=== PATIENT | female | born 1945 | race Caucasian/White ===

== ENCOUNTER → 2020-09-23 16:13 | Outpatient (CLI) | payer MEDICARE, SELFPAY ==
[2017-03-07 13:18] VITALS: BMI 35.6
[2020-09-23 17:49] LABS: Absolute Lymphocyte Count 2.27 X10^3/uL (0.83-4.51); Absolute Neutrophil Count 4.5 X10^3/uL (2.0-7.7); Basophil# 0.07 X10^3/uL; Basophil% 0.9 % (0-1); Eosinophil# 0.14 X10^3/uL; Eosinophils% 1.8 % (0-5); Hematocrit 44.4 % (37-47); Hemoglobin 13.3 g/dL (12.0-15.0); Lymphocyte # 2.27 X10^3/ul (0.83-4.51); Lymphocyte % 29.5 % (19-41); Mean Corpuscular Hgb 28.9 pg (27.0-32.0); Mean Corpuscular Volume 96.5 fL (81-99); Mean Platelet Vol. 10.5 fl (6.2-12.0); Monocyte# 0.71 X10^3/uL; Monocyte% 9.2 % (0-10); NRBC Flagged by Analyzer 0 % (0-5); Neutrophil # 4.45 X10^3/uL (2.7-7.7); Neutrophil % 57.9 % (47-70); Platelet Count 300 K/mm3 (150-450); RBC Distribution Width SD 45.8 fl (35.1-43.9); White Blood Count 7.7 K/mm3 (4.4-11.0)
[2020-09-23 18:08] LABS: Vitamin B12 369 pg/mL (211-911)
[2020-09-23 18:26] LABS: ALB/GLOB Ratio 0.9 RATIO (0.9-2.4); AST(SGOT) 20 U/L (15-37); Alanine Aminotransfer ALT/SGPT 23 U/L (13-56); Albumin, Serum 3.7 g/dL (3.2-5.0); Alkaline Phosphatase 84 U/L (45-117); Anion Gap 7 (5-15); BUN 25 mg/dL (7-18); BUN/Creat Ratio 20.5 RATIO (10-20); Calcium,Total 9.6 mg/dL (8.5-10.1); Chloride 106 mmol/L (98-107); Cholesterol 257 mg/dL (200); Creatinine, Serum 1.22 mg/dL (0.55-1.02); EST Glomerular Filtration Rate 46 mL/min (>60); Est Glom Filt Rate - Afr Amer 55 mL/min (>60); Globulin 4.1 g/dL (2.2-4.2); Glucose 103 mg/dL (74-106); High Density Lipoprotein 45 mg/dL; Magnesium 2.3 mg/dL (1.6-2.6); Potassium 4.3 mmol/L (3.5-5.1); Protein, Total 7.8 g/dL (6.4-8.2); Sodium Level 138 mmol/L (136-145); Thyroid Stim Hormone (TSH) 2.31 uIU/mL (0.358-3.74); Triglycerides 205 mg/dL; Very Low Density Lipoprotein 41 mg/dL (5-40)
[2020-09-25 10:18] LABS: Hemoglobin A1c 6.4 % (3.8-5.6)
[2020-10-03 20:51] LABS: Vitamin B1, Thiamine 190.1 nmol/L (66.5-200.0)
== END ==
PROVIDERS: PCP Family Medicine; Referring Provider Family Medicine; Visit Provider Family Medicine
DX: I10 Essential (primary) hypertension (principal); G62.9 Polyneuropathy, unspecified; R73.09 Other abnormal glucose; R19.7 Diarrhea, unspecified
CPT/HCPCS: 36415; 80053; 80061; 82607; 83036; 83735; 84207; 84425; 84443; 85025

== ENCOUNTER → 2020-09-30 14:21 | Outpatient (CLI) | payer MEDICARE, SELFPAY ==
[2017-03-07 13:18] VITALS: BMI 35.6
[2020-09-30 17:54] LABS: Anion Gap 7 (5-15); BUN 27 mg/dL (7-18); BUN/Creat Ratio 23.5 RATIO (10-20); Calcium,Total 9.3 mg/dL (8.5-10.1); Chloride 107 mmol/L (98-107); Creatinine, Serum 1.15 mg/dL (0.55-1.02); EST Glomerular Filtration Rate 49 mL/min (>60); Est Glom Filt Rate - Afr Amer 59 mL/min (>60); Glucose 109 mg/dL (74-106); Potassium 4.2 mmol/L (3.5-5.1); Sodium Level 140 mmol/L (136-145)
[2020-09-30 18:06] LABS: Hemoglobin A1c 6.4 % (3.8-5.6)
== END ==
PROVIDERS: PCP Family Medicine; Referring Provider Family Medicine; Visit Provider Family Medicine
DX: R94.4 Abnormal results of kidney function studies (principal); R73.09 Other abnormal glucose
CPT/HCPCS: 36415; 80048; 83036

== ENCOUNTER → 2020-10-08 13:59 | Outpatient (CLI) | payer MEDICARE, SELFPAY ==
[2020-10-06 14:30] VITALS: BMI 37.8
--- NOTE | 2020-10-08 14:03 | ECHOD_ITS ---
Reason For Study: Murmur Procedure This was a 2D Doppler, Color Flow transthoracic echocardiogram. The study was technically difficult. Exam performed in department. Left Ventricle Normal size and thickness. Left ventricular systolic function is normal. The estimated ejection fraction is 65 %. Diastolic function is indeterminate. No regional wall motion abnormalities noted. Right Ventricle Normal RV size. Normal systolic function. Atria The left atrium is mildly enlarged. Normal right atrium. No doppler evidence for ASD. Mitral Valve There is moderate mitral annular calcification. Extension of the mitral annular calcification on the base of the posterior mitral valve leaflet. Mild (1+) mitral valve insufficiency. Tricuspid Valve Mild focal calcification of the tricuspid valve. Mild tricuspid valve insufficiency. Right ventricular systolic pressure estimated to be 29 mmHg. Aortic Valve Trisinus/trileaflet aortic valve. Mild focal aortic valve calcification. Pulmonic Valve The pulmonic valve is not well visualized. Great Vessels Normal sized aortic root. Pericardium/Pleural No pericardial effusion. MMode/2D Measurements & Calculations LVIDd: 5.0 cm IVSd: 1.0 cm Ao root diam: 2.5 cm LVIDs: 2.6 cm LVPWd: 1.0 cm RVDd: 3.3 cm FS: 48.0 % LAV(MOD-sp2): 66.2 ml LVAd ap4: 23.7 cm2 SV(MOD-sp4): 43.9 ml LVLd ap4: 7.2 cm EDV(MOD-sp4): 63.5 ml EDV(sp4-el): 66.3 ml LVAs ap4: 11.1 cm2 LVLs ap4: 5.3 cm ESV(MOD-sp4): 19.6 ml ESV(sp4-el): 20.0 ml EF(MOD-sp4): 69.1 % EF(sp4-el): 69.8 % SV(sp4-el): 46.3 ml LA A4 area: 18.6 cm2 LA dimension(2D): 3.4 cm RA A4 area: 13.4 cm2 Doppler Measurements & Calculations MV E max dionicio: 95.5 cm/sec Lat Peak E' Dionicio: 6.8 cm/sec Med Peak E' Dionicio: 5.7 cm/sec MV A max dionicio: 106.1 cm/sec E/E' lat: 14.1 E/E' med: 16.6 MV E/A: 0.90 Ao V2 max: 188.3 cm/sec LV V1 max: 90.2 cm/sec PA V2 max: 75.7 cm/sec Ao max P.2 mmHg LV V1 max P.3 mmHg Ao V2 mean: 135.8 cm/sec Ao mean P.1 mmHg Ao V2 VTI: 45.3 cm TR max dionicio: 255.7 cm/sec TR max P.2 mmHg ECHO/Echo Complete Interpretation Summary The study was technically difficult. Left ventricular systolic function is normal. The estimated ejection fraction is 65 %. The left atrium is mildly enlarged. There is moderate mitral annular calcification. Extension of the mitral annular calcification on the base of the posterior mitr al valve leaflet. Mild (1+) mitral valve insufficiency. Mild focal calcification of the tricuspid valve. Mild tricuspid valve insufficiency. Mild focal aortic valve calcification. Right ventricular systolic pressure estimated to be 29 mmHg. Diastolic function is indeterminate. Ordering Physician: Garry Dillon Referring Physician: Garry Dillon Performed By: Ava Welch, CRISELDA, RVT
== END ==
PROVIDERS: PCP Family Medicine; Referring Provider Family Medicine; Visit Provider Family Medicine
DX: R01.1 Cardiac murmur, unspecified (principal)
CPT/HCPCS: 93306

== ENCOUNTER 2020-11-04 07:42 | Day surgery (SDC) | payer MEDICARE, SELFPAY ==
[2020-10-06 14:30] VITALS: BMI 37.8
[2020-11-04] VITALS (16 sets, daily range): BP systolic 104–147; BP diastolic 50–105; PULSE 57–85; RESP 16–18; TEMP 35.4–36.3; O2SAT 93–100; BMI 36.8
--- NOTE | 2020-11-04 08:09 | PCM.HP.BLA ---
History and Physical Date of Admission: 11/04/20 Intake Visit Reasons: [facility]SCOPE Allergies Penicillins Allergy (Verified 10/06/20 14:30) Hives Sulfa (Sulfonamide Antibiotics) Allergy (Verified 10/06/20 14:30) Hives morphine Adverse Reaction (Verified 10/06/20 14:30) Nausea/Vom/Diarrhea Medications diphenoxylate-atropine 2.5 mg-0.025 mg tablet 1 tab PO DAILY 10/06/20 [History Confirmed 10/06/20] losartan 100 mg tablet mg PO 10/06/20 [History Confirmed 10/06/20] metoprolol succinate 100 mg tablet,extended release 24 hr 100 mg PO BID 10/06/20 [History Confirmed 10/06/20] omeprazole 20 mg capsule,delayed release 20 mg PO DAILY 10/06/20 [History Confirmed 10/06/20] sertraline 100 mg tablet 100 mg PO DAILY 10/06/20 [History Confirmed 10/06/20] COUNT INCLUDES THE [facility] Medical History (Updated 10/06/20 @ 16:[address] Tom Parnell MD) Depression Diarrhea GERD (gastroesophageal reflux disease) HTN (hypertension) Macular degeneration Surgical History (Updated 10/06/20 @ 14:29 by Maricel Boyd) S/P carpal tunnel release S/P laparoscopic cholecystectomy S/P shoulder replacement S/P tonsillectomy Family History (Updated 10/06/20 @ 14:40 by Maricel Boyd) Father Colon cancer Grandmother CVA (cerebral vascular accident) Grandfather CVA (cerebral vascular accident) Mother Heart disease Social History (Updated 10/06/20 @ 14:29 by Maricel Boyd) Smoking Status: Former smoker alcohol intake: current alcohol intake frequency: holidays/special occasions only HPI HPI HPI: TING CORRIGAN, is a 74 F who presents to the office today for surgical consultation regarding diarrhea and Hemoccult positive stool. The patient is referred by Dr Garry Dillon and a written copy my surgical consult recommendations will be returned to him. The patient is recently converted her care from the [facility] to Dr. Dillon. Apparently she has had chronic diarrhea. Recent stool analysis performed at the [facility] was Hemoccult positive. Laboratory currently does not demonstrate a anemia with a hemoglobin of 13.3 and hematocrit 44.4. BUN is 25 and creatinine 1.22 with an estimated GFR of 46. This would be chronic kidney disease stage IIIa. It is also of note that recent laboratory detects triglyceride levels of 205 with a cholesterol level of 257 and an LDL of 171 with a VLDL 41. It is of additional note that the patient is on chronic omeprazole therapy. She has been taking it routinely for at least 4 years. She has never had a previous upper endoscopy. Her most recent colonoscopy was April 13, 2011. This was performed by Dr. Juice Weinstein. Diverticulosis was identified. Moderate spasm in the sigmoid colon. Random biopsies were performed for microcytic colitis. It is of note that there is increased colon cancer risk due to colon cancer in her father. Repeat examination at 5 years was recommended. ROS General General: Yes fatigue; No weight change, appetite, colon cancer, breast cancer or weakness HEENT HEENT: No difficulty swallowing, eye injury, eye surgery, swollen glands or hoarseness Endo Endocrine: No thyroid disease, diabetes mellitus, thyroid cancer, Hair loss, heat intolerance or cold intolerance Skin Skin: No rash or changing moles Breast Breast: No left breast lump, right breast lump, nipple discharge, breast pain, abnormal mammogram, abnormal US or breast enlargement Musc Musculoskeletal: Yes back problems and arthritis; No rheumatoid arthritis, gout or joint pain Cardio Cardiovascular: Yes murmur and high blood pressure; No pacemaker, heart disease, atrial fibrillation, heart attack, heart stent, palpitations, shortness of breat with exertion or chest pain Psych Psychiatric: Yes depression and anxiety; No hearing voices Resp Respiratory: No shortness of breath, No sleep apnea, No cough, No COPD, No asthma, No emphysema and No wheezing Gastro Gastrointestinal: No abdominal pain, No nausea or vomiting, Yes diarrhea, Yes constipation, Yes blood in stool, Yes acid reflux, Yes hemorrhoids, No ulcers, No gallbladder problem and No black,tarry stools Matthias Hematologic: No blood thinners, No blood disorders, No bleeding, No anemia and No blood clots Neuro Neurologic: No system reviewed and no additional complaints, except as documented, No as per HPI, No abnormal gait, No abnormal hearing, No abnormal movements, No abnormal speech, No behavioral changes, No burning sensations, No confusion, No convulsions, No disequilibrium, No dizziness, No localized weakness, No frequent falls, No headache(s), No lack of coordination, No loss of vision, No memory loss, Yes numbness, No other visual disturbances, No radicular pain, No restless legs, No sensory deficit, No syncope, Yes tingling, No tremor(s), No weakness and No other Exam Const General: cooperative, healthy appearing, comfortable and no acute distress Nutritional Appearance: obese Orientation: alert, awake and oriented x3 HENMT Head: normal to inspection Eyes General: appearance normal, both eyes and all related structures Resp Effort & Inspection: respiratory distress Auscultation: clear to auscultation bilaterally Cardio Rate: regular rate Rhythm: regular rhythm GI Palpation: soft Other: Overweight, mildly diffusely tender, no focal masses, body habitus makes examination challenging Musc Cervical Spine: normal cervical lordosis Neuro Cognition: normal cognition Extrem General: no calf tenderness bilaterally Psych Thought Process: normal COVID (Procedure Consent) Procedure Criteria Procedure Criteria: Yes Elective The surgeon/proceduralist and patient have discussed in detail the risk of exposure to and/or potential harm posed by the COVID-19 virus with having a surgery/procedure at this time versus the risk of delaying the surgery/procedure. It is not possible to know either the risk of delaying the surgery or procedure or chance of getting an infection with perfect accuracy, but a joint decision was made between the patient and the surgeon/proceduralist to proceed at this time with the scheduled surgery/procedure as indicated on the consent form. Assessment and Plan Assessment and Plan (1) Family history of colon cancer in father: Status: Acute (2) Heme positive stool: Status: Acute (3) Chronic diarrhea: Status: Chronic (4) GERD (gastroesophageal reflux disease): Status: Acute Plan Details Additional Comments: I recommend to the patient a combined esophagogastroduodenoscopy with possible biopsy and colonoscopy with possible biopsy or polypectomy as indicated. She is aware of the technique, benefit, risk and alternatives. She has had an opportunity to ask and have questions answered. It is of note that she previously has documented a more difficult colonoscopy performed by Dr. Juice Weinstein April 14, 2011. Family history of colon cancer in her father. Ongoing GERD symptoms and utilization of a PPI. We will utilize a 2-day bowel prep. I anticipate using monitored anesthesia care. I appreciate the opportunity of assisting with her surgical care Copy: Dr Garry Parnell M.D., F.A.C.S. Coding Level of Care Code 54735 Diagnoses Family history of colon cancer in father Z80.0 Heme positive stool R19.5 Chronic diarrhea K52.9 GERD (gastroesophageal reflux disease) K21.9 I have re-examined the patient. There are no clinical changes since date of exam.
[2020-11-04] MEDS: Lactated Ringers 1,000 ML 100 ML IV (08:35)
--- NOTE | 2020-11-04 09:00 | IMM_PTH ---
PATIENT: TING CORRIGAN LOC: EN U#:[id number] AGE/SX: 75/F ROOM: RE11/04/[address]: Dr. Tom Parnell MD : 1945 BED: DIS: 11/04/2020 SPEC #: [id number] RECD: 11/04/20 12:15 STATUS: GLORIA REQ #: [id number] RIGO: 11/04/20 09:[address]: Tom Parnell DEPT: IMMUNOHISTOCHEMISTRY RECD BY: Bia Wiseman ENTERED: 11/04/20 12:16 SP TYPE: IMMUNO OTHR DR: Dr. Garry Dillon MD Tissues: A - Stomach, NOS Procedures: H Pylori (initial) PHYSICIAN & INSTITUTION [place] [address] SPECIMEN INFORMATION: Tissue Source: A ? Antral biopsy Clinical Info: Heme-positive stool, chronic diarrhea, GERD, family history colon cancer Specimen Number: [id number] CPT code: 43611 METHODOLOGY: Deparaffinized sections of prefer/formalin-fixed tissue or PAP/DQ stained slides are incubated with monoclonal/polyclonal antibodies/oligonucleotide probes. Localization is made via biotin free immunoperoxidase method. Appropriate controls are performed and reacted as expected. Results on target cell population are indicated in the following table: RESULTS: ANTIBODY / CLONE RESULT Block A H Pylori (polyclonal) negative These tests were developed and their performance characteristics determined by [facility]. They may not have been cleared or approved by the U.S. Food and Drug Administration. The FDA has determined that such clearance or approval is not necessary. INTERPRETATION: A. Antral biopsy: Negative for Helicobacter pylori organisms. VICKI:melissa 11/05/2020
--- NOTE | 2020-11-04 09:00 | EGD_PTH ---
PATIENT: TING CORRIGAN LOC: EN U#:[id number] AGE/SX: 75/F ROOM: RE11/04/[address]: Dr. Tom Parnell MD : 1945 BED: DIS: 11/04/2020 SPEC #: [id number] RECD: 11/04/20 10:25 STATUS: GLORIA KRISTYN #: [id number] RIGO: 11/04/20 09:[address]: Tom Parnell DEPT: SURGICAL PATHOLOGY RECD BY: Debbie Rivers ENTERED: 11/04/20 13:16 SP TYPE: EGD BIOPSY OT DR: Dr. Garry Dillon MD Tissues: A - Gastric mucous membrane B - Esophagus, NOS C - COLON BIOPSY D - COLON BIOPSY E - COLON BIOPSY Procedures: Special Stain Group II Surgery Specimen Level IV Alcian Blue/PAS (control) HEADER OPERATION: Colonoscopy, EGD ([facility] [place], [place]) PRE-OP DIAGNOSIS: Heme-positive stool, chronic diarrhea, GERD, family history colon cancer TISSUE SUBMITTED: A - Antral biopsy for H. pylori and path, B - Distal esophagus biopsy, C - Random colon biopsies, D - Hepatic flexure polyp, E - Proximal transverse MICROSCOPIC DIAGNOSIS A. Antral biopsy: A fragment of gastric mucosa with minimal chronic inflammation and congestion. See comment. B. Distal esophagus, biopsy: Fragments of gastroesophageal mucosa with chronic inflammation. Intestinal metaplasia (goblet cell metaplasia) is not identified. See comment. C. Colon, random biopsy: Fragments of colonic mucosa, no pathologic diagnosis. D. Hepatic flexure polyp, biopsy: Fragments of tubular adenoma. E. Proximal transverse colon polyp, biopsy: Tubular adenoma. SJ:rg 11/05/2020 COMMENT A. The results of immunohistochemistry for Helicobacter pylori will be reported separately ([id number]). C. Alcian blue/PAS stain with matched control is used in the evaluation of the specimen. MICROSCOPIC DESCRIPTION Slides are reviewed. GROSS DESCRIPTION A - Received in fixative is one container labeled with the patient's name and designated antral biopsy. The specimen consists of one irregular fragment of light jones soft tissue that measures 0.3 x 0.1 x 0.1 cm. The specimen is totally submitted in one cassette. B - Received in fixative is one container labeled with the patient's name and designated distal esophagus biopsy. The specimen consists of multiple irregular fragments of light jones soft tissue that in aggregate measure 0.4 x 0.2 x 0.1 cm. The specimen is totally submitted in one cassette. C - Received in fixative is one container labeled with the patient's name and designated random colon biopsy. The specimen consists of multiple irregular fragments of light jones soft tissue that in aggregate measure 1.4 x 0.3 x 0.1 cm. The specimen is totally submitted in one cassette. D - Received in fixative is one container labeled with the patient's name and designated hepatic flexure polyp. The specimen consists of multiple irregular fragments of light jones soft tissue that in aggregate measure 1.5 x 0.6 x 0.3 cm. The specimen is totally submitted in one cassette. E - Received in fixative is one container labeled with the patient's name and designated proximal transverse polyp. The specimen consists of one irregular fragment of light jones soft tissue that measures 0.2 x 0.2 x 0.1 cm. The specimen is totally submitted in one cassette. / SJ:rg 11/04/20 TC:1 CPT: 97679 x5, 24243
[2020-11-04] MEDS: 0.9% Saline Lock 10 ML Syringe IV (09:42)
--- NOTE | 2020-11-04 10:19 | OP.CCLET_ITS ---
11/04/2020 Garry Dillon [address] [place] [address] Re : Upper GI endoscopy procedure for Sirena Crain Dear Dr. Dillon This procedure was performed on Wednesday, November 04, 2020. My impressions and recommendations are as follows: Impressions : - Reflux esophagitis. Biopsied. - Small hiatal hernia. - Erythematous mucosa in the antrum. Biopsied. - Bilious gastric fluid. - Normal examined duodenum. Recommendations : - Discharge patient to home. - Resume previous diet. - Continue present medications. - Use sucralfate tablets 1 gram PO QID. - Return to my office in 1 week. My findings are described in the full procedure note, which is enclosed. If I can be of further assistance, please feel free to contact me at Doctor phone number(s): Work: . Sincerely, Tom Parnell MD 11/04/2020 10:18:34 AM This report has been signed electronically.
--- NOTE | 2020-11-04 10:19 | OP.EGD_ITS ---
Patient Name: Sirena Crain Procedure Date: 11/04/2020 9:18 AM Date of : 1945 Age: 75 Procedure: Upper GI endoscopy Indications: Heartburn Providers: Tom Parnell MD Referring MD: Tom Parnell MD Medicines: See the Anesthesia note for documentation of the administered medications Complications: No immediate complications. Procedure: Pre-Anesthesia Assessment: - Prior to the procedure, a History and Physical was performed, and patient medications and allergies were reviewed. The patient's tolerance of previous anesthesia was also reviewed. The risks and benefits of the procedure and the sedation options and risks were discussed with the patient. All questions were answered, and informed consent was obtained. Prior Anticoagulants: The patient has taken no previous anticoagulant or antiplatelet agents. ASA Grade Assessment: II - A patient with mild systemic disease. After reviewing the risks and benefits, the patient was deemed in satisfactory condition to undergo the procedure. After obtaining informed consent, the endoscope was passed under direct vision. Throughout the procedure, the patient's blood pressure, pulse, and oxygen saturations were monitored continuously. The gastroscope was introduced through the mouth, and advanced to the second part of duodenum. The upper GI endoscopy was accomplished without difficulty. The patient tolerated the procedure well. Scope In: 9:26:23 AM Scope Out: 9:31:32 AM Total Procedure Duration Time 0 hours 5 minutes 9 seconds Findings: Esophagitis with no bleeding was found 40 cm from the incisors. Biopsies were taken with a cold forceps for histology. A small hiatal hernia was present. Diffuse mildly erythematous mucosa without bleeding was found in the gastric antrum. Biopsies were taken with a cold forceps for histology. Bilious fluid was found in the gastric antrum. The examined duodenum was normal. Impression: - Reflux esophagitis. Biopsied. - Small hiatal hernia. - Erythematous mucosa in the antrum. Biopsied. - Bilious gastric fluid. - Normal examined duodenum. Recommendation: - Discharge patient to home. - Resume previous diet. - Continue present medications. - Use sucralfate tablets 1 gram PO QID. - Return to my office in 1 week. Procedure Code(s): --- Professional --- 32920, Esophagogastroduodenoscopy, flexible, transoral; with biopsy, single or multiple Diagnosis Code(s): --- Professional --- K21.0, Gastro-esophageal reflux disease with esophagitis K44.9, Diaphragmatic hernia without obstruction or gangrene K31.89, Other diseases of stomach and duodenum R12, Heartburn CPT copyright 2017 [employer]. All rights reserved. The codes documented in this report are preliminary and upon finish inspector review may be revised to meet current compliance requirements. Tom Parnell MD 11/04/2020 10:18:34 AM This report has been signed electronically. Number of Addenda: 0 Note Initiated On: 11/04/2020 9:18 AM
--- NOTE | 2020-11-04 10:24 | OP.COLON_ITS ---
Patient Name: Sirena Crain Procedure Date: 11/04/2020 9:33 AM Date of : 1945 Age: 75 Procedure: Colonoscopy Indications: Family history of colon cancer in a first-degree relative Providers: Tom Parnell MD Referring MD: Tom Parnell MD Medicines: See the Anesthesia note for documentation of the administered medications Patient Profile: Last Colonoscopy: March 2011. Complications: No immediate complications. Procedure: Pre-Anesthesia Assessment: - Prior to the procedure, a History and Physical was performed, and patient medications and allergies were reviewed. The patient's tolerance of previous anesthesia was also reviewed. The risks and benefits of the procedure and the sedation options and risks were discussed with the patient. All questions were answered, and informed consent was obtained. Prior Anticoagulants: The patient has taken no previous anticoagulant or antiplatelet agents. ASA Grade Assessment: II - A patient with mild systemic disease. After reviewing the risks and benefits, the patient was deemed in satisfactory condition to undergo the procedure. After I obtained informed consent, the scope was passed under direct vision. Throughout the procedure, the patient's blood pressure, pulse, and oxygen saturations were monitored continuously. The colonoscope was introduced through the anus and advanced to the cecum, identified by appendiceal orifice and ileocecal valve. The colonoscopy was performed with moderate difficulty due to multiple polyps. The patient tolerated the procedure well. The quality of the bowel preparation was good. Scope In: 9:34:30 AM Scope Withdrawal Time 0 hours 30 minutes 8 seconds Scope Out: 10:11:39 AM Total Procedure Duration Time 0 hours 37 minutes 9 seconds Findings: Hemorrhoids were found on perianal exam. A 29 mm polyp was found in the hepatic flexure. The polyp was sessile. Polypectomy was attempted, initially using a saline injection-lift technique with a hot snare. Polyp resection was incomplete with this device. This intervention then required a different device and polypectomy technique. The polyp was removed with a hot snare. Polyp resection was incomplete, and the resected tissue was partially retrieved. To prevent bleeding post-intervention, one hemostatic clip was successfully placed. There was no bleeding at the end of the procedure. Area was tattooed with an injection of 5 mL of Batsheva ink. A 5 mm polyp was found in the proximal transverse colon. The polyp was sessile. The polyp was removed with a hot snare. Resection and retrieval were complete. Multiple diverticula were found in the sigmoid colon and descending colon. Biopsies for histology were taken with a cold forceps from the entire colon for evaluation of microscopic colitis. Impression: - Hemorrhoids found on perianal exam. - One 29 mm polyp at the hepatic flexure, partially removed with a hot snare, piecemeal. Polyp resection was incomplete, and the resected tissue was retrieved. Clip was placed. Tattooed with batsheva ink. - One 5 mm polyp in the proximal transverse colon, removed with a hot snare. Resected and retrieved. - Diverticulosis in the sigmoid colon and in the descending colon. - Biopsies were taken with a cold forceps from the entire colon for evaluation of microscopic colitis. Recommendation: - Discharge patient to home. - Resume previous diet. - Continue present medications. - Repeat colonoscopy in 1 month for surveillance based on pathology results. - Return to my office in 1 week. Procedure Code(s): --- Professional --- 25174, Colonoscopy, flexible; with removal of tumor(s), polyp(s), or other lesion(s) by snare technique 60349, Colonoscopy, flexible; with directed submucosal injection(s), any substance 87552, 59, Colonoscopy, flexible; with biopsy, single or multiple Diagnosis Code(s): --- Professional --- K64.9, Unspecified hemorrhoids D12.3, Benign neoplasm of transverse colon (hepatic flexure or splenic flexure) Z80.0, Family history of malignant neoplasm of digestive organs K57.30, Diverticulosis of large intestine without perforation or abscess without bleeding CPT copyright 2017 [employer]. All rights reserved. The codes documented in this report are preliminary and upon outreach director review may be revised to meet current compliance requirements. Tom Parnell MD 11/04/2020 10:24:35 AM This report has been signed electronically. Number of Addenda: 0 Note Initiated On: 11/04/2020 9:33 AM
--- NOTE | 2020-11-04 10:25 | OP.CCLET_ITS ---
11/04/2020 Garry Dillon [address] [place] [address] Re : Colonoscopy procedure for Sirena Crain Dear Dr. Dillon This procedure was performed on Wednesday, November 04, 2020. My impressions and recommendations are as follows: Impressions : - Hemorrhoids found on perianal exam. - One 29 mm polyp at the hepatic flexure, partially removed with a hot snare, piecemeal. Polyp resection was incomplete, and the resected tissue was retrieved. Clip was placed. Tattooed with evaristo ink. - One 5 mm polyp in the proximal transverse colon, removed with a hot snare. Resected and retrieved. - Diverticulosis in the sigmoid colon and in the descending colon. - Biopsies were taken with a cold forceps from the entire colon for evaluation of microscopic colitis. Recommendations : - Discharge patient to home. - Resume previous diet. - Continue present medications. - Repeat colonoscopy in 1 month for surveillance based on pathology results. - Return to my office in 1 week. My findings are described in the full procedure note, which is enclosed. If I can be of further assistance, please feel free to contact me at Doctor phone number(s): Work: . Sincerely, Tom Parnell MD 11/04/2020 10:24:35 AM This report has been signed electronically.
--- NOTE | 2020-11-04 10:29 | RAD_ITS ---
STUDY: X-RAY - ABDOMEN/PELVIS REASON FOR EXAM: Female, 75 years old. Post colonoscopy clip placement. TECHNIQUE: Two AP supine views of the abdomen and pelvis. COMPARISON: None. FINDINGS: Elevation of the right hemidiaphragm. There is an unremarkable bowel gas pattern. The patient is status post cholecystectomy. Clip has been placed in the region of the proximal ascending colon just distal to the ileocecal valve. Normal soft tissue structures. There are diffuse degenerative changes of the visualized lumbar spine. RAD/Abd Decub and/or Erect(Portabl IMPRESSION: The clip is in the proximal ascending colon just distal to the ileocecal valve. Electronically Signed: Tenzin Real MD at 12:08 EDT , Service support ,
[2020-11-04 11:30] LABS: Absolute Lymphocyte Count 1.14 X10^3/uL (0.83-4.51); Absolute Neutrophil Count 5.4 X10^3/uL (2.0-7.7); Basophil# 0.03 X10^3/uL; Basophil% 0.4 % (0-1); Eosinophil# 0.13 X10^3/uL; Eosinophils% 1.8 % (0-5); Hematocrit 38.8 % (37-47); Hemoglobin 12.3 g/dL (12.0-15.0); Lymphocyte # 1.14 X10^3/ul (0.83-4.51); Lymphocyte % 15.6 % (19-41); Mean Corp Hgb Conc 31.7 g/dL (32-36); Mean Corpuscular Hgb 29.7 pg (27.0-32.0); Mean Corpuscular Volume 93.7 fL (81-99); Monocyte% 8.2 % (0-10); NRBC Flagged by Analyzer 0 % (0-5); Neutrophil # 5.38 X10^3/uL (2.7-7.7); Neutrophil % 73.5 % (47-70); Platelet Count 225 K/mm3 (150-450); RBC Distribution Width CV 12.6 % (11.6-14.6); RBC Distribution Width SD 43.4 fl (35.1-43.9); Red Blood Count 4.14 M/mm3 (4.2-5.4); White Blood Count 7.3 K/mm3 (4.4-11.0)
[2020-11-04 11:45] LABS: Anion Gap 6 (5-15); BUN 14 mg/dL (7-18); BUN/Creat Ratio 11.8 RATIO (10-20); Chloride 106 mmol/L (98-107); Creatinine, Serum 1.19 mg/dL (0.55-1.02); EST Glomerular Filtration Rate 47 mL/min (>60); Est Glom Filt Rate - Afr Amer 57 mL/min (>60); Estimated Creatinine Clearance 38.24 ml/min; Glucose 135 mg/dL (74-106); Potassium 3.7 mmol/L (3.5-5.1); Sodium Level 140 mmol/L (136-145)
== END 2020-11-04 13:34 ==
LOC: EN 07:44 → AC 07:44
PROVIDERS: PCP Family Medicine; Referring Provider Family Medicine; Visit Provider Surgery
PROC: 0DJD8ZZ Inspection of Lower Intestinal Tract, Via Natural or Artificial Opening Endoscopic (ICD-10-PCS; CPT 45378; principal; 2020-11-04 08:55)
DX: D12.3 Benign neoplasm of transverse colon (principal); K21.00 Gastro-esophageal reflux disease with esophagitis, without bleeding; K64.9 Unspecified hemorrhoids; K57.30 Diverticulosis of large intestine without perforation or abscess without bleeding; K44.9 Diaphragmatic hernia without obstruction or gangrene; Z80.0 Family history of malignant neoplasm of digestive organs; F32.9 Major depressive disorder, single episode, unspecified; I12.9 Hypertensive chronic kidney disease with stage 1 through stage 4 chronic kidney disease, or unspecified chronic kidney disease; N18.31 Chronic kidney disease, stage 3a; E66.9 Obesity, unspecified; Z68.36 Body mass index [BMI] 36.0-36.9, adult; Z87.891 Personal history of nicotine dependence; Z79.899 Other long term (current) drug therapy; Z20.822 Contact with and (suspected) exposure to COVID-19
CPT/HCPCS: 43239; 45380; 45381; 74019; 80048; 85025; 87426; 88305; 88313; 88342; C9803; J7120; A4216; A4648; J2405

== ENCOUNTER → 2020-11-05 11:28 | Outpatient (CLI) | payer MEDICARE, SELFPAY ==
[2020-11-04 08:18] VITALS: BMI 36.8
[2020-11-05 15:09] LABS: Hematocrit 39.4 % (37-47); Hemoglobin 12.4 g/dL (12.0-15.0); Mean Corp Hgb Conc 31.5 g/dL (32-36); Mean Corpuscular Hgb 29.7 pg (27.0-32.0); Mean Corpuscular Volume 94.3 fL (81-99); Platelet Count 264 K/mm3 (150-450); RBC Distribution Width SD 44.8 fl (35.1-43.9); Red Blood Count 4.18 M/mm3 (4.2-5.4); White Blood Count 9.1 K/mm3 (4.4-11.0)
== END ==
PROVIDERS: PCP Family Medicine; Referring Provider Family Medicine; Visit Provider Physician Assistant
DX: R10.9 Unspecified abdominal pain (principal)
CPT/HCPCS: 36415; 85027

== ENCOUNTER → 2021-02-09 15:00 | Outpatient (CLI) | payer MEDICARE, SELFPAY ==
[2021-02-09 17:52] LABS: Absolute Lymphocyte Count 1.74 X10^3/uL (0.83-4.51); Absolute Neutrophil Count 4.6 X10^3/uL (2.0-7.7); Basophil# 0.05 X10^3/uL; Basophil% 0.7 % (0-1); Eosinophil# 0.12 X10^3/uL; Eosinophils% 1.7 % (0-5); Hematocrit 43.7 % (37-47); Hemoglobin 13.9 g/dL (12.0-15.0); Lymphocyte # 1.74 X10^3/ul (0.83-4.51); Lymphocyte % 24.4 % (19-41); Mean Corp Hgb Conc 31.8 g/dL (32-36); Mean Corpuscular Hgb 30.6 pg (27.0-32.0); Mean Corpuscular Volume 96.3 fL (81-99); Mean Platelet Vol. 10.3 fl (6.2-12.0); Monocyte# 0.63 X10^3/uL; Monocyte% 8.8 % (0-10); NRBC Flagged by Analyzer 0 % (0-5); Neutrophil # 4.56 X10^3/uL (2.7-7.7); Neutrophil % 63.8 % (47-70); Platelet Count 300 K/mm3 (150-450); RBC Distribution Width CV 12.9 % (11.6-14.6); Red Blood Count 4.54 M/mm3 (4.2-5.4); White Blood Count 7.1 K/mm3 (4.4-11.0)
[2021-02-09 18:09] LABS: ALB/GLOB Ratio 0.8 RATIO (0.9-2.4); AST(SGOT) 23 U/L (15-37); Alanine Aminotransfer ALT/SGPT 24 U/L (13-56); Albumin, Serum 3.4 g/dL (3.2-5.0); Alkaline Phosphatase 96 U/L (45-117); Anion Gap 7 (5-15); BUN 21 mg/dL (7-18); BUN/Creat Ratio 18.3 RATIO (10-20); Calcium,Total 8.8 mg/dL (8.5-10.1); Chloride 104 mmol/L (98-107); Cholesterol 146 mg/dL (200); Creatinine, Serum 1.15 mg/dL (0.55-1.02); EST Glomerular Filtration Rate 49 mL/min (>60); Est Glom Filt Rate - Afr Amer 59 mL/min (>60); Globulin 4.1 g/dL (2.2-4.2); Glucose 106 mg/dL (74-106); High Density Lipoprotein 45 mg/dL; Phosphorus 4.1 mg/dL (2.5-4.9); Potassium 4.8 mmol/L (3.5-5.1); Protein, Total 7.5 g/dL (6.4-8.2); Sodium Level 137 mmol/L (136-145); Triglycerides 157 mg/dL; Very Low Density Lipoprotein 31 mg/dL (5-40)
[2021-02-09 18:14] LABS: Hemoglobin A1c 6.4 % (3.8-5.6)
[2021-02-10 08:31] LABS: PTHIN 101.2 pg/mL (18.4-80.1)
== END ==
PROVIDERS: PCP Family Medicine; Referring Provider Family Medicine; Visit Provider Family Medicine
DX: N18.30 Chronic kidney disease, stage 3 unspecified (principal); E78.5 Hyperlipidemia, unspecified; R73.02 Impaired glucose tolerance (oral)
CPT/HCPCS: 36415; 80053; 80061; 83036; 83970; 84100; 85025

== ENCOUNTER 2021-09-10 14:52 | Outpatient (CLI) | payer MEDICARE, SELFPAY ==
[2021-09-10 18:17] LABS: Absolute Lymphocyte Count 2.05 X10^3/uL (0.83-4.51); Absolute Neutrophil Count 4.7 X10^3/uL (2.0-7.7); Basophil# 0.04 X10^3/uL; Basophil% 0.5 % (0-1); Eosinophils% 1.3 % (0-5); Hematocrit 43.8 % (37-47); Hemoglobin 13.9 g/dL (12.0-15.0); Lymphocyte # 2.05 X10^3/ul (0.83-4.51); Lymphocyte % 26.6 % (19-41); Mean Corp Hgb Conc 31.7 g/dL (32-36); Mean Corpuscular Volume 94.4 fL (81-99); Mean Platelet Vol. 10.6 fl (6.2-12.0); Monocyte# 0.77 X10^3/uL; NRBC Flagged by Analyzer 0 % (0-5); Neutrophil # 4.72 X10^3/uL (2.7-7.7); Neutrophil % 61.2 % (47-70); Platelet Count 315 K/mm3 (150-450); RBC Distribution Width CV 12.5 % (11.6-14.6); RBC Distribution Width SD 43.7 fl (35.1-43.9); Red Blood Count 4.64 M/mm3 (4.2-5.4); White Blood Count 7.7 K/mm3 (4.4-11.0)
[2021-09-10 18:40] LABS: AST(SGOT) 17 U/L (15-37); Alanine Aminotransfer ALT/SGPT 20 U/L (13-56); Albumin, Serum 3.8 g/dL (3.2-5.0); Alkaline Phosphatase 105 U/L (45-117); Anion Gap 5 (5-15); BUN 28 mg/dL (7-18); BUN/Creat Ratio 23.9 RATIO (10-20); Calcium,Total 9.2 mg/dL (8.5-10.1); Chloride 108 mmol/L (98-107); Cholesterol 143 mg/dL (200); Creatinine, Serum 1.17 mg/dL (0.55-1.02); EST Glomerular Filtration Rate 48 mL/min (>60); Est Glom Filt Rate - Afr Amer 58 mL/min (>60); Glucose 110 mg/dL (74-106); High Density Lipoprotein 50 mg/dL; Phosphorus 3.8 mg/dL (2.5-4.9); Potassium 4.5 mmol/L (3.5-5.1); Protein, Total 7.8 g/dL (6.4-8.2); Sodium Level 138 mmol/L (136-145); Thyroid Stim Hormone (TSH) 2.36 uIU/mL (0.358-3.74); Triglycerides 122 mg/dL; Very Low Density Lipoprotein 24 mg/dL (5-40)
[2021-09-10 20:54] LABS: Hemoglobin A1c 6.4 % (3.8-5.6)
[2021-09-11 08:04] LABS: PTHIN 120.5 pg/mL (18.4-80.1)
== END 2021-09-10 23:59 | disposition home or self-care (01) ==
LOC: MFPLAB 14:58
PROVIDERS: PCP Family Medicine; Referring Provider Family Medicine; Visit Provider Family Medicine
DX: I12.9 Hypertensive chronic kidney disease with stage 1 through stage 4 chronic kidney disease, or unspecified chronic kidney disease (principal); N18.30 Chronic kidney disease, stage 3 unspecified; R73.02 Impaired glucose tolerance (oral)
CPT/HCPCS: 36415; 80053; 80061; 82306; 83036; 83970; 84100; 84443; 85025

== ENCOUNTER 2021-10-13 07:56 | Day surgery (SDC) | payer MEDICARE, SELFPAY ==
[2021-10-13] VITALS (7 sets, daily range): BP systolic 84–144; BP diastolic 40–78; PULSE 55–72; RESP 16; TEMP 36.4–36.7; O2SAT 95–100; BMI 37.5
--- NOTE | 2021-10-13 | COLBX_PTH ---
PATIENT: TING CORRIGAN LOC: EN U#:[id number] AGE/SX: 76/F ROOM: RE10/13/[address]: Dr. Tom Parnell MD : 1945 BED: DIS: 10/13/2021 SPEC #: [id number] RECD: 10/13/21 13:08 STATUS: GLORIA MCCOLLUMCaity #: [id number] RIGO: 10/13/21 00:[address]: Tom Parnell DEPT: SURGICAL PATHOLOGY RECD BY: Lito Henriquez ENTERED: 10/13/21 13:08 SP TYPE: COLON BX OTHR DR: Dr. Garry Dillon MD Tissues: A - Ascending colon B - Gastric mucous membrane C - Descending colon Procedures: Surgery Specimen Level IV HEADER OPERATION: Colonoscopy (MAC), polypectomy PRE-OP DIAGNOSIS: Adenomatous colon polyp TISSUE SUBMITTED: A - Proximal ascending polyp, B - Hepatic flexure polyp, C - Descending polyps (x2) MICROSCOPIC DIAGNOSIS A. Proximal ascending colon, biopsy: Fragments of tubular adenoma. B. Colonic polyp at hepatic flexure, biopsy: Fragments of tubular adenoma. C. Descending colon polyps, biopsy: Fragments of tubular adenoma. AM:melissa 10/14/2021 MICROSCOPIC DESCRIPTION Slides are reviewed. GROSS DESCRIPTION A - Received in fixative is one container labeled with the patient's name and designated proximal ascending colon polyp. The specimen consists of multiple irregular fragments of light jones soft tissue that in aggregate measure 0.9 x 0.9 x 0.3 cm. The specimen is totally submitted in one cassette. B - Received in fixative is one container labeled with the patient's name and designated hepatic flexure polyp. The specimen consists of multiple irregular fragments of light jones soft tissue mixed with fecal material that in aggregate measure 2 x 1 x 0.1 cm. The specimen is totally submitted in one cassette. C - Received in fixative is one container labeled with the patient's name and designated descending polyps. The specimen consists of multiple irregular fragments of light jones soft tissue mixed with fecal material that in aggregate measure 1 x 1 x 0.3 cm. The specimen is totally submitted in one cassette. / VICKI:melissa 10/13/2021 TC:5 CPT: 64103 x3
--- NOTE | 2021-10-13 08:12 | PCM.HP.BLA ---
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 Is patient in pain?: No Allergies Penicillins Allergy (Verified 10/05/21 14:39) Hives Sulfa (Sulfonamide Antibiotics) Allergy (Verified 10/05/21 14:39) Hives morphine Adverse Reaction (Verified 10/05/21 14:39) Nausea/Vom/Diarrhea Medications diphenoxylate-atropine 2.5 mg-0.025 mg tablet 1 tab PO DAILY PRN 10/06/20 [History Confirmed 10/05/21] losartan 100 mg tablet 100 mg PO DAILY 10/06/20 [History Confirmed 10/05/21] metoprolol succinate 100 mg tablet,extended release 24 hr 100 mg PO BID 10/06/20 [History Confirmed 10/05/21] omeprazole 20 mg capsule,delayed release 20 mg PO DAILY 10/06/20 [History Confirmed 10/05/21] sertraline 100 mg tablet 100 mg PO DAILY 10/06/20 [History Confirmed 10/05/21] vit C,Z-Ez-sfehi-lutein-zeaxan [PreserVision AREDS-2] 1 tab PO DAILY 10/30/20 [History Confirmed 10/05/21] ergocalciferol (vitamin D2) 1,250 mcg (50,000 unit) capsule PO 10/05/21 [History Confirmed 10/05/21] gabapentin 100 mg capsule mg PO 10/05/21 [History Confirmed 10/05/21] Is last menstrual period known: No Post menopausal: Yes Patient : No PFSH Medical History (Updated 10/05/21 @ 14:[address] Tom Parnell MD) Abdominal pain Arthritis Back pain Depression Diabetes Diarrhea Gastric reflux GERD (gastroesophageal reflux disease) History of edema History of IBS History of renal disease History of stress test HTN (hypertension) Hx of echocardiogram Macular degeneration Migraine headache Non-smoker Wears glasses Surgical History (Updated 10/05/21 @ 14:28 by Rose Remy) History of colonoscopy (~2020) S/P carpal tunnel release S/P laparoscopic cholecystectomy S/P shoulder replacement S/P tonsillectomy Family History Father Colon cancer Grandmother CVA (cerebral vascular accident) Grandfather CVA (cerebral vascular accident) Mother Heart disease Social History Smoking Status: Never smoker alcohol intake: current alcohol intake frequency: holidays/special occasions only HPI HPI HPI: SIRENA CRAIN, is a 75 F who presents to the office today for surgical follow-up of an incompletely resected hepatic flexure tubular adenoma. Her most recent visit with me was November 10, 2020. She has no complaints today. She has become more sedentary. Body weight is increased. She is not currently getting any purposeful exercise. No abdominal pain. No bright red blood per rectum. She does present with her daughter today. She is in good spirits. My interpretation plan as of November 10, 2020 reflects the following Additional Comments: Suspected bile reflux gastritis improved with sucralfate therapy. I recommend at this time that she continue treatment with the sucralfate. She may consider adjusting doses to see if eliminating a morning or midday or evening dose affects her symptoms. She may be able to get the treatment down to three or two dosings per day. She will see how she clinically progresses with that plan. Otherwise she may need to stay on 30 minutes before meals and at bedtime for more extended period of time. Regarding her diarrhea I did not demonstrate any microcytic colitis. She does not have specific complaints today. Regarding her tubular adenoma of the hepatic flexure. This was incompletely resected due to visualization and access problems. It was marked with a clip and was marked with Batsheva ink tattoo. On pathology there is no evidence of atypia or dysplasia. I recommend to her follow-up colonoscopy at 6 months. She may have that done locally or if she prefers we can arrange a tertiary referral. The patient and her daughter have had an opportunity to ask and have questions answered and are comfortable with this approach. My previous notes reflect the following HPI: SIRENA CRAIN, is a 75 F who presents to the office today for surgical follow-up status post combined esophagogastroduodenoscopy and colonoscopy that are performed for her on November 04, 2020. Her preoperative diagnosis with Hemoccult positive stool and chronic diarrhea. Her upper endoscopy demonstrated some mild gastritis and I felt that this was possibly bile reflux gastritis. She had some chronic distal esophagitis. H. pylori was negative. Random colonic biopsies were unremarkable. At the hepatic flexure she had a 29 mm sessile polyp. I was not able to completely resected. I left a clip there and tattooed the area with ink. Images demonstrated it to be at the hepatic flexure on plain films. It is of note that in the proximal transverse colon I was able to remove and a 5 mm polyp. Sigmoid diverticulosis additionally noted. She had some abdominal discomfort medially post procedure. It was not clear whether this was simply due to the amount of work during the procedure. Plain films of the abdomen were not remarkable and she otherwise did well. On today's visit she notes that her epigastric discomfort reflux symptoms are markedly improved using the sucralfate. She does note that if she skips a dose that she does have recurrent symptoms. As I believe that her symptoms are secondary to bile reflux at this point I recommend that she continue . Antral biopsy: A fragment of gastric mucosa with minimal chronic inflammation and congestion.See comment. B. Distal esophagus, biopsy:Fragments of gastroesophageal mucosa with chronic inflammation.Intestinal metaplasia (goblet cell metaplasia) is not identified.See comment. C. Colon, random biopsy:Fragments ofcolonic mucosa, no pathologic diagnosis. D. Hepatic flexure polyp, biopsy:Fragments of tubular adenoma. E. Proximal transverse colon polyp, biopsy:Tubular adenoma Patient Name: Sirena Crain Procedure Date: 11/04/2020 9:33 AM Date of : 1945 Age: 75 Procedure: Colonoscopy Indications: Family history of colon cancer in a first-degree relative Providers: Tom Parnell MD Referring MD: Tom Parnell MD Medicines: See the Anesthesia note for documentation of the administered medications Patient Profile: Last Colonoscopy: March 2011. Complications: No immediate complications. Procedure: Pre-Anesthesia Assessment: - Prior to the procedure, a History and Physical was performed, and patient medications and allergies were reviewed. The patient's tolerance of previous anesthesia was also reviewed. The risks and benefits of the procedure and the sedation options and risks were discussed with the patient. All questions were answered, and informed consent was obtained. Prior Anticoagulants: The patient has taken no previous anticoagulant or antiplatelet agents. ASA Grade Assessment: II - A patient with mild systemic disease. After reviewing the risks and benefits, the patient was deemed in satisfactory condition to undergo the procedure. After I obtained informed consent, the scope was passed under direct vision. Throughout the procedure, the patient's blood pressure, pulse, and oxygen saturations were monitored continuously. The colonoscope was introduced through the anus and advanced to the cecum, identified by appendiceal orifice and ileocecal valve. The colonoscopy was performed with moderate difficulty due to multiple polyps. The patient tolerated the procedure well. The quality of the bowel preparation was good. Scope In: 9:34:30 AM Scope Withdrawal Time 0 hours 30 minutes 8 seconds Scope Out: 10:11:39 AM Total Procedure Duration Time 0 hours 37 minutes 9 seconds Findings: Hemorrhoids were found on perianal exam. A 29 mm polyp was found in the hepatic flexure. The polyp was sessile. Polypectomy was attempted, initially using a saline injection-lift technique with a hot snare. Polyp resection was incomplete with this device. This intervention then required a different device and polypectomy technique. The polyp was removed with a hot snare. Polyp resection was incomplete, and the resected tissue was partially retrieved. To prevent bleeding post-intervention, one hemostatic clip was successfully placed. There was no bleeding at the end of the procedure. Area was tattooed with an injection of 5 mL of Batsheva ink. A 5 mm polyp was found in the proximal transverse colon. The polyp was sessile. The polyp was removed with a hot snare. Resection and retrieval were complete. Multiple diverticula were found in the sigmoid colon and descending colon. Biopsies for histology were taken with a cold forceps from the entire colon for evaluation of microscopic colitis. Impression: - Hemorrhoids found on perianal exam. - One 29 mm polyp at the hepatic flexure, partially removed with a hot snare, piecemeal. Polyp resection was incomplete, and the resected tissue was retrieved. Clip was placed. Tattooed with batsheva ink. - One 5 mm polyp in the proximal transverse colon, removed with a hot snare. Resected and retrieved. - Diverticulosis in the sigmoid colon and in the descending colon. - Biopsies were taken with a cold forceps from the entire colon for evaluation of microscopic colitis. Recommendation: - Discharge patient to home. - Resume previous diet. - Continue present medications. - Repeat colonoscopy in 1 month for surveillance based on pathology results. - Return to my office in 1 week. Procedure Code(s): --- Professional --- 44252, Colonoscopy, flexible; with removal of tumor(s), polyp(s), or other lesion(s) by snare technique 46238, Colonoscopy, flexible; with directed submucosal injection(s), any substance 33966, 59, Colonoscopy, flexible; with biopsy, single or multiple Diagnosis Code(s): --- Professional --- K64.9, Unspecified hemorrhoids D12.3, Benign neoplasm of transverse colon (hepatic flexure or splenic flexure) Z80.0, Family history of malignant neoplasm of digestive organs K57.30, Diverticulosis of large intestine without perforation or abscess without bleeding CPT copyright 2017 [employer]. All rights reserved. The codes documented in this report are preliminary and upon heel nail rasper review may be revised to meet current compliance requirements. Tom Parnell MD 11/04/2020 10:24:35 AM This report has been signed electronically. Number of Addenda: 0 Note Initiated On: 11/04/2020 9:33 AM Patient Name: Sirena Crain Procedure Date: 11/04/2020 9:18 AM Date of : 1945 Age: 75 Procedure: Upper GI endoscopy Indications: Heartburn Providers: Tom Parnell MD Referring MD: Tom Parnell MD Medicines: See the Anesthesia note for documentation of the administered medications Complications: No immediate complications. Procedure: Pre-Anesthesia Assessment: - Prior to the procedure, a History and Physical was performed, and patient medications and allergies were reviewed. The patient's tolerance of previous anesthesia was also reviewed. The risks and benefits of the procedure and the sedation options and risks were discussed with the patient. All questions were answered, and informed consent was obtained. Prior Anticoagulants: The patient has taken no previous anticoagulant or antiplatelet agents. ASA Grade Assessment: II - A patient with mild systemic disease. After reviewing the risks and benefits, the patient was deemed in satisfactory condition to undergo the procedure. After obtaining informed consent, the endoscope was passed under direct vision. Throughout the procedure, the patient's blood pressure, pulse, and oxygen saturations were monitored continuously. The gastroscope was introduced through the mouth, and advanced to the second part of duodenum. The upper GI endoscopy was accomplished without difficulty. The patient tolerated the procedure well. Scope In: 9:26:23 AM Scope Out: 9:31:32 AM Total Procedure Duration Time 0 hours 5 minutes 9 seconds Findings: Esophagitis with no bleeding was found 40 cm from the incisors. Biopsies were taken with a cold forceps for histology. A small hiatal hernia was present. Diffuse mildly erythematous mucosa without bleeding was found in the gastric antrum. Biopsies were taken with a cold forceps for histology. Bilious fluid was found in the gastric antrum. The examined duodenum was normal. Impression: - Reflux esophagitis. Biopsied. - Small hiatal hernia. - Erythematous mucosa in the antrum. Biopsied. - Bilious gastric fluid. - Normal examined duodenum. Recommendation: - Discharge patient to home. - Resume previous diet. - Continue present medications. - Use sucralfate tablets 1 gram PO QID. - Return to my office in 1 week. Procedure Code(s): --- Professional --- 38671, Esophagogastroduodenoscopy, flexible, transoral; with biopsy, single or multiple Diagnosis Code(s): --- Professional --- K21.0, Gastro-esophageal reflux disease with esophagitis K44.9, Diaphragmatic hernia without obstruction or gangrene K31.89, Other diseases of stomach and duodenum R12, Heartburn CPT copyright 2017 [employer]. All rights reserved. The codes documented in this report are preliminary and upon heel nail rasper review may be revised to meet current compliance requirements. Tom Parnell MD 11/04/2020 10:18:34 AM This report has been signed electronically. Number of Addenda: 0 Note Initiated On: 11/04/2020 9:18 AM Exam Const General: cooperative, comfortable and no acute distress Nutritional Appearance: obese morbidly obese [facility] Head: normal to inspection Eyes General: appearance normal, both eyes and all related structures Resp Effort & Inspection: normal respiratory effort Auscultation: clear to auscultation bilaterally Cardio Rate: regular rate Rhythm: regular rhythm GI Other: Soft, nontender, notably overweight, I cannot detect any internal organs, bowel sounds present unremarkable Musc Cervical Spine: normal cervical lordosis Neuro General: patient alert, patient awake and patient oriented x3 Extrem General: no calf tenderness Psych Appearance: grossly normal Assessment and Plan Assessment and Plan (1) Adenomatous colon polyp: Status: Acute Qualifiers: Colon location: ascending Qualified Code(s): D12.2 - Benign neoplasm of ascending colon Plan - Dr. Tom Parnell MD: Patient has a history of a tubular adenoma of the hepatic flexure of the colon which was tattooed and marked with a marking clip but could not be completely resected. Previous colonoscopy was November 04, 2020. I have recommended to her a repeat attempt. I would anticipate utilizing an adult colonoscope. We have discussed the technique, benefit, risk, alternatives. She is aware that no guarantees of success have been offered. She has had an opportunity to ask and have questions answered. We will perform this with monitored anesthesia care. The patient is aware that there is an increased risk of bleeding or perforation or incomplete resection. Copy: Dr Garry Parnell M.D., F.A.C.S. I have re-examined the patient. There are no clinical changes since date of exam.
[2021-10-13] MEDS: Lactated Ringers 1,000 ML 15 ML IV (08:38)
--- NOTE | 2021-10-13 10:17 | OP.COLON_ITS ---
Patient Name: Sirena Crain Procedure Date: 10/13/2021 9:38 AM Date of : 1945 Age: 76 Procedure: Colonoscopy Indications: High risk colon cancer surveillance: Personal history of colonic polyps Providers: Tom Parnell MD Medicines: See the Anesthesia note for documentation of the administered medications Patient Profile: Last Colonoscopy: 1 year ago. Complications: No immediate complications. Procedure: Pre-Anesthesia Assessment: - Prior to the procedure, a History and Physical was performed, and patient medications and allergies were reviewed. The patient's tolerance of previous anesthesia was also reviewed. The risks and benefits of the procedure and the sedation options and risks were discussed with the patient. All questions were answered, and informed consent was obtained. Prior Anticoagulants: The patient has taken no previous anticoagulant or antiplatelet agents. ASA Grade Assessment: II - A patient with mild systemic disease. After reviewing the risks and benefits, the patient was deemed in satisfactory condition to undergo the procedure. After I obtained informed consent, the scope was passed under direct vision. Throughout the procedure, the patient's blood pressure, pulse, and oxygen saturations were monitored continuously. The adult colonoscope was introduced through the anus and advanced to the cecum, identified by appendiceal orifice and ileocecal valve. The colonoscopy was performed with moderate difficulty due to multiple polyps. The patient tolerated the procedure well. The quality of the bowel preparation was good. Scope In: 9:41:20 AM Scope Withdrawal Time 0 hours 16 minutes 23 seconds Scope Out: 10:08:14 AM Total Procedure Duration Time 0 hours 26 minutes 54 seconds Findings: Hemorrhoids were found on perianal exam. Multiple diverticula were found in the sigmoid colon and descending colon. A 6 mm polyp was found in the proximal ascending colon. The polyp was sessile. The polyp was removed with a hot snare. Resection and retrieval were complete. A 25 mm polyp was found in the hepatic flexure. The polyp was sessile. Polypectomy was attempted, initially using a hot snare. Polyp resection was incomplete with this device. This intervention then required a different device and polypectomy technique. The polyp was removed with a cold biopsy forceps. Resection and retrieval were complete. To prevent bleeding post-intervention, one hemostatic clip was successfully placed. There was no bleeding at the end of the procedure. Two sessile polyps were found in the proximal descending colon. The polyps were 5 to 6 mm in size. These polyps were removed with a hot snare. Resection and retrieval were complete. Impression: - Hemorrhoids found on perianal exam. - Diverticulosis in the sigmoid colon and in the descending colon. - One 6 mm polyp in the proximal ascending colon, removed with a hot snare. Resected and retrieved. - One 25 mm polyp at the hepatic flexure, removed with a cold biopsy forceps. Resected and retrieved. Clip was placed. - Two 5 to 6 mm polyps in the proximal descending colon, removed with a hot snare. Resected and retrieved. Recommendation: - Repeat colonoscopy in 1 year for surveillance. - Telephone my office for pathology results in 1 week. - Discharge patient to home. - Resume previous diet. - Continue present medications. Procedure Code(s): --- Professional --- 25100, Colonoscopy, flexible; with removal of tumor(s), polyp(s), or other lesion(s) by snare technique 85530, 59, Colonoscopy, flexible; with biopsy, single or multiple Diagnosis Code(s): --- Professional --- Z86.010, Personal history of colonic polyps K64.9, Unspecified hemorrhoids D12.2, Benign neoplasm of ascending colon D12.3, Benign neoplasm of transverse colon (hepatic flexure or splenic flexure) D12.4, Benign neoplasm of descending colon K57.30, Diverticulosis of large intestine without perforation or abscess without bleeding CPT copyright 2017 [employer]. All rights reserved. The codes documented in this report are preliminary and upon general farm hand review may be revised to meet current compliance requirements. Tom Parnell MD 10/13/2021 10:17:12 AM This report has been signed electronically. Number of Addenda: 0 Note Initiated On: 10/13/2021 9:38 AM
--- NOTE | 2021-10-13 10:18 | OP.CCLET_ITS ---
10/13/2021 Garry Dillon [address] [place] [address] Re : Colonoscopy procedure for Sirena Crain Dear Dr. Dillon This procedure was performed on Wednesday, October 13, 2021. My impressions and recommendations are as follows: Impressions : - Hemorrhoids found on perianal exam. - Diverticulosis in the sigmoid colon and in the descending colon. - One 6 mm polyp in the proximal ascending colon, removed with a hot snare. Resected and retrieved. - One 25 mm polyp at the hepatic flexure, removed with a cold biopsy forceps. Resected and retrieved. Clip was placed. - Two 5 to 6 mm polyps in the proximal descending colon, removed with a hot snare. Resected and retrieved. Recommendations : - Repeat colonoscopy in 1 year for surveillance. - Telephone my office for pathology results in 1 week. - Discharge patient to home. - Resume previous diet. - Continue present medications. My findings are described in the full procedure note, which is enclosed. If I can be of further assistance, please feel free to contact me at Doctor phone number(s): Work: . Sincerely, Tom Parnell MD 10/13/2021 10:17:12 AM This report has been signed electronically.
== END 2021-10-13 11:04 | disposition home or self-care (01) ==
LOC: EN 07:59 → AC 07:59
PROVIDERS: PCP Family Medicine; Referring Provider Family Medicine; Visit Provider Surgery
PROC: 0DJD8ZZ Inspection of Lower Intestinal Tract, Via Natural or Artificial Opening Endoscopic (ICD-10-PCS; CPT 45378; principal; 2021-10-13 08:55)
DX: Z12.11 Encounter for screening for malignant neoplasm of colon (principal); E66.01 Morbid (severe) obesity due to excess calories; K57.30 Diverticulosis of large intestine without perforation or abscess without bleeding; D12.4 Benign neoplasm of descending colon; D12.2 Benign neoplasm of ascending colon; D12.3 Benign neoplasm of transverse colon; I10 Essential (primary) hypertension; K21.9 Gastro-esophageal reflux disease without esophagitis; K64.9 Unspecified hemorrhoids; F32.A Depression, unspecified; Z79.899 Other long term (current) drug therapy; Z80.0 Family history of malignant neoplasm of digestive organs; Z86.010 Personal history of colon polyps; Z68.37 Body mass index [BMI] 37.0-37.9, adult
CPT/HCPCS: 45385; 45380; 88305; J7120; J2405

== ENCOUNTER → 2022-04-16 | Outpatient (CLI) | payer MEDICARE, SELFPAY ==
--- NOTE | 2022-04-16 14:22 | RAD_ITS ---
STUDY: X-RAY - RIGHT KNEE REASON FOR EXAM: Female, 76 years old. Knee pain. TECHNIQUE: A view(s) of the knee. COMPARISON: None. FINDINGS: Normal visualized distal femur. Normal visualized proximal tibia and fibula. Normal proximal tibiofibular articulation. There is no acute fracture, dislocation or destructive osseous pathology. There is mild degenerative arthrosis of the medial femorotibial compartment. Normal lateral femorotibial compartment. There is severe degenerative arthrosis of the patellofemoral articulation. There is no demonstrated joint effusion. The soft tissue structures are unremarkable. RAD/Knee 3 Views IMPRESSION: Arthrosis of the right knee. Electronically Signed: Stevenson Herrera DO at 17:48 EST Reading Location ID and State: [id number] Tel [phone], Service support ,
--- NOTE | 2022-04-16 14:22 | RAD_ITS ---
STUDY: X-RAY - LEFT KNEE REASON FOR EXAM: Female, 76 years old. Knee pain. TECHNIQUE: 3 view(s) of the knee. COMPARISON: None. FINDINGS: Normal visualized distal femur. Normal visualized proximal tibia and fibula. Normal proximal tibiofibular articulation. There is no acute fracture, dislocation or destructive osseous pathology. There is mild degenerative arthrosis of the medial femorotibial compartment. There is mild degenerative arthrosis of the lateral femorotibial compartment. There is severe degenerative arthrosis of the patellofemoral articulation. There is no demonstrated joint effusion. The soft tissue structures are unremarkable. RAD/Knee 3 Views IMPRESSION: Arthrosis of the left knee. Electronically Signed: Stevenson Herrera DO at 17:48 EST ,
[2022-04-16 17:47] LABS: Absolute Lymphocyte Count 1.57 X10^3/uL (0.83-4.51); Absolute Neutrophil Count 4.3 X10^3/uL (2.0-7.7); Basophil# 0.04 X10^3/uL; Basophil% 0.6 % (0-1); Eosinophils% 1.5 % (0-5); Hematocrit 42.4 % (37-47); Hemoglobin 13.4 g/dL (12.0-15.0); Lymphocyte # 1.57 X10^3/ul (0.83-4.51); Lymphocyte % 23.8 % (19-41); Mean Corp Hgb Conc 31.6 g/dL (32-36); Mean Corpuscular Hgb 30.5 pg (27.0-32.0); Mean Corpuscular Volume 96.4 fL (81-99); Mean Platelet Vol. 10.7 fl (6.2-12.0); Monocyte# 0.54 X10^3/uL; Monocyte% 8.2 % (0-10); NRBC Flagged by Analyzer 0 % (0-5); Neutrophil # 4.33 X10^3/uL (2.7-7.7); Neutrophil % 65.6 % (47-70); Platelet Count 272 K/mm3 (150-450); RBC Distribution Width CV 12.6 % (11.6-14.6); RBC Distribution Width SD 45.6 fl (35.1-43.9); White Blood Count 6.6 K/mm3 (4.4-11.0)
[2022-04-16 18:12] LABS: PTHIN 115.3 pg/mL (18.4-80.1)
[2022-04-16 18:33] LABS: AST(SGOT) 19 U/L (15-37); Alanine Aminotransfer ALT/SGPT 22 U/L (13-56); Albumin, Serum 3.6 g/dL (3.2-5.0); Alkaline Phosphatase 95 U/L (45-117); Anion Gap 10 (5-15); BUN 24 mg/dL (7-18); BUN/Creat Ratio 20.9 RATIO (10-20); Calcium,Total 8.8 mg/dL (8.5-10.1); Chloride 107 mmol/L (98-107); Cholesterol 133 mg/dL (200); Creatinine, Serum 1.15 mg/dL (0.55-1.02); EST Glomerular Filtration Rate 49 mL/min (>60); Est Glom Filt Rate - Afr Amer 59 mL/min (>60); Globulin 3.7 g/dL (2.2-4.2); Glucose 103 mg/dL (74-106); High Density Lipoprotein 51 mg/dL; Potassium 4.3 mmol/L (3.5-5.1); Protein, Total 7.3 g/dL (6.4-8.2); Sodium Level 139 mmol/L (136-145); Thyroid Stim Hormone (TSH) 1.92 uIU/mL (0.358-3.74); Triglycerides 147 mg/dL; Very Low Density Lipoprotein 29 mg/dL (5-40)
[2022-04-16 18:46] LABS: Hemoglobin A1c 6.5 % (3.8-5.6)
== END | disposition home or self-care (01) ==
PROVIDERS: PCP Family Medicine; Referring Provider Family Medicine; Visit Provider Family Medicine
DX: M25.561 Pain in right knee (principal); N18.30 Chronic kidney disease, stage 3 unspecified; M25.562 Pain in left knee; I12.9 Hypertensive chronic kidney disease with stage 1 through stage 4 chronic kidney disease, or unspecified chronic kidney disease; R73.02 Impaired glucose tolerance (oral)
CPT/HCPCS: 36415; 73562; 80053; 80061; 81001; 82570; 83036; 83970; 84100; 84156; 84443; 85025

== ENCOUNTER → 2022-08-11 | Outpatient (CLI) | payer MEDICARE, SELFPAY ==
--- NOTE | 2022-08-11 14:45 | RAD_ITS ---
STUDY: X-RAY - LUMBAR SPINE REASON FOR EXAM: Female, 76 years old. Radiating low back pain TECHNIQUE: 2 view(s) of the lumbar spine were obtained. COMPARISON: None FINDINGS: There is straightening of the normal lumbar lordosis. There is a rotatory scoliosis in the thoracic and lumbar spine. There is a normal alignment of the vertebrae in the lateral view. There is multilevel endplate spondylosis of the lumbar vertebrae. There is multi-level degenerative disc disease with multi-level disc space narrowing. There is no demonstrated fracture. There is atherosclerotic calcification of the abdominal aorta without a demonstrated aneurysm. Popcorn-like calcification in the pelvis likely represents an involuted fibroid RAD/Lumbar Spine 2 or 3 Views IMPRESSION: Degenerative changes of the spine, as detailed above. Electronically Signed: Ricardo Stoddard MD at 15:08 EDT ,
[2022-08-11 17:45] LABS: Absolute Lymphocyte Count 1.76 X10^3/uL (0.83-4.51); Absolute Neutrophil Count 4.2 X10^3/uL (2.0-7.7); Basophil# 0.04 X10^3/uL; Basophil% 0.6 % (0-1); Eosinophil# 0.15 X10^3/uL; Eosinophils% 2.2 % (0-5); Hematocrit 40.6 % (37-47); Hemoglobin 12.7 g/dL (12.0-15.0); Lymphocyte # 1.76 X10^3/ul (0.83-4.51); Lymphocyte % 25.4 % (19-41); Mean Corp Hgb Conc 31.3 g/dL (32-36); Mean Corpuscular Hgb 30.2 pg (27.0-32.0); Mean Corpuscular Volume 96.4 fL (81-99); Mean Platelet Vol. 11.1 fl (6.2-12.0); Monocyte# 0.81 X10^3/uL; Monocyte% 11.7 % (0-10); NRBC Flagged by Analyzer 0 % (0-5); Neutrophil # 4.16 X10^3/uL (2.7-7.7); Neutrophil % 59.8 % (47-70); Platelet Count 277 K/mm3 (150-450); RBC Distribution Width SD 46.2 fl (35.1-43.9); Red Blood Count 4.21 M/mm3 (4.2-5.4); White Blood Count 6.9 K/mm3 (4.4-11.0)
[2022-08-11 18:59] LABS: AST(SGOT) 23 U/L (15-37); Alanine Aminotransfer ALT/SGPT 19 U/L (13-56); Albumin, Serum 3.6 g/dL (3.2-5.0); Alkaline Phosphatase 85 U/L (45-117); Anion Gap 9 (5-15); BUN 21 mg/dL (7-18); BUN/Creat Ratio 16.8 RATIO (10-20); Calcium,Total 9.7 mg/dL (8.5-10.1); Chloride 106 mmol/L (98-107); Cholesterol 122 mg/dL (200); Creatinine, Serum 1.25 mg/dL (0.55-1.02); EST Glomerular Filtration Rate 44 mL/min (>60); Est Glom Filt Rate - Afr Amer 54 mL/min (>60); Globulin 3.5 g/dL (2.2-4.2); Glucose 105 mg/dL (74-106); Hemoglobin A1c 6.4 % (3.8-5.6); High Density Lipoprotein 46 mg/dL; Phosphorus 3.9 mg/dL (2.5-4.9); Potassium 4.4 mmol/L (3.5-5.1); Protein, Total 7.1 g/dL (6.4-8.2); Sodium Level 139 mmol/L (136-145); Triglycerides 159 mg/dL; Very Low Density Lipoprotein 32 mg/dL (5-40)
[2022-08-12 08:18] LABS: PTHIN 96.9 pg/mL (18.4-80.1)
== END | disposition home or self-care (01) ==
PROVIDERS: PCP Family Medicine; Referring Provider Family Medicine; Visit Provider Family Medicine
DX: I10 Essential (primary) hypertension (principal); R73.02 Impaired glucose tolerance (oral); M47.819 Spondylosis without myelopathy or radiculopathy, site unspecified
CPT/HCPCS: 36415; 72100; 80053; 80061; 83036; 83970; 84100; 85025

== ENCOUNTER 2022-11-23 07:47 | Day surgery (SDC) | payer MEDICARE, SELFPAY ==
[2022-11-23] VITALS (7 sets, daily range): BP systolic 82–132; BP diastolic 56–71; PULSE 64–69; RESP 12–20; TEMP 36.2–36.5; O2SAT 96–100; BMI 38.5
--- NOTE | 2022-11-23 | COLBX_PTH ---
PATIENT: TING CORRIGAN LOC: EN U#:[id number] AGE/SX: 77/F ROOM: RE11/23/[address]: Dr. Tom Parnell MD : 1945 BED: DIS: 11/23/2022 SPEC #: [id number] RECD: 11/23/22 11:40 STATUS: GLORIA RECaity #: [id number] RIGO: 11/23/22 00:[address]: Tom Parnell DEPT: SURGICAL PATHOLOGY RECD BY: Lito Henriquez ENTERED: 11/23/22 11:40 SP TYPE: COLON BX OTHR DR: Dr. Garry Dillon MD Tissues: A - Descending colon B - Cecum, NOS C - Transverse colon D - Transverse colon Procedures: Surgery Specimen Level IV HEADER OPERATION: Colonoscopy (MAC) with polypectomy PRE-OP DIAGNOSIS: History of polyps, family history colon cancer TISSUE SUBMITTED: A - Descending polyp, B - Cecum polyp biopsy, C - Proximal transverse polyp biopsy, D - Distal transverse polyp biopsy MICROSCOPIC DIAGNOSIS A. Descending colon polyp, biopsy: Tubular adenoma. B. Cecal polyp, biopsy: Tubular adenoma. C. Proximal transverse colon polyp, biopsy: Tubular adenoma. D. Distal transverse colon polyp, biopsy: Hyperplastic polyp. AM:melissa 11/24/2022 MICROSCOPIC DESCRIPTION Slides are reviewed. GROSS DESCRIPTION A - Received in fixative is one container labeled with the patient's name and designated polyp descending. The specimen consists of one irregular fragment of light jones soft tissue that measures 0.3 x 0.3 x 0.1 cm. The specimen is totally submitted in one cassette. B - Received in fixative is one container labeled with the patient's name and designated cecum polyp biopsy. The specimen consists of one irregular fragment of light jones soft tissue that measures 0.3 x 0.3 x 0.1 cm. The specimen is totally submitted in one cassette. C - Received in fixative is one container labeled with the patient's name and designated proximal transverse polyp biopsy. The specimen consists of two irregular fragments of light jones soft tissue that in aggregate measure 0.6 x 0.3 x 0.1 cm. The specimen is totally submitted in one cassette. D - Received in fixative is one container labeled with the patient's name and designated distal transverse polyp biopsy. The specimen consists of multiple irregular fragments of light jones soft tissue that in aggregate measure 1.5 x 0.5 x 0.1 cm. The specimen is totally submitted in one cassette. / SJ:melissa 11/23/2022 TC:5 CPT: 00210 x4
--- NOTE | 2022-11-23 07:58 | PCM.HP.BLA ---
History and Physical Date of Admission: 11/23/22 Intake Visit Reasons:?Yearly C-Scope Chief Complaint: yearly c-scope Allergies Penicillins Allergy (Verified 10/14/22 13:25) HivesSulfa (Sulfonamide Antibiotics) Allergy (Verified 10/14/22 13:25) Hivesmorphine Adverse Reaction (Verified 10/14/22 13:25) Nausea/Vom/Diarrhea Medications diphenoxylate-atropine 2.5 mg-0.025 mg tablet (Lomotil) 1 tab PO DAILY PRN Diarrhea 10/06/20 [History Confirmed 10/14/22] losartan 100 mg tablet 100 mg PO DAILY 10/06/20 [History Confirmed 10/14/22] metoprolol succinate 100 mg tablet,extended release 24 hr 100 mg PO BID 10/06/20 [History Confirmed 10/14/22] omeprazole 20 mg capsule,delayed release 20 mg PO DAILY 10/06/20 [History Confirmed 10/14/22] sertraline 100 mg tablet 100 mg PO DAILY 10/06/20 [History Confirmed 10/14/22] vit C 250 mg-vit E 90 mg-zinc 40 mg-copper 1 la-okcues-pmlipt capsule (PreserVision AREDS-2) 1 tab PO DAILY 10/30/20 [History Confirmed 10/14/22] ergocalciferol (vitamin D2) 1,250 mcg (50,000 unit) capsule 50,000 unit PO MO 10/05/21 [History Confirmed 10/14/22] gabapentin 100 mg capsule 100 mg PO DAILY 10/05/21 [History Confirmed 10/14/22] PFSH Medical History?(Updated 10/09/21 @ 13:29 by Megan Evangelista) Abdominal pain Arthritis Back pain Cancer Complete edentulism, class III Depression Diarrhea Gastric reflux GERD (gastroesophageal reflux disease) History of edema History of irregular heartbeat History of pain when walking History of renal disease History of stress test HTN (hypertension) Hx of echocardiogram Macular degeneration Migraine headache Non-smoker Restless legs Wears glasses Surgical History?(Updated 10/09/21 @ 13:29 by Megan Evangelista) History of colonoscopy (~2020) S/P carpal tunnel release S/P laparoscopic cholecystectomy S/P shoulder replacement S/P tonsillectomy Family History? Father Colon cancerGrandmother CVA (cerebral vascular accident)Grandfather CVA (cerebral vascular accident)Mother Heart disease Social History? Smoking Status:? Never smoker alcohol intake:? current alcohol intake frequency: holidays/special occasions only HPI HPI HPI: 77-year-old female presents today to discuss a surveillance colonoscopy.? Her most recent procedure was performed by myself on October 13, 2021.? She has a personal history of colon polyps.? At that setting a 6 mm polyp was seen in the proximal ascending colon removed with hot snare.? A 25 mm polyp was found at the hepatic flexure.? This was sessile.? Combination of hot snare and cold forcep biopsy was attempted to remove the entire polyp.? At the completion a hemostatic clip was placed.? Additionally there were 2 sessile polyps seen in the proximal descending colon.? Those were removed with hot snare.? She has extensive diverticular disease of the sigmoid and descending colon as well. Presents with her daughter today.? The patient actually has had several falls.? She supposed to be using a walker but does not do that.? Mostly lives a sedentary lifestyle.? No current complaints of abdominal pain black stools or blood in her stools. ROS General General: Yes fatigue; No weight change, appetite, colon cancer, breast cancer or weakness HEENT HEENT: No difficulty swallowing, eye injury, eye surgery, swollen glands or hoarseness Endo Endocrine: No thyroid disease, diabetes mellitus, thyroid cancer, Hair loss, heat intolerance or cold intolerance Skin Skin: No rash or changing moles Musc Musculoskeletal: Yes back problems and arthritis; No rheumatoid arthritis, gout or joint pain Cardio Cardiovascular: Yes murmur and high blood pressure; No pacemaker, heart disease, atrial fibrillation, heart attack, heart stent, palpitations, shortness of breat with exertion or chest pain Psych Psychiatric: Yes depression and anxiety; No hearing voices Resp Respiratory: No shortness of breath, No sleep apnea, No cough, No COPD, No asthma, No emphysema and No wheezing Gastro Gastrointestinal: No abdominal pain, No nausea or vomiting, Yes diarrhea, Yes constipation, Yes blood in stool, Yes acid reflux, Yes hemorrhoids, No ulcers, No gallbladder problem and No black,tarry stools Matthias Hematologic: No blood thinners, No blood disorders, No bleeding, No anemia and No blood clots Neuro Neurologic: No system reviewed and no additional complaints, except as documented, No as per HPI, No abnormal gait, No abnormal hearing, No abnormal movements, No abnormal speech, No behavioral changes, No burning sensations, No confusion, No convulsions, No disequilibrium, No dizziness, No localized weakness, No frequent falls, No headache(s), No lack of coordination, No loss of vision, No memory loss, Yes numbness, No other visual disturbances, No radicular pain, No restless legs, No sensory deficit, No syncope, Yes tingling, No tremor(s), No weakness and No other Exam Const General: cooperative and comfortable Nutritional Appearance: obese morbidly obese [facility] Head: normal to inspection Neck Neck: normal visual inspection Resp Effort & Inspection: normal respiratory effort Auscultation: clear to auscultation bilaterally Cardio Rate: regular rate Rhythm: regular rhythm GI Palpation: soft and no hepatosplenomegaly Other: Patient has a large abdomen, I am not able to detect any internal organs, no focal tenderness Musc Cervical Spine: normal cervical lordosis Neuro General: patient alert, patient awake and patient oriented x3 Extrem General: no calf tenderness Assessment and Plan Assessment and Plan (1) Family history of colon cancer in father: ?Status:?Acute ?Plan: 77-year-old female who is felt to be at higher risk due to the number of colon polyps she had and the size and location at the hepatic flexure of the previous polyp.? She presents now for surveillance to assure clearance.? She has had an opportunity to ask and have questions answered.? We will schedule procedure at her discretion. Regarding the patient's falls at home I would concur with the patient's daughter that the patient should be using a support device as needed.? I have cautioned her that falls place her at significant risk.? She is had an opportunity to ask and have questions answered and seems to understand. I appreciate the ongoing opportunity of assisting with her surgical care Copy: Dr Garry Parnell M.D., F.A.C.S I have examined the patient and the H&P has been reviewed. There are no clinical changes since date of exam. Tom Parnell M.D., F.A.C.S.
[2022-11-23] MEDS: Lactated Ringers 1,000 ML 15 ML IV (08:15)
--- NOTE | 2022-11-23 09:09 | OP.COLON_ITS ---
Patient Name: Sirena Crain Procedure Date: 11/23/2022 8:32 AM Date of : 1945 Age: 77 Procedure: Colonoscopy Indications: High risk colon cancer surveillance: Personal history of colonic polyps Providers: Tom Parnell MD Referring MD: Tom Parnell MD Medicines: See the Anesthesia note for documentation of the administered medications Patient Profile: Last Colonoscopy: 1 year ago. Complications: No immediate complications. Procedure: Pre-Anesthesia Assessment: - Prior to the procedure, a History and Physical was performed, and patient medications and allergies were reviewed. The patient's tolerance of previous anesthesia was also reviewed. The risks and benefits of the procedure and the sedation options and risks were discussed with the patient. All questions were answered, and informed consent was obtained. Prior Anticoagulants: The patient has taken no previous anticoagulant or antiplatelet agents. ASA Grade Assessment: III - A patient with severe systemic disease. After reviewing the risks and benefits, the patient was deemed in satisfactory condition to undergo the procedure. After I obtained informed consent, the scope was passed under direct vision. Throughout the procedure, the patient's blood pressure, pulse, and oxygen saturations were monitored continuously. The colonoscope was introduced through the anus and advanced to the cecum, identified by appendiceal orifice and ileocecal valve. The colonoscopy was performed with moderate difficulty due to the patient's body habitus. The patient tolerated the procedure well. The quality of the bowel preparation was good. The ileocecal valve was photographed. Scope In: 8:40:39 AM Scope Withdrawal Time 0 hours 9 minutes 59 seconds Scope Out: 9:03:21 AM Total Procedure Duration Time 0 hours 22 minutes 42 seconds Findings: The digital rectal exam findings include non-thrombosed internal hemorrhoids and internal hemorrhoids that prolapse with straining, but require manual replacement into the anal canal (Grade III). A 4 mm polyp was found in the cecum. The polyp was sessile. The polyp was removed with a cold biopsy forceps. Resection and retrieval were complete. A 5 mm polyp was found in the proximal transverse colon. The polyp was sessile. The polyp was removed with a cold biopsy forceps. Resection and retrieval were complete. A 6 mm polyp was found in the distal transverse colon. The polyp was sessile. The polyp was removed with a cold biopsy forceps. Resection and retrieval were complete. A 8 mm polyp was found in the mid descending colon. The polyp was sessile. The polyp was removed with a hot snare. Resection and retrieval were complete. Multiple diverticula were found in the sigmoid colon and descending colon. Impression: - Non-thrombosed internal hemorrhoids and internal hemorrhoids that prolapse with straining, but require manual replacement into the anal canal (Grade III) found on digital rectal exam. - One 4 mm polyp in the cecum, removed with a cold biopsy forceps. Resected and retrieved. - One 5 mm polyp in the proximal transverse colon, removed with a cold biopsy forceps. Resected and retrieved. - One 6 mm polyp in the distal transverse colon, removed with a cold biopsy forceps. Resected and retrieved. - One 8 mm polyp in the mid descending colon, removed with a hot snare. Resected and retrieved. - Diverticulosis in the sigmoid colon and in the descending colon. Recommendation: - Discharge patient to home. - Resume previous diet. - Continue present medications. - Repeat colonoscopy in 3 years for surveillance based on pathology results. - Telephone my office for pathology results in 1 week. Procedure Code(s): --- Professional --- 23010, Colonoscopy, flexible; with removal of tumor(s), polyp(s), or other lesion(s) by snare technique 66761, 59, Colonoscopy, flexible; with biopsy, single or multiple Diagnosis Code(s): --- Professional --- Z86.010, Personal history of colonic polyps K64.2, Third degree hemorrhoids D12.0, Benign neoplasm of cecum D12.3, Benign neoplasm of transverse colon (hepatic flexure or splenic flexure) D12.4, Benign neoplasm of descending colon K57.30, Diverticulosis of large intestine without perforation or abscess without bleeding CPT copyright 2017 [employer]. All rights reserved. The codes documented in this report are preliminary and upon reception centre manager review may be revised to meet current compliance requirements. Tom Parnell MD 11/23/2022 9:09:12 AM This report has been signed electronically. Number of Addenda: 0 Note Initiated On: 11/23/2022 8:32 AM
--- NOTE | 2022-11-23 09:10 | OP.CCLET_ITS ---
11/23/2022 Garry Dillon [address] [place] [address] Re : Colonoscopy procedure for Sirena Crain Dear Dr. Dillon This procedure was performed on Wednesday, November 23, 2022. My impressions and recommendations are as follows: Impressions : - Non-thrombosed internal hemorrhoids and internal hemorrhoids that prolapse with straining, but require manual replacement into the anal canal (Grade III) found on digital rectal exam. - One 4 mm polyp in the cecum, removed with a cold biopsy forceps. Resected and retrieved. - One 5 mm polyp in the proximal transverse colon, removed with a cold biopsy forceps. Resected and retrieved. - One 6 mm polyp in the distal transverse colon, removed with a cold biopsy forceps. Resected and retrieved. - One 8 mm polyp in the mid descending colon, removed with a hot snare. Resected and retrieved. - Diverticulosis in the sigmoid colon and in the descending colon. Recommendations : - Discharge patient to home. - Resume previous diet. - Continue present medications. - Repeat colonoscopy in 3 years for surveillance based on pathology results. - Telephone my office for pathology results in 1 week. My findings are described in the full procedure note, which is enclosed. If I can be of further assistance, please feel free to contact me at Doctor phone number(s): Work: . Sincerely, Tom Parnell MD 11/23/2022 9:09:12 AM This report has been signed electronically.
== END 2022-11-23 10:05 | disposition home or self-care (01) ==
LOC: EN 07:48 → AC 07:49
PROVIDERS: PCP Family Medicine; Referring Provider Family Medicine; Visit Provider Surgery
PROC: 0DJD8ZZ Inspection of Lower Intestinal Tract, Via Natural or Artificial Opening Endoscopic (ICD-10-PCS; CPT 45378; principal; 2022-11-23 08:55)
DX: Z12.11 Encounter for screening for malignant neoplasm of colon (principal); K64.2 Third degree hemorrhoids; D12.0 Benign neoplasm of cecum; D12.3 Benign neoplasm of transverse colon; D12.4 Benign neoplasm of descending colon; K57.30 Diverticulosis of large intestine without perforation or abscess without bleeding; K21.9 Gastro-esophageal reflux disease without esophagitis; I10 Essential (primary) hypertension; F32.A Depression, unspecified; R29.6 Repeated falls; Z90.49 Acquired absence of other specified parts of digestive tract; Z79.899 Other long term (current) drug therapy; Z86.010 Personal history of colon polyps; Z80.0 Family history of malignant neoplasm of digestive organs
CPT/HCPCS: 45380; 45385; 88305; J7120

== ENCOUNTER → 2022-12-08 | Outpatient (CLI) | payer MEDICARE, SELFPAY ==
[2022-12-08 17:55] LABS: Absolute Lymphocyte Count 1.68 X10^3/uL (0.83-4.51); Absolute Neutrophil Count 3.9 X10^3/uL (2.0-7.7); Basophil# 0.05 X10^3/uL; Basophil% 0.8 % (0-1); Eosinophil# 0.17 X10^3/uL; Eosinophils% 2.6 % (0-5); Hematocrit 40.6 % (37-47); Hemoglobin 12.4 g/dL (12.0-15.0); Lymphocyte # 1.68 X10^3/ul (0.83-4.51); Lymphocyte % 25.7 % (19-41); Mean Corp Hgb Conc 30.5 g/dL (32-36); Mean Corpuscular Hgb 29.2 pg (27.0-32.0); Mean Corpuscular Volume 95.5 fL (81-99); Mean Platelet Vol. 10.8 fl (6.2-12.0); Monocyte# 0.67 X10^3/uL; Monocyte% 10.3 % (0-10); NRBC Flagged by Analyzer 0 % (0-5); Neutrophil # 3.92 X10^3/uL (2.7-7.7); Platelet Count 270 K/mm3 (150-450); RBC Distribution Width CV 12.6 % (11.6-14.6); RBC Distribution Width SD 44.1 fl (35.1-43.9); Red Blood Count 4.25 M/mm3 (4.2-5.4); White Blood Count 6.5 K/mm3 (4.4-11.0)
[2022-12-08 18:07] LABS: Vitamin D,25 Hydroxy 92.2 ng/mL
[2022-12-08 18:11] LABS: Hemoglobin A1c 6.5 % (3.8-5.6)
[2022-12-08 18:20] LABS: ALB/GLOB Ratio 0.9 RATIO (0.9-2.4); AST(SGOT) 19 U/L (15-37); Alanine Aminotransfer ALT/SGPT 17 U/L (13-56); Albumin, Serum 3.5 g/dL (3.2-5.0); Alkaline Phosphatase 101 U/L (45-117); Anion Gap 6 (5-15); BUN 23 mg/dL (7-18); BUN/Creat Ratio 17.2 RATIO (10-20); Calcium,Total 9.3 mg/dL (8.5-10.1); Chloride 108 mmol/L (98-107); Cholesterol 122 mg/dL (200); Creatinine, Serum 1.34 mg/dL (0.55-1.02); EST Glomerular Filtration Rate 41 mL/min (>60); Est Glom Filt Rate - Afr Amer 49 mL/min (>60); Globulin 3.7 g/dL (2.2-4.2); Glucose 112 mg/dL (74-106); High Density Lipoprotein 47 mg/dL; Potassium 4.3 mmol/L (3.5-5.1); Protein, Total 7.2 g/dL (6.4-8.2); Sodium Level 139 mmol/L (136-145); Triglycerides 166 mg/dL; Very Low Density Lipoprotein 33 mg/dL (5-40)
== END | disposition home or self-care (01) ==
LOC: MFPLAB 14:18
PROVIDERS: PCP Family Medicine; Visit Provider Family Medicine
DX: E55.9 Vitamin D deficiency, unspecified (principal); I10 Essential (primary) hypertension; R73.02 Impaired glucose tolerance (oral)
CPT/HCPCS: 36415; 80053; 80061; 82306; 83036; 85025

== ENCOUNTER 2023-01-17 12:54 | Outpatient (RCR) | payer MEDICARE, SELFPAY ==
--- NOTE | 2023-01-17 14:17 | HP.PTEVAL_ITS ---
Patient's Visit Information Visit Information Visit Information: TING CORRIGAN is a 77 year old F referred to Physical Therapy by Dr. Oneal Muller MD with a diagnosis of BACK PAIN AND LEG PAIN. Date of Evaluation: 01/17/23 Physical Therapist: Jonel Dior PT, Cert MDT, OCS Visit Plan Frequency: 2x /Week Duration: 3 Weeks Plan: PT INTERVETIONS DLS ,POSTURAL EX'S LE FLEXABLITY ,STRENGTHENING AND MODALTIES Subjective Subjective: This 77 y/o female presents to physical therapy with back and leg pain. This patient has had lumbar pain for many years. Patient was referred to Dr Muller and had injection epidural last Tues helped for 3 days. No medication. No diagnostics. Patient has not received PT in past. Location of pain Right > Left lumbar. Aggravating walking /standing affects ADL's . Alleviating factors rest seated. C/O paresthesia/tingling in feet. Coughing/sneezing-. Patient patient sleeping good. Patient has no trauma but today had mechanical fall landed on knees. Patient does have mechanical fall due to shuffling feet. Patient pain affects QOL and function . Patient goals affects to decrease pain. SOCAIL: lives with famliy VOCATION: retired Pain Bilateral Back: Pain Intensity (Out of 10): 7 Pain Intensity Range: N/A Comment: walking as well as knees Objective Objective: POSTURE: mild forward posture hips/knees slightly flexed GAIT: reciprocal pattern slow cory decrease hip/knee flexion PALAPTION: LS tender SYMMTRIES: align LUMBAR ROM: flexion mod loss ,extension mod less ,side glides mod loss FLEXABLITY: hamstrings min tight MMT: ( peak force)m quads L 19.9 , R 20 .7 ,hamstrings L 15 ,.6 ,R 17.6 ,hip flexion R 12.8 ,L 10.7 Special Tests L/S Slump test left side: Negative L/S Slump test right side: Negative L/S Left Straight Leg Raise: Negative L/S Right Straight Leg Raise: Negative Lumbar Standing: Flexion - Mechanical Response: No effect Lumbar Standing: Flexion - Symptoms During Testing: No effect Lumbar Standing: Flexion - Symptoms After Testing: No worse Lumbar Standing: Extension - Mechanical Response: No effect Lumbar Standing: Extension - Symptoms During Testing: Increases Lumbar Standing: Extension - Symptoms After Testing: No worse Lumbar Standing: Right Side Glides - Mechanical Response: No effect Lumbar Standing: Right Side Savage - Symptoms During Testing: No effect Lumbar Standing: Right Side Savage - Symptoms After Testing: No effect Lumbar Standing: Left Side Savage - Mechanical Response: No effect Lumbar Standing: Left Side Savage - Symptoms During Testing: No effect Lumbar Standing: Left Side Savage - Symptoms After Testing: No effect Balance/Special Test Scores Oswestry Low Back Score: 35 Goals Goal 1:: Patient to be I with HEP Goal Time Frame: 4-6 Weeks Goal 2:: Patient to improve lumbar ROM for function of recovery to put on shoes Goal Time Frame: 4-6 Weeks Goal 3:: Patient to improve peak force quads/hams/hip by 5-10 # janet improve gaut Goal Time Frame: 4-6 Weeks Goal 4:: Patient to demonstrate 40% -50% improvement with less pain and improve gait Goal Time Frame: 4-6 Weeks Goal 5:: Patient to improve back oswestry score by 5 points or> TO IMPROVE GAIT Goal Time Frame: 4-6 Weeks Rehabilitation Potential Physical Therapy Diagnosis: Patient has lumbar pain possible from disc issue stenosis with weakness ,decrease ROM ,pain with motion testing and positioning thus benefit from skilled PT Rehabilitation Potential: Good Anticipated Interventions Patient/Client Instruction: Educate patient on: Condition and Plan of Care For the Purpose of:: To decrease pain, To increase ROM, To improve muscle performance and motor function, To improve ability to perform ADL's, To increase tolerance to activity/condition/position, To improve ability of physical actions for home/community/work/leisure, To improve health of tissue, To decrease soft tissue restriction, To increase flexibility/ROM and To improve tolerance to ADL's Text: Thank you for the opportunity to evaluate your patient. For Medicare and Medicare HMO plans, please review the plan of care and approve it. It will need to be FAXED BACK to us at [phone] for Medicare purposes. For Medicare only, by signing this I certify the plan of care. Please let me know if there are questions or concerns regarding this plan of care. Physician Signature: Date:
== END 2023-01-17 19:00 | disposition home or self-care (01) ==
LOC: PT 12:54
PROVIDERS: PCP Family Medicine; Referring Provider Anesthesiology Pain Medicine; Visit Provider Anesthesiology Pain Medicine
DX: M54.9 Dorsalgia, unspecified (principal); M79.606 Pain in leg, unspecified
CPT/HCPCS: 97110; 97162

== ENCOUNTER → 2023-06-14 | Outpatient (CLI) | payer MEDICARE, SELFPAY ==
[2023-06-14 17:31] LABS: Absolute Lymphocyte Count 1.86 X10^3/uL (0.83-4.51); Absolute Neutrophil Count 3.1 X10^3/uL (2.0-7.7); Basophil# 0.05 X10^3/uL; Basophil% 0.9 % (0-1); Eosinophil# 0.13 X10^3/uL; Eosinophils% 2.2 % (0-5); Hemoglobin 12.6 g/dL (12.0-15.0); Lymphocyte # 1.86 X10^3/ul (0.83-4.51); Lymphocyte % 32.2 % (19-41); Mean Corp Hgb Conc 31.5 g/dL (32-36); Mean Corpuscular Volume 95.2 fL (81-99); Mean Platelet Vol. 10.4 fl (6.2-12.0); Monocyte# 0.66 X10^3/uL; Monocyte% 11.4 % (0-10); NRBC Flagged by Analyzer 0 % (0-5); Neutrophil # 3.05 X10^3/uL (2.7-7.7); Neutrophil % 52.8 % (47-70); Platelet Count 265 K/mm3 (150-450); RBC Distribution Width SD 45.1 fl (35.1-43.9); White Blood Count 5.8 K/mm3 (4.4-11.0)
--- OUTSIDE RECORDS SUMMARY | 2023-06-14 17:43 | XMS RPT_ITS | CCD ---
Author Name Unknown Address [facility] [address] [place] [address] Organization [facility] Clinical Note 12-30-2021 Note Date & Type Note Facility 12-30-2021 Note Patient Outreach (CRISTIANO PITT) TING CORRIGAN ([id number]) 1945 F Date Time Provider Department 12/30/21 BOGDAN VIDES During your visit today, we recorded the following information about you: Lillie Kent LPN 01/07/2022 2:35 PM Signed Care Gap Reviewed: Follow-up appointment Phone call placed to patient. Pt identified by name and : YES, via phone Outreach Outcome/Action: Spoke to patient or caregiver: Patient declined If patient deferred or declined to schedule appointment, please indicate the reason(s): Other Patient is receiving care at Dr Echevarria office in [place]. Lillie Kent LPN Allergies As of Date: 12/30/2021 Noted Allergy Reaction CHLORTHALIDONE 09/28/2007 5 - Intolerance Comments: difficulty breathing and dizzy CODEINE 01/28/2005 Comments: VOMITING DOXYCYCLINE 08/17/2011 8 - GI Upset PENICILLINS 01/28/2005 10 - Anaphylaxis SULFA (SULFONAMIDE ANTIBIOTICS) 01/28/2005 5 - Intolerance Comments: Childhood, reaction uncertain VOLTAREN (DICLOFENAC SODIUM) 01/28/2005 16 - Unknown Date Reviewed: 04/02/2020 Reviewed by: Sherly Santiago Ma - Fully Assessed Reason for Visit: appointment [Other] Cmt: Hypertension lab work Prescriptions as of 01/07/2022 - metoprolol tartrate, short acting, (LOPRESSOR) 100 mg tablet Take 1 tablet by mouth twice daily. - losartan (COZAAR) 100 mg tablet Take 1 tablet by mouth once daily. - diphenoxylate-atropine (LOMOTIL) 2.5-0.025 mg per tablet Take 1 tablet by mouth four times daily as needed for Diarrhea for up to 30 days. - mirtazapine (REMERON) 15 mg tablet Take 1 tablet by mouth daily at bedtime. - sertraline (ZOLOFT) 50 mg tablet TAKE 1 TABLET EVERY DAY - diphenoxylate-atropine (LOMOTIL) 2.5-0.025 mg per tablet Take 1 tablet by mouth four times daily for 90 days. - clotrimazole-betamethasone (LOTRISONE) cream Apply 1 application to affected area twice daily. - VIT C/VIT E AC/LUT/COPPER/ZINC (PRESERVISION LUTEIN ORAL) Take by mouth. - Acidophilus-Bif Animalis (DIGESTIVE PROBIOTIC) 10 billion cell cap daily - omeprazole (PRILOSEC) 20 mg capsule Take 1 capsule by mouth daily before breakfast. 1/2 hr before meal. Problem List As Of Date 12/30/2021 Noted Resolved Essential hypertension, benign [I10] 03/25/2005 Headache [R51] 03/25/2005 03/31/2020 Myalgia and myositis, unspecified [RQA2714] 03/25/2005 03/31/2020 Osteoarthrosis, unspecified whether generalized*03/25/2005 Anxiety disorder [F41.9] 03/25/2005 Chronic depression [F32.A] 03/25/2005 Irritable Bowel Syndrome [K58.9] 03/25/2005 Unspecified gastritis and gastroduodenitis with*03/08/2006 03/31/2020 Macular Degeneration (Senile) of Retina, Unspec*09/06/2006 Routine gynecological examination [Z01.419] 12/26/2008 05/16/2019 Class: Chronic Personal History of Allergy to Penicillin [Z88.*12/26/2008 Esophageal Reflux [K21.9] 12/26/2008 Mixed Hyperlipidemia [E78.2] 12/26/2008 Rapid palpitations [R00.2] 02/09/2010 03/31/2020 Adjustment disorder with depressed mood [F43.21] 03/31/2020 HTN (hypertension) [I10] 03/31/2020 Generalized osteoarthrosis, unspecified site [M* Shoulder arthritis [M19.019] 08/31/2010 Shoulder pain [M25.519] 09/14/2010 Special screening for malignant neoplasms, colo*04/13/2011 03/31/2020 Osteoarthritis, 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] 12/04/2012 03/31/2020 Irritated//Inflamed Seborrheic Keratoses [L82.0]02/28/2013 Viral warts, unspecified [B07.9] 02/28/2013 Other seborrheic keratosis [L82.1] 02/28/2013 Solar Lentigines [L81.4] 02/28/2013 Actinic skin damage [L57.8] 02/28/2013 Xerosis cutis [L85.3] 02/28/2013 Monilial intertrigo [B37.2] 04/18/2013 Eczema intertrigo [L30.4] 04/18/2013 Postinflammatory skin changes [R23.8] 04/18/2013 Vertigo, intermittent [R42] 08/23/2013 Chronic daily headache [R51.9] 09/27/2013 Medication overuse headache [G44.40] 09/27/2013 02/27/2014 Chronic migraine without aura, with intractable*09/27/2013 Chronic tension type headache [G44.229] 09/27/2013 Migraine without aura [G43.009] 02/27/2014 03/31/2020 Chronic renal insufficiency, stage 3 (moderate)*05/16/2019 Hypertensive kidney disease with stage 3 chroni*03/31/2020 Encounter Status:Closed by LILLIE KENT on 01/07/22 [facility] Progress note 12-30-2021 Note Date & Type Note Facility 12-30-2021 Note HNO ID: [id number] Author: Lillie Kent LPN Service: ? Author Type: LICENSED NURSE Type: Progress Notes Filed: 01/07/2022 2:35 PM Note Text: Care Gap Reviewed: Follow-up appointment Phone call placed to patient. Pt identified by name and : YES, via phone Outreach Outcome/Action: Spoke to patient or caregiver: Patient declined If patient deferred or declined to schedule appointment, please indicate the reason(s): Other Patient is receiving care at Dr Echevarria office in [place]. Lillie Kent LPN [facility] Summary Purpose Family History No Family History Records Found Advance Directives No Advanced Directives Records Found Additional Source Comments INFORMATION SOURCE (unrecogn ized section and content) FOR RECORDS PERTAINING TO PATIENTS WHO ARE OR HAVE BEEN ENROLLED IN A CHEMICAL DEPENDENCY/SUBSTANCEABUSE PROGRAM, SOME INFORMATION MAY BE OMITTED. This clinical summary was aggregated from multiple sources. Caution should be exercised in using it in the provision of clinical care. This summary normalizes information from multiple sources, and as a consequence, information in this document may materially change the coding, format and clinical context of patient data. In addition, data may be omitted in some cases. CLINICAL DECISIONS SHOULD BE BASED ON THE PRIMARY CLINICAL RECORDS. [employer] provides no warranty or guarantee of the accuracy or completeness of information in this document.
[2023-06-14 17:54] LABS: Vitamin D,25 Hydroxy 97.9 ng/mL
[2023-06-14 17:57] LABS: Hemoglobin A1c 6.2 % (3.8-5.6)
[2023-06-14 18:07] LABS: AST(SGOT) 24 U/L (15-37); Alanine Aminotransfer ALT/SGPT 15 U/L (13-56); Albumin, Serum 3.6 g/dL (3.2-5.0); Alkaline Phosphatase 92 U/L (45-117); Anion Gap 5 (5-15); BUN 21 mg/dL (7-18); BUN/Creat Ratio 15.7 RATIO (10-20); Calcium,Total 9.3 mg/dL (8.5-10.1); Chloride 109 mmol/L (98-107); Cholesterol 132 mg/dL (200); Creatinine, Serum 1.34 mg/dL (0.55-1.02); EST Glomerular Filtration Rate 41 mL/min (>60); Est Glom Filt Rate - Afr Amer 49 mL/min (>60); Globulin 3.6 g/dL (2.2-4.2); Glucose 112 mg/dL (74-106); High Density Lipoprotein 48 mg/dL; Magnesium 2.4 mg/dL (1.6-2.6); Phosphorus 3.3 mg/dL (2.5-4.9); Potassium 4.7 mmol/L (3.5-5.1); Protein, Total 7.2 g/dL (6.4-8.2); Sodium Level 141 mmol/L (136-145); Thyroid Stim Hormone (TSH) 2.17 uIU/mL (0.358-3.74); Triglycerides 149 mg/dL; Very Low Density Lipoprotein 30 mg/dL (5-40)
[2023-06-15 08:43] LABS: PTHIN 115.8 pg/mL (18.4-80.1)
== END | disposition home or self-care (01) ==
LOC: MFPLAB 16:10
PROVIDERS: PCP Family Medicine; Visit Provider Family Medicine
DX: E11.59 Type 2 diabetes mellitus with other circulatory complications (principal); E11.22 Type 2 diabetes mellitus with diabetic chronic kidney disease; N18.9 Chronic kidney disease, unspecified
CPT/HCPCS: 36415; 80053; 80061; 82306; 83036; 83735; 83970; 84100; 84443; 85025

== ENCOUNTER → 2023-10-11 | Outpatient (CLI) | payer MEDICARE, SELFPAY ==
[2023-10-11 16:28] LABS: Absolute Lymphocyte Count 1.58 X10^3/uL (0.83-4.51); Absolute Neutrophil Count 3.9 X10^3/uL (2.0-7.7); Basophil# 0.04 X10^3/uL; Basophil% 0.6 % (0-1); Eosinophil# 0.16 X10^3/uL; Eosinophils% 2.5 % (0-5); Hematocrit 39.7 % (37-47); Hemoglobin 12.4 g/dL (12.0-15.0); Lymphocyte # 1.58 X10^3/ul (0.83-4.51); Mean Corp Hgb Conc 31.2 g/dL (32-36); Mean Corpuscular Hgb 29.5 pg (27.0-32.0); Mean Corpuscular Volume 94.5 fL (81-99); Mean Platelet Vol. 10.5 fl (6.2-12.0); Monocyte# 0.61 X10^3/uL; Monocyte% 9.7 % (0-10); NRBC Flagged by Analyzer 0 % (0-5); Neutrophil # 3.86 X10^3/uL (2.7-7.7); Neutrophil % 61.1 % (47-70); Platelet Count 257 K/mm3 (150-450); RBC Distribution Width CV 12.8 % (11.6-14.6); RBC Distribution Width SD 44.2 fl (35.1-43.9); White Blood Count 6.3 K/mm3 (4.4-11.0)
[2023-10-11 16:51] LABS: Vitamin D,25 Hydroxy 107.7 ng/mL
[2023-10-11 16:58] LABS: AST(SGOT) 19 U/L (15-37); Alanine Aminotransfer ALT/SGPT 18 U/L (13-56); Albumin, Serum 3.6 g/dL (3.2-5.0); Alkaline Phosphatase 95 U/L (45-117); Anion Gap 6 (5-15); BUN 24 mg/dL (7-18); BUN/Creat Ratio 19.8 RATIO (10-20); Calcium,Total 9.2 mg/dL (8.5-10.1); Chloride 109 mmol/L (98-107); Cholesterol 130 mg/dL (200); Creatinine, Serum 1.21 mg/dL (0.55-1.02); EST Glomerular Filtration Rate 46 mL/min (>60); Est Glom Filt Rate - Afr Amer 55 mL/min (>60); Globulin 3.7 g/dL (2.2-4.2); Glucose 108 mg/dL (74-106); High Density Lipoprotein 49 mg/dL; Potassium 4.5 mmol/L (3.5-5.1); Protein, Total 7.3 g/dL (6.4-8.2); Sodium Level 140 mmol/L (136-145); Triglycerides 114 mg/dL; Very Low Density Lipoprotein 23 mg/dL (5-40)
== END | disposition home or self-care (01) ==
LOC: MFPLAB 14:26
PROVIDERS: PCP Family Medicine; Visit Provider Family Medicine
DX: E11.59 Type 2 diabetes mellitus with other circulatory complications (principal); E11.22 Type 2 diabetes mellitus with diabetic chronic kidney disease; N18.9 Chronic kidney disease, unspecified; E55.9 Vitamin D deficiency, unspecified
CPT/HCPCS: 36415; 80053; 80061; 82306; 84100; 85025

== ENCOUNTER → 2024-02-07 | Outpatient (CLI) | payer MEDICARE, SELFPAY ==
[2024-02-07 17:30] LABS: Absolute Lymphocyte Count 1.82 X10^3/uL (0.83-4.51); Absolute Neutrophil Count 3.7 X10^3/uL (2.0-7.7); Basophil# 0.03 X10^3/uL; Basophil% 0.5 % (0-1); Eosinophil# 0.18 X10^3/uL; Eosinophils% 2.8 % (0-5); Hematocrit 40.9 % (37-47); Hemoglobin 12.3 g/dL (12.0-15.0); Lymphocyte # 1.82 X10^3/ul (0.83-4.51); Lymphocyte % 28.3 % (19-41); Mean Corp Hgb Conc 30.1 g/dL (32-36); Mean Corpuscular Hgb 28.8 pg (27.0-32.0); Mean Corpuscular Volume 95.8 fL (81-99); Mean Platelet Vol. 10.7 fl (6.2-12.0); Monocyte# 0.67 X10^3/uL; Monocyte% 10.4 % (0-10); NRBC Flagged by Analyzer 0 % (0-5); Neutrophil # 3.71 X10^3/uL (2.7-7.7); Neutrophil % 57.7 % (47-70); Platelet Count 266 K/mm3 (150-450); RBC Distribution Width CV 12.7 % (11.6-14.6); RBC Distribution Width SD 44.9 fl (35.1-43.9); Red Blood Count 4.27 M/mm3 (4.2-5.4); White Blood Count 6.4 K/mm3 (4.4-11.0)
[2024-02-07 18:11] LABS: Vitamin D,25 Hydroxy 57.3 ng/mL
[2024-02-07 18:15] LABS: AST(SGOT) 13 U/L (15-37); Alanine Aminotransfer ALT/SGPT 17 U/L (13-56); Albumin, Serum 3.7 g/dL (3.2-5.0); Alkaline Phosphatase 95 U/L (45-117); Anion Gap 6 (5-15); BUN 22 mg/dL (7-18); BUN/Creat Ratio 15.9 RATIO (10-20); Calcium,Total 9.4 mg/dL (8.5-10.1); Chloride 106 mmol/L (98-107); Cholesterol 133 mg/dL (200); Creatinine, Serum 1.38 mg/dL (0.55-1.02); EST Glomerular Filtration Rate 39 mL/min (>60); Est Glom Filt Rate - Afr Amer 48 mL/min (>60); Globulin 3.7 g/dL (2.2-4.2); Glucose 106 mg/dL (74-106); High Density Lipoprotein 50 mg/dL; Potassium 4.3 mmol/L (3.5-5.1); Protein, Total 7.4 g/dL (6.4-8.2); Sodium Level 137 mmol/L (136-145); Triglycerides 175 mg/dL; Very Low Density Lipoprotein 35 mg/dL (5-40)
[2024-02-07 18:35] LABS: PTHIN 122.6 pg/mL (18.4-80.1)
[2024-02-07 18:42] LABS: Hemoglobin A1c 6.3 % (3.8-5.6)
== END | disposition home or self-care (01) ==
LOC: MFPLAB 14:10
PROVIDERS: PCP Family Medicine; Visit Provider Family Medicine
DX: E55.9 Vitamin D deficiency, unspecified (principal); E11.59 Type 2 diabetes mellitus with other circulatory complications
CPT/HCPCS: 36415; 80053; 80061; 82306; 83036; 83970; 85025

== ENCOUNTER → 2024-08-21 | Outpatient (CLI) | payer MEDICARE, SELFPAY ==
[2024-08-21 17:45] LABS: Absolute Lymphocyte Count 1.76 X10^3/uL (0.83-4.51); Absolute Neutrophil Count 3.7 X10^3/uL (2.0-7.7); Basophil# 0.04 X10^3/uL; Basophil% 0.6 % (0-1); Eosinophil# 0.12 X10^3/uL; Eosinophils% 1.9 % (0-5); Hematocrit 39.6 % (37-47); Hemoglobin 12.6 g/dL (12.0-15.0); Lymphocyte # 1.76 X10^3/ul (0.83-4.51); Lymphocyte % 28.2 % (19-41); Mean Corp Hgb Conc 31.8 g/dL (32-36); Mean Corpuscular Hgb 29.9 pg (27.0-32.0); Mean Corpuscular Volume 93.8 fL (81-99); Mean Platelet Vol. 10.7 fl (6.2-12.0); Monocyte# 0.58 X10^3/uL; Monocyte% 9.3 % (0-10); NRBC Flagged by Analyzer 0 % (0-5); Neutrophil # 3.73 X10^3/uL (2.7-7.7); Neutrophil % 59.8 % (47-70); Platelet Count 248 K/mm3 (150-450); RBC Distribution Width CV 12.8 % (11.6-14.6); Red Blood Count 4.22 M/mm3 (4.2-5.4); White Blood Count 6.2 K/mm3 (4.4-11.0)
[2024-08-21 21:39] LABS: ALB/GLOB Ratio 1.4 RATIO (0.9-2.4); AST(SGOT) 20 U/L (<=31); Alanine Aminotransfer ALT/SGPT 10 U/L (<=34); Albumin, Serum 4.1 g/dL (3.4-4.8); Alkaline Phosphatase 101 U/L (35-104); Anion Gap 12 (5-15); BUN 22 mg/dL (4-19); BUN/Creat Ratio 18.2 RATIO (10-20); Calcium,Total 9.5 mg/dL (7.6-11.0); Carbon Dioxide 23.7 mmol/L (21.0-32.0); Chloride 105 mmol/L (98-108); Cholesterol 122 mg/dL (<=200); Creatinine, Serum 1.19 mg/dL (0.70-1.20); EST Glomerular Filtration Rate 47 (>60); Globulin 2.9 g/dL (2.2-4.2); Glucose 104 mg/dL (70-99); High Density Lipoprotein 43 mg/dL; Low Density Lipoprotein Calc. 51 mg/dL; Magnesium 2.3 mg/dL (1.5-2.2); Potassium 4.5 mmol/L (3.3-5.1); Protein, Total 7.1 g/dL (5.9-8.4); Sodium Level 141 mmol/L (133-145); Total Bilirubin 1.12 mg/dL (0.00-1.30); Triglycerides 144 mg/dL; Very Low Density Lipoprotein 29 mg/dL (5-40); Vitamin D,25 Hydroxy 29.1 ng/mL (30-100); cholesterol:hdl ratio screen 2.86
[2024-08-21 22:18] LABS: Hemoglobin A1c 6.5 % (<=5.6)
== END | disposition home or self-care (01) ==
LOC: MFPLAB 15:13
PROVIDERS: PCP Family Medicine; Referring Provider Family Medicine; Visit Provider Family Medicine
DX: E11.69 Type 2 diabetes mellitus with other specified complication (principal); R00.2 Palpitations; E55.9 Vitamin D deficiency, unspecified
CPT/HCPCS: 36415; 80053; 80061; 82306; 83036; 83735; 84439; 84443; 85025

== ENCOUNTER → 2024-12-18 | Outpatient (CLI) | payer MEDICARE, SELFPAY ==
--- NOTE | 2024-12-18 15:41 | CT_ITS ---
PROCEDURE: ABDOMEN/PELVIS WITH CONTRAST 12/18/2024 REASON FOR EXAM: TENDERNESS AT [place]URNEY'S POINT; right-sided pain x1 month intermittent TECHNIQUE: ABDOMEN/PELVIS WITH CONTRAST Coronal and Sagittal reconstruction series were provided. CONTRAST: Isovue-300 VOLUME: 97 mL One or more dose reduction techniques were used (e.g., Automated exposure control, adjustment of the mA and/or kV according to patient size, use of iterative reconstruction technique. RADIATION DOSE SUMMARY: DLP: 1212.88 mGycm COMPARISON: None. FINDINGS: Lung bases: Clear. Moderate coronary artery calcifications. Liver: No significant abnormality. No focal lesion. Gallbladder: Surgically absent. Postoperative/age-related prominence of the CBD. Spleen: Normal in size and morphology. Pancreas: Age-related diffuse fatty atrophy. No ductal dilatation. Adrenals: Unremarkable. Kidneys: Symmetric enhancement. No urolithiasis or hydroureteronephrosis. Bladder: Underdistended, grossly unremarkable. Reproductive Organs: Several degenerative calcified uterine fibroids. Unremarkable adnexae. Bowel: Oral contrast propagates to the descending colon. Normal appendix identified in the right lower quadrant. No pericecal inflammatory changes. No bowel obstruction or active inflammatory process identified. Moderate distal colonic diverticulosis without evidence for active diverticulitis/colitis. Lymph nodes: No suspicious lymph node enlargement. Vasculature: Abdominal aorta is tortuous but normal in caliber. Moderate atherosclerotic disease. Peritoneum / Retroperitoneum: No ascites or free air. Musculoskeletal: Moderate fat containing umbilical hernia measuring up to 7 cm with a relatively narrow neck measuring 1.5 cm. No substantial fat stranding to suggest incarcerated fat. Multilevel degenerative changes of the spine. CT/Abdomen/Pelvis WITH Contrast IMPRESSION: 1. No acute or active inflammatory process identified. Normal appendix. 2. No urolithiasis or hydroureteronephrosis on either side. 3. Moderate distal colonic diverticulosis without evidence for active diverticu litis. 4. Moderate fat containing umbilical hernia, no discrete evidence for fat incar ceration. Reading Location: [id number]
== END | disposition home or self-care (01) ==
PROVIDERS: PCP Family Medicine; Referring Provider Family Medicine; Visit Provider Family Medicine
DX: R10.813 Right lower quadrant abdominal tenderness (principal)
CPT/HCPCS: 74177; Q9967

== ENCOUNTER → 2024-12-18 | Outpatient (CLI) | payer MEDICARE, SELFPAY ==
[2024-12-18 15:18] LABS: Mucous, Urine 0 SEEN /hpf (<or=2+)
[2024-12-18 18:14] LABS: Hematocrit 37.9 % (37-47); Hemoglobin 12.0 g/dL (12.0-15.0); Immature Granulocytes Count 0.020 X10^3/uL (0.0-0.0); Mean Corp Hgb Conc 31.7 g/dL (32-36); Mean Corpuscular Volume 93.6 fL (81-99); Mean Platelet Vol. 11.1 fl (6.2-12.0); NRBC Flagged by Analyzer 0 % (0-5); Platelet Count 243 K/mm3 (150-450); RBC Distribution Width CV 12.9 % (11.6-14.6); RBC Distribution Width SD 44.0 fl (35.1-43.9); Red Blood Count 4.05 M/mm3 (4.2-5.4); White Blood Count 6.4 K/mm3 (4.4-11.0)
[2024-12-18 18:36] LABS: Color, Urine Yellow (Yellow); Glucose, Dipstick Normal (Normal); Ketone-Dipstick Negative (Negative); Leukocyte Esterase-Dipstick 100 /ul (Negative); Nitrite-Dipstick Negative (Negative); Occult Blood-Urine Negative /ul (Negative); Protein-Dipstick 15 mg/dl (Negative); Specific Gravity, Urine 1.015 (1.002-1.030); Urine Bilirubin Dipstick Negative (Negative)
[2024-12-18 18:39] LABS: Creatinine, Urine (random) 99.50 mg/dL (28.00-217.00); Microalbumin,Random Urine < 12.0 mg/L (<20 mg/L); Protein, Urine (Random) 8.9 mg/dL (0.0-12.0); Protein:Creat Ratio 89 mg/g CRE (0-200)
[2024-12-18 19:12] LABS: AST(SGOT) 21 U/L (<=31); Alanine Aminotransfer ALT/SGPT 12 U/L (<=34); Albumin, Serum 4.1 g/dL (3.4-4.8); Alkaline Phosphatase 100 U/L (35-104); Anion Gap 12 (5-15); BUN 21 mg/dL (4-19); BUN/Creat Ratio 19.0 RATIO (10-20); Calcium,Total 9.3 mg/dL (7.6-11.0); Carbon Dioxide 24.3 mmol/L (21.0-32.0); Chloride 106 mmol/L (98-108); Cholesterol 129 mg/dL (<=200); Globulin 2.9 g/dL (2.2-4.2); Glucose 102 mg/dL (70-99); Low Density Lipoprotein Calc. 57 mg/dL; Potassium 4.4 mmol/L (3.3-5.1); Triglycerides 139 mg/dL; Very Low Density Lipoprotein 28 mg/dL (5-40); Vitamin D,25 Hydroxy 27.8 ng/mL (30-100); cholesterol:hdl ratio screen 2.91
[2024-12-18 19:43] LABS: Red Blood Cells-Urine 0-5 SEEN /hpf (0-5); Squamous Epithelial Cells - UA 0-5 SEEN /hpf (5-10); Transitional Epithelial - Ur 0-5 SEEN /hpf (0-5)
--- OUTSIDE RECORDS SUMMARY | 2024-12-18 21:23 | XMS RPT_ITS | CCD ---
Author Organization [facility] Care Team Providers Care Enforcement Safety Officer Name Role Phone Dr. Garry Dillon Primary Care Provider Dr. Garry Dillon Referring Provider Dr. Tom Parnell Attending Provider Soheila, Dr. Tom Carroll Other Provider Dr. Garry Dillon Primary Care Provider Soheila, Dr. Tom Carroll Attending Provider Dr. Tom Parnell Referring Provider Dr. Garry Dillon Referring Provider Soheila, Dr. Tom Carroll Other Provider Unavailable Primary Care Provider Unavailkarly Dillon MD, Dr. Garry Polanco Primary Care Provider [phone] Dr. Garry Dillon MD Attending Provider Dr. Garry Dillon MD Referring Provider Garry Dillon Attending Unavailable Garry Dillon Primary Care Unavailable Garry Dillon Attending Unavailable Garry Dillon Primary Care Unavailable Garry Dillon Attending Unavailable Garry Dillon Referring Unavailable Garry Dillon Primary Care Unavailable Allergies Allergy Classification Reported Allergen(s) Allergy Type Date of Onset Reaction(s) Facility (9 sources) Morphine Drug Allergy 1 Nausea/Vom/Mary rrhea [facility] (11 sources) Penicillins; Translations: [Penicillins] Allergy to substance 5 Anaphylaxis [facility] (11 sources) Sulfonamides (Antibiotic); Translations: [Sulfa (Sulfonamide Antibiotics)] Allergy to substance 5 Intolerance [facility] (1 source) Chlorthalidone Drug Allergy 8 Intolerance [facility] Work Phone: (1 source) Codeine Drug Allergy 5 [facility] Work Phone: (1 source) Diclofenac Drug Allergy 5 Unknown [facility] (1 source) Doxycycline Drug Allergy 2 GI Upset [facility] (1 source) Morphine Drug Allergy 3 [facility] Repository Medications Current Medications Medication Drug Class(es) Dates Sig (Normalized) Sig (Original) atropine sulfate 0.025 mg / diphenoxylate hydrochloride 2.5 mg oral tablet (11 sources) Anticholinergic, Cholinergic Muscarinic Antagonist, Antidiarrheal Start: 10-06-2020 Diphenoxylate-At ropine (Lomotil) 2.5-0.025 mg tablet Active 1 {tbl} PO DAILY as needed for Diarrhea October 06, 2020 12:00am Start: 07-06-2018 take 1 tablet by four times daily as needed for diarrhea diphenoxylate-atropine (LOMOTIL) 2.5-0.025 mg per tablet Indications: Irritable bowel syndrome with both constipation and diarrhea Take 1 tablet by mouth four times daily as needed for Diarrhea for up to 30 days. 120 tablet 0 07/03/2020 Active betamethasone 0.5 mg/ml / clotrimazole 10 mg/ml topical cream (1 source) Azole Antifungal, Corticosteroid Start: 04-17-2018 clotrimazole-betamethasone (LOTRISONE) cream Indications: Monilial intertrigo Apply 1 application to affected area twice daily. 30 g 0 04/17/2018 Active ergocalciferol 1.25 mg oral capsule (8 sources) Provitamin D2 Compound Start: 10-05-2021 Ergocalciferol (Vitamin D2) 1,250 mcg (50,000 unit) capsule Active 90435 U PO MO October 05, 2021 12:00am Start: 10-05-2021 take 92811 [IU] by mouth once Ergocalciferol (Vitamin D2) Active 68404 UNIT PO MO October 04, 2021 11:00pm gabapentin 100 mg oral capsule (8 sources) Anti-epileptic Agent Start: 10-05-2021 take 3 capsules by mouth three times daily Gabapentin 100 mg capsule Active 300 mg PO THREE TIMES A DAY October 05, 2021 12:00am Start: 10-05-2021 take 300 mg by mouth three times daily Gabapentin Active 300 MG PO THREE TIMES A DAY October 04, 2021 11:00pm Start: 10-05-2021 take 100 mg by mouth once branden y Gabapentin Active 100 MG PO DAILY October 05, 2021 12:00am lactobacillus acidophilus [id number] unt oral capsule (1 source) Start: 03-03-2016 Acidophilus-Bif Animalis (DIGESTIVE PROBIOTIC) 10 billion cell cap Indications: Irritable bowel syndrome with both constipation and diarrhea daily 0 03/03/2016 Active losartan potassium 100 mg oral tablet (10 sources) Angiotensin 2 Receptor Jeancarlos Start: 07-03-2020 take 1 tablet by mouth once daily Losartan 100 mg tablet Active 100 mg PO DAILY October 06, 2020 12:00am 24 hr metoprolol succinate 100 mg extended release oral tablet (10 sources) beta-Adrenergic Jeancarlos Start: 10-06-2020 take 1 tablet by mouth twice daily Metoprolol Succinate 100 mg tablet extended release 24 hr Active 100 mg PO TWICE A DAY October 06, 2020 12:00am Start: 07-03-2020 take 1 tablet by dilip twice daily metoprolol tartrate, short acting, (LOPRESSOR) 100 mg tablet Take 1 tablet by mouth twice daily. 180 tablet 1 07/03/2020 Active mirtazapine 15 mg oral tablet (1 source) Start: 04-02-2020 take 1 tablet by mouth once daily at bedtime mirtazapine (REMERON) 15 mg tablet Indications: Chronic insomnia Take 1 tablet by mouth daily at bedtime. 30 tablet 5 04/02/2020 Active omeprazole 20 mg delayed release oral capsule (10 sources) Proton Pump Inhibitor Start: 07-31-2012 take 1 capsule by mouth once daily Omeprazole 20 mg capsule,delayed release(DR/EC) Active 20 mg PO DAILY October 06, 2020 12:00am sertraline 100 mg oral tablet (10 sources) Serotonin Reuptake Inhibitor Start: 10-06-2020 take 1 tablet by mouth once daily Sertraline 100 mg tablet Active 100 mg PO DAILY October 06, 2020 12:00am Start: 03-19-2020 sertraline (ZO LOFT) 50 mg tablet Indications: Chronic depression TAKE 1 TABLET EVERY DAY 90 tablet 2 03/19/2020 Active Vit C,H-Wn-Aefbh-Lutein-Zeax an (Preservision Areds-2) 250-90-40-1 mg Capsule (9 sources) Start: 10-30-2020 Vit C,P-Va-Qnwqg-Lutein-Zeax an (Preservision Areds-2) 250-90-40-1 mg Capsule Active 1 TABLET PO DAILY October 30, 2020 10:46am Start: 10-30-2020 take 2 capsules by m outh once daily Vit C,W-Qv-Ktpbz-Lutein-Zeaxan (Preservision Areds-2) 250-90-40-1 mg Capsule Active 1 {tbl} PO DAILY October 30, 2020 12:00am Start: 10-30-2020 Vit C,E-Zn-Joint Terminal Attack Controller sa-Ehoiix-Pbtybq (Preservision Areds-2) 250-90-40-1 mg Capsule Active 1 TABLET PO DAILY October 30, 2020 12:00am Start: 10-30-2020 Vit C,E-Zn-Joint Terminal Attack Controller dx-Tmgscu-Mgxfbu (Preservision Areds-2) 250-90-40-1 mg Capsule Active 1 TABLET PO DAILY October 29, 2020 11:00pm VIT C/VIT E AC/LUT/COPPER/ZI NC (PRESERVISION LUTEIN ORAL) (1 source) VIT C/VIT E AC/L UT/COPPER/ZINC (PRESERVISION LUTEIN ORAL) Take by mouth. 0 Active Completed/Discontinued Medications Medication Drug Class(es) Dates Sig (Normalized) Sig (Original) sucralfate 1000 mg oral tablet (18 sources) Aluminum Complex Start: 11-04-2020 End: 10-05-2021 take 1 tablet by mouth at bedtime Sucralfate (Carafate) 1 gram tablet Discontinued 1 g PO before meals and at bedtime 120 December 05, 2020 6:58am October 05, 2021 2:39pm Problems Active Problems Problem Classification Problem Date Documented Da te Episodic/Chronic Abdominal pain (9 sources) Abdominal pain; Translations: [Unspecified abdominal pain] 11-04-2020 Episodic Anxiety disorders (1 source) Anxiety disorder; Translations: [Anxiety disorder, unspecified] Onset: 5 07-19-2017 Chronic Chronic kidney disease (1 source) Chronic kidney disease stage 3; Translations: [Chronic renal insufficiency, stage 3 (moderate)] Onset: 9 05-16-2019 Chronic Diabetes mellitus with complications (2 sources) Type 2 diabetes mellitus with other specified complication; Translations: [Type 2 diabetes mellitus with other circulatory complications] Onset: 4 Chronic Disorders of lipid metabolism (1 source) Mixed hyperlipidemia; Translations: [Mixed hyperlipidemia] Onset: 9 05-08-2009 Chronic Esophageal disorders (10 sources) Gastroesophageal reflux disease; Translations: [Gastro-esophageal reflux disease without esophagitis] Onset: 9 10-06-2020 Chronic Essential hypertension (2 sources) Benign essential hypertension; Translations: [Essential (primary) hypertension] Onset: 5 Resolved: 0 07-19-2017 Chronic Gastritis and duodenitis (10 sources) Bile-induced gastritis; Translations: [Other gastritis without bleeding] Onset: 6 Resolved: 0 11-10-2020 Episodic Headache; including migraine (3 sources) Chronic intractable migraine without aura; Translations: [Chronic migraine without aura, intractable, without status migrainosus] Onset: 4 Resolved: 0 09-27-2013 Chronic Hypertension with complications and secondary hypertension (1 source) Chronic kidney disease stage 3 due to hypertension; Translations: [Hypertensive chronic kidney disease with stage 1 through stage 4 chronic kidney disease, or unspecified chronic kidney disease] Onset: 0 03-31-2020 Chronic Mood disorders (1 source) Chronic depression; Translations: [Chronic depression] Onset: 5 04-17-2018 Chronic Noninfectious gastroenteritis (9 sources) Chronic diarrhea; Translations: [Noninfective gastroenteritis and colitis, unspecified] 10-06-2020 Episodic Nutritional deficiencies (1 source) Vitamin D deficiency, unspecified; Translations: [Vitamin D deficiency, unspecified] Onset: 4 Chronic Osteoarthritis (4 sources) Osteoarthritis; Translations: [Unspecified osteoarthritis, unspecified site] Onset: 5 Resolved: 0 07-19-2017 Chronic Other and unspecified benign neoplasm (9 sources) Adenomatous polyp of colon ; Translations: [Benign neoplasm of colon, unspecified] 10-05-2021 Episodic Other and unspecified benign neoplasm (9 sources) History of polyp of colon; Translations: [Personal history of colonic polyps] 11-10-2020 Episodic Other and unspecified benign neoplasm (1 source) Benign neoplasm of colon, unspecified; Translations: [Benign neoplasm of colon] Episodic Other and unspecified benign neoplasm (2 sources) Personal history of colonic polyps; Translations: [Personal history of colonic polyps] 10-14-2022 Episodic Other gastrointestinal disorders (1 source) Irritable bowel syndrome; Translations: [Irritable bowel syndrome without diarrhea] Onset: 5 05-08-2009 Chronic Other gastrointestinal disorders (9 sources) Occult blood in stools; Translations: [Other fecal abnormalities] 10-06-2020 Episodic Residual codes; unclassified (9 sources) Family history of cancer of colon; Translations: [Family history of malignant neoplasm of digestive organs] 10-06-2020 Episodic Residual codes; unclassified (2 sources) Family history of malignant neoplasm of digestive organs; Translations: [Family history of malignant neoplasm of gastrointestinal tract] 10-14-2022 Episodic Retinal detachments; defects; vascular occlusion; and retinopathy (10 sources) Degenerative disorder of macula ; Translations: [Unspecified macular degeneration] Onset: 7 10-06-2020 Chronic Past or Other Problems Problem Classification Problem Date Documented Da te Episodic/Chronic Adjustment disorders (1 source) Adjustment disorder with depressed mood; Translations: [Adjustment disorder with depressed mood] Resolved: 03-31-2020 03-31-2020 Chronic Allergic reactions (2 sources) Allergy to penicillin; Translations: [Allergy status to penicillin] Onset: 12-26-2008 05-08-2009 Episodic Cardiac dysrhythmias (1 source) Palpitations - rapid; Translations: [Palpitations] Onset: 02-09-2010 Resolved: 03-31-2020 03-31-2020 Episodic Conditions associated with dizziness or vertigo (1 source) Intermittent vertigo; Translations: [Dizziness and giddiness] Onset: 08-23-2013 08-23-2013 Episodic Headache; including migraine (3 sources) Chronic daily headache; Translations: [Chronic daily headache] Onset: 03-25-2005 Resolved: 03-31-2020 09-27-2013 Episodic Mycoses (1 source) Candidal intertrigo; Translations: [Candidiasis of skin and nail] Onset: 04-18-2013 07-19-2017 Episodic Other connective tissue disease (1 source) Muscle pain; Translations: [Myalgia and myositis, unspecified] Onset: 03-25-2005 Resolved: 03-31-2020 03-31-2020 Episodic Other inflammatory condition of skin (1 source) Intertrigo; Translations: [Erythema intertrigo] Onset: 04-18-2013 07-19-2017 Episodic Other non-traumatic joint disorders (1 source) Shoulder pain; Translations: [Pain in unspecified shoulder] Onset: 09-14-2010 09-14-2010 Episodic Other screening for suspected conditions (not mental disorders or infectious disease) (1 source) Patient encounter status; Translations: [Encounter for screening for malignant neoplasm of colon] Onset: 04-13-2011 Resolved: 03-31-2020 03-31-2020 Episodic Other skin disorders (1 source) Inflamed seborrheic keratosis; Translations: [Inflamed seborrheic keratosis] Onset: 02-28-2013 07-19-2017 Episodic Other skin disorders (1 source) Seborrheic keratosis; Translations: [Other seborrheic keratosis] Onset: 02-28-2013 07-19-2017 Episodic Other skin disorders (1 source) Solar lentigo; Translations: [Other melanin hyperpigmentation] Onset: 02-28-2013 07-19-2017 Episodic Other skin disorders (1 source) Asteatosis cutis; Translations: [Xerosis cutis] Onset: 02-28-2013 07-19-2017 Episodic Other skin disorders (1 source) Changes in skin texture; Translations: [Other skin changes] Onset: 04-18-2013 07-19-2017 Episodic Viral infection (1 source) Verruca vulgaris; Translations: [Viral wart, unspecified] Onset: 02-28-2013 02-28-2013 Episodic Results Test Name Value Interpretation Reference Range Facility Absolute neutrophil countOrd ered By: Garry Dillon on 08-21-2024 Neutrophils (Bld) [#/Vol] 3.7 10*3/uL 2.0-7.7 [facility] Anion gap in Serum or Plasma Ordered By: Garry Dillon on 08-21-2024 Anion gap [Moles/Vol] 12 mmol/L 5-15 [facility] BUN/creatinine ratioOrdered By: Garry Dillon on 08-21-2024 Urea nitrogen/Creatinine [Mass ratio] 18.2 mg/mg 10-20 [facility] Basophil percentageOrdered B y: Garry Dillon on 08-21-2024 Basophils/100 WBC (Bld) 0.6 % 0-1 [facility] Bilirubin, totalOrdered By: Garry Dillon on 08-21-2024 Bilirubin [Mass/Vol] 1.12 mg/dL 0.00-1.30 [facility] CBC W/Diff, Automatedon 07-29 Absolute Lymph 1.76 X10 3/uL Normal 0.83-4.51 [facility] Comment on above: Order Comment: Order Date: 08/21/24 Order Info: [id number] - CBCD Performed By: #### L 500.4100, L501.9985, L500.4050, L100.0100 #### [facility] [address] [place], [address] Absolute Neut 3.7 X10 3/uL Normal 2.0-7.7 [facility] Comment on above: Order Comment: Order Date: 08/21/24 Order Info: [id number] - CBCD Performed By: #### L 500.4100, L501.9985, L500.4050, L100.0100 #### [facility] [address] [place], [address] Basophils/100 WBC (Bld) 0.6 % Normal 0-1 [facility] Comment on above: Order Comment: Order Date: 08/21/24 Order Info: [id number] - CBCD Performed By: #### L 500.4100, [id number], L500.4050, L100.0100 #### [facility] [address] [place], [address] Eosinophils/100 WBC (Bld) 1.9 % Normal 0-5 [facility] Comment on above: Order Comment: Order Date: 08/21/24 Order Info: [id number] - CBCD Performed By: #### L 500.4100, L501.9985, L500.4050, L100.0100 #### [facility] [address] [place], [address] Erythrocyte distribution width (RBC) [Ratio] 12.8 % Normal 11.6-14.6 [facility] Comment on above: Order Comment: Order Date: 08/21/24 Order Info: [id number]- - CBCD Performed By: #### L 500.4100, L501.9985, L500.4050, L100.0100 #### [facility] [address] [place], [address] Hematocrit (Bld) [Volume fraction] 39.6 % Normal 37-47 [facility] Comment on above: Order Comment: Order Date: 08/21/24 Order Info: [id number]- - CBCD Performed By: #### L 500.4100, L501.9985, L500.4050, L100.0100 #### [facility] [address] [place], [address] Hemoglobin (Bld) [Mass/Vol] 12.6 g/dL Normal 12.0-15.0 [facility] Comment on above: Order Comment: Order Date: 08/21/24 Order Info: [id number]- - CBCD Performed By: #### L 500.4100, L501.9985, L500.4050, L100.0100 #### [facility] [address] [place], [address] IG% 0.200 Normal 0.0-0.9 [facility] Comment on above: Order Comment: Order Date: 08/21/24 Order Info: [id number] - CBCD Result Comment: IG% - Immature Granulocytes (promyelocytes, myelocytes and metamyelocytes) > 1% indicates that a LEFT SHIFT is Present. Performed By: #### L 500.4100, L501.9985, L500.4050, L100.0100 #### [facility] [address] [place], [address] Lymphocytes/100 WBC (Bld) 28.2 % Normal 19-41 [facility] Comment on above: Order Comment: Order Date: 08/21/24 Order Info: 0184-1 - CBCD Performed By: #### L 500.4100, L501.9985, L500.4050, L100.0100 #### [facility] [address] [place], [address] MCH (RBC) [Entitic mass] 29.9 pg Normal 27.0-32.0 [facility] Comment on above: Order Comment: Order Date: 08/21/24 Order Info: [id number] - CBCD Performed By: #### L 500.4100, L501.9985, L500.4050, L100.0100 #### [facility] [address] [place], [address] MCHC (RBC) [Mass/Vol] 31.8 g/dL Low 32-36 [facility] Comment on above: Order Comment: Order Date: 08/21/24 Order Info: [id number] - CBCD Performed By: #### L 500.4100, L501.9985, L500.4050, L100.0100 #### [facility] [address] [place], [address] MCV (RBC) [Entitic vol] 93.8 fL Normal 81-99 [facility] Comment on above: Order Comment: Order Date: 08/21/24 Order Info: 0184-1 - CBCD Performed By: #### L 500.4100, L501.9985, L500.4050, L100.0100 #### [facility] [address] [place], [address] Monocytes/100 WBC (Bld) 9.3 % Normal 0-10 [facility] Comment on above: Order Comment: Order Date: 08/21/24 Order Info: 0184-1 - CBCD Performed By: #### L 500.4100, L501.9985, L500.4050, L100.0100 #### [facility] [address] [place], [address] Neutrophils/100 WBC (Bld) 59.8 % Normal 47-70 [facility] Comment on above: Order Comment: Order Date: 08/21/24 Order Info: 0184-1 - CBCD Performed By: #### L 500.4100, L501.9985, L500.4050, L100.0100 #### [facility] [address] [place], [address] Nucleated RBC (Bld) [#/Vol] 0 10*3/uL Normal 0-5 [facility] Comment on above: Order Comment: Order Date: 08/21/24 Order Info: [id number] - CBCD Performed By: #### L 500.4100, L501.9985, L500.4050, L100.0100 #### [facility] [address] [place], [address] Platelet mean volume (Bld) [Entitic vol] 10.7 fL Normal 6.2-12.0 [facility] Comment on above: Order Comment: Order Date: 08/21/24 Order Info: 0184-1 - CBCD Performed By: #### L 500.4100, L501.9985, L500.4050, L100.0100 #### [facility] [address] [place], [address] Platelets (Bld) [#/Vol] 248 10*3/uL Normal 150-450 [facility] Comment on above: Order Comment: Order Date: 08/21/24 Order Info: 0184-1 - CBCD Performed By: #### L 500.4100, L501.9985, L500.4050, L100.0100 #### [facility] [address] [place], [address] RBC (Bld) [#/Vol] 4.22 10*6/uL Normal 4.2-5.4 [facility] Comment on above: Order Comment: Order Date: 08/21/24 Order Info: 0184-1 - CBCD Performed By: #### L 500.4100, L501.9985, L500.4050, L100.0100 #### [facility] [address] [place], [address] RDW SD 44.0 fl High 35.1-43.9 [facility] Comment on above: Order Comment: Order Date: 08/21/24 Order Info: 0184-1 - CBCD Performed By: #### L 500.4100, L501.9985, L500.4050, L100.0100 #### [facility] [address] [place], [address] WBC (Bld) [#/Vol] 6.2 10*3/uL Normal 4.4-11.0 [facility] Comment on above: Order Comment: Order Date: 08/21/24 Order Info: 0184-1 - CBCD Performed By: #### L 500.4100, L501.9985, L500.4050, L100.0100 #### [facility] [address] [place], [address] Calculated very low density lipoprotein (VLDL) cholesterol measurementOrdered By: Garry Dillon on 08-21-2024 VLDL Cholesterol 29 mg/dL 5-40 [facility] Carbon dioxide, total [Moles /volume] in Central venous bloodOrdered By: Garry Dillon on 08-21-2024 CO2 [Moles/Vol] 23.7 mmol/L 21.0-32.0 [facility] Chloride assayOrdered By: Gill Dillon on 08-21-2024 Chloride [Moles/Vol] 105 mmol/L 98-108 [facility] Comprehensive Metabolic Prof ilon 08-21-2024 Albumin [Mass/Vol] 4.1 g/dL Normal 3.4-4.8 [facility] Comment on above: Order Comment: Order Date: 08/21/24 Order Info: [id number] - CMP Order Info: [id number] - LIPID Order Info: [id number] - MG Order Info: [id number] - TSH Order Info: [id number] - T4F Performed By: #### L 500.4100, L501.9985, L500.4050, L100.0100 #### [facility] [address] [place], [address] Albumin/Globulin [Mass ratio] 1.4 {ratio} Normal 0.9-2.4 [facility] Comment on above: Order Comment: Order Date: 08/21/24 Order Info: [id number] - CMP Order Info: [id number] - LIPID Order Info: [id number] - MG Order Info: [id number] - TSH Order Info: [id number] - T4F Performed By: #### L 500.4100, L501.9985, L500.4050, L100.0100 #### [facility] [address] [place], [address] ALK PHOS 101 U/L Normal 35-104 [facility] Comment on above: Order Comment: Order Date: 08/21/24 Order Info: [id number] - CMP Order Info: [id number] - LIPID Order Info: [id number] - MG Order Info: [id number] - TSH Order Info: [id number] - T4F Performed By: #### L 500.4100, L501.9985, L500.4050, L100.0100 #### [facility] [address] [place], [place], [address] ALT [Catalytic activity/Vol] 10 U/L Normal <=34 [facility] Comment on above: Order Comment: Order Date: 08/21/24 Order Info: [id number] - CMP Order Info: - LIPID Order Info: [id number] - MG Order Info: [id number] - TSH Order Info: [id number] - T4F Performed By: #### L 500.4100, L501.9985, L500.4050, L100.0100 #### [facility] [address] [place], [address] AST [Catalytic activity/Vol] 20 U/L Normal <=31 [facility] Comment on above: Order Comment: Order Date: 08/21/24 Order Info: [id number] - CMP Order Info: [id number] - LIPID Order Info: [id number] - MG Order Info: 3 - TSH Order Info: [id number] - T4F Performed By: #### L 500.4100, L501.9985, L500.4050, L100.0100 #### [facility] [address] [place], [place], [address] Bilirubin [Mass/Vol] 1.12 mg/dL Normal 0.00-1.30 [facility] Comment on above: Order Comment: Order Date: 08/21/24 Order Info: [id number]- - CMP Order Info: - LIPID Order Info: [id number] - MG Order Info: 6-3 - TSH Order Info: [id number] - T4F Performed By: #### L 500.4100, L501.9985, L500.4050, L100.0100 #### [facility] [address] [place], [address] BUN/CRE 18.2 RATIO Normal 10-20 [facility] Comment on above: Order Comment: Order Date: 08/21/24 Order Info: 86-1 - CMP Order Info: [id number] - LIPID Order Info: [id number] - MG Order Info: [id number] - TSH Order Info: [id number] - T4F Performed By: #### L 500.4100, L501.9985, L500.4050, L100.0100 #### [facility] [address] [place], [address] Calcium [Mass/Vol] 9.5 mg/dL Normal 7.6-11.0 [facility] Comment on above: Order Comment: Order Date: 08/21/24 Order Info: [id number] - CMP Order Info: [id number] - LIPID Order Info: [id number] - MG Order Info: [id number] - TSH Order Info: [id number] - T4F Performed By: #### L 500.4100, L501.9985, L500.4050, L100.0100 #### [facility] [address] [place], [address] Chloride [Moles/Vol] 105 mmol/L Normal 98-108 [facility] Comment on above: Order Comment: Order Date: 08/21/24 Order Info: [id number] - CMP Order Info: [id number] - LIPID Order Info: [id number] - MG Order Info: [id number] - TSH Order Info: [id number] - T4F Performed By: #### L 500.4100, L501.9985, L500.4050, L100.0100 #### [facility] [address] [place], [address] CO2 [Moles/Vol] 23.7 mmol/L Normal 21.0-32.0 [facility] Comment on above: Order Comment: Order Date: 08/21/24 Order Info: 0786-1 - CMP Order Info: [id number] - LIPID Order Info: [id number] - MG Order Info: [id number] - TSH Order Info: 3024-7 - T4F Performed By: #### L 500.4100, L501.9985, L500.4050, L100.0100 #### [facility] [address] [place], [address] Creatinine [Mass/Vol] 1.19 mg/dL Normal 0.70-1.20 [facility] Comment on above: Order Comment: Order Date: 08/21/24 Order Info: 0786-1 - CMP Order Info: [id number] - LIPID Order Info: [id number] - MG Order Info: [id number] - TSH Order Info: 3027 - T4F Performed By: #### L 500.4100, L501.9985, L500.4050, L100.0100 #### [facility] [address] [place], [address] GAP 12 Normal 5-15 [facility] Comment on above: Order Comment: Order Date: 08/21/24 Order Info: 785-1 - CMP Order Info: [id number] - LIPID Order Info: [id number] - MG Order Info: 3 - TSH Order Info: 7 - T4F Performed By: #### L 500.4100, L501.9985, L500.4050, L100.0100 #### [facility] [address] [place], [place], [id number] GFR/1.73 sq M.predicted among non-blacks MDRD (S/P/Bld) [Vol rate/Area] 47 mL/min/{1.73_m2} Low >60 [facility] Comment on above: Order Comment: Order Date: 08/21/24 Order Info: 0786-1 - CMP Order Info: [id number] - LIPID Order Info: [id number] - MG Order Info: 3 - TSH Order Info: 7 - T4F Result Comment: mL/m in/1.73m2 CKD-EPI Creatinine Equation (2020) Performed By: #### L 500.4100, L501.9985, L500.4050, L100.0100 #### [facility] [address] [place], [place], [id number] Globulin (S) [Mass/Vol] 2.9 g/dL Normal 2.2-4.2 [facility] Comment on above: Order Comment: Order Date: 08/21/24 Order Info: 0786-1 - CMP Order Info: [id number] - LIPID Order Info: [id number] - MG Order Info: [id number] - TSH Order Info: 3024-7 - T4F Performed By: #### L 500.4100, L501.9985, L500.4050, L100.0100 #### [facility] [address] [place], [address] Glucose [Mass/Vol] 104 mg/dL High 70-99 [facility] Comment on above: Order Comment: Order Date: 08/21/24 Order Info: 0786-1 - CMP Order Info: [id number] - LIPID Order Info: [id number] - MG Order Info: 3 - TSH Order Info: 3024-7 - T4F Performed By: #### L 500.4100, L501.9985, L500.4050, L100.0100 #### [facility] [address] [place], [address] Potassium [Moles/Vol] 4.5 mmol/L Normal 3.3-5.1 [facility] Comment on above: Order Comment: Order Date: 08/21/24 Order Info: 86-1 - CMP Order Info: [id number] - LIPID Order Info: [id number] - MG Order Info: 3 - TSH Order Info: 3024-7 - T4F Performed By: #### L 500.4100, L501.9985, L500.4050, L100.0100 #### [facility] [address] [place], [address] Sodium [Moles/Vol] 141 mmol/L Normal 133-145 [facility] Comment on above: Order Comment: Order Date: 08/21/24 Order Info: 0786-1 - CMP Order Info: [id number] - LIPID Order Info: [id number] - MG Order Info: [id number] - TSH Order Info: 3024-7 - T4F Performed By: #### L 500.4100, L501.9985, L500.4050, L100.0100 #### [facility] [address] [place], [address] T PROT 7.1 g/dL Normal 5.9-8.4 [facility] Comment on above: Order Comment: Order Date: 08/21/24 Order Info: 0786-1 - CMP Order Info: [id number] - LIPID Order Info: [id number] - MG Order Info: [id number] - TSH Order Info: 3024-7 - T4F Performed By: #### L 500.4100, L501.9985, L500.4050, L100.0100 #### [facility] [address] [place], [place], [id number] Urea nitrogen [Mass/Vol] 22 mg/dL High 4-19 [facility] Comment on above: Order Comment: Order Date: 08/21/24 Order Info: 0786-1 - CMP Order Info: [id number] - LIPID Order Info: [id number] - MG Order Info: 3 - TSH Order Info: 3027 - T4F Performed By: #### L 500.4100, L501.9985, L500.4050, L100.0100 #### [facility] [address] [place], [place], [id number] Eosinophil percentageOrdered By: Garry Dillon on 08-21-2024 Eosinophils/100 WBC (Bld) 1.9 % 0-5 [facility] Erythrocyte distribution wid th ratioOrdered By: Garry Dillon on 08-21-2024 Erythrocyte distribution width (RBC) [Ratio] 12.8 % 11.6-14.6 [facility] Erythrocyte distribution wid th standard deviationOrdered By: Garry Dillon on 08-21-2024 Erythrocyte distribution width (RBC) [Entitic vol] 44.0 fL High 35.1-43.9 [facility] GFR/1.73 sq M.predicted brittney g non-blacks MDRD (S/P/Bld) [Vol rate/Area]Ordered By: Garry Dillon on 08-21-2024 Estimated GFR (MDRD) Non-Af Amer 47 Low >60 [facility] Comment on above: mL/min/1.73m2 CKD-EP I Creatinine Equation (2020) Hematocrit Auto (Bld) [Volum e fraction]Ordered By: Garry Dillon on 08-21-2024 Hematocrit (Bld) [Volume fraction] 39.6 % 37-47 [facility] Hemoglobin A1con 08-21-2024 HbA1c (Bld) [Mass fraction] 6.5 % Normal <=5.6 [facility] Comment on above: Order Comment: Order Date: 08/21/24 Order Info: [id number] - A1C Performed By: #### L 500.4100, L501.9985, L500.4050, L100.0100 #### [facility] [address] [place], [address] Hemoglobin A1c percentageOrd ered By: Garry Dillon on 08-21-2024 HbA1c (Bld) [Mass fraction] 6.5 % >5.7 [facility] Hemoglobin measurementOrdere d By: Garry Dillon on 08-21-2024 Hemoglobin (Bld) [Mass/Vol] 12.6 g/dL 12.0-15.0 [facility] Immature granulocytes/100 WB C Auto (Bld)Ordered By: Garry Dillon on 08-21-2024 Immature granulocytes/100 WBC (Bld) 0.200 % 0.0-0.9 [facility] Comment on above: IG% - Immature Granu locytes (promyelocytes, myelocytes and metamyelocytes) > 1% indicates that a LEFT SHIFT is Present. L506.1001on 08-21-2024 Vitamin D 25-OH 29.1 ng/mL Low 30-100 [facility] Comment on above: Order Comment: Order Date: 08/21/24 Order Info: 0786-1 - CMP Order Info: [id number] - LIPID Order Info: [id number] - MG Order Info: [id number] - TSH Order Info: 3024-7 - T4F Result Comment: Vanessa min D Status Deficiency: <20 ng/mL (50nmol/L) Insufficiency: 20-30 ng/mL (50-75 nmol/L) Sufficiency: 30-100 ng/mL (75-250 nmol/L) Toxicity: >100 ng/mL (>250 nmol/L) Performed By: #### L 500.4100, L501.9985, L500.4050, L100.0100 #### [facility] [address] [place], [address] LDL calc ser/plasOrdered By: Garry Dillon on 08-21-2024 LDL Cholesterol, Calculated 51 mg/dL [facility] Comment on above: Yhhqfczhnz=196-296 m g/dL & Higher Lxym=023 mg/dL or greater Laboratory - Chemistry and C hemistry - challengeOrdered By: Garry Dillon on 08-21-2024 AST [Catalytic activity/Vol] 20 U/L <32 [facility] Lipid Profileon 08-21-2024 CHOL:HDL 2.86 Normal [facility] Comment on above: Order Comment: Order Date: 08/21/24 Order Info: 0786-1 - CMP Order Info: [id number] - LIPID Order Info: [id number] - MG Order Info: [id number] - TSH Order Info: 302-7 - T4F Performed By: #### L 500.4100, L501.9985, L500.4050, L100.0100 #### [facility] [address] [place], [address] Cholesterol [Mass/Vol] 122 mg/dL Normal <=200 [facility] Comment on above: Order Comment: Order Date: 08/21/24 Order Info: 0786-1 - CMP Order Info: [id number] - LIPID Order Info: [id number] - MG Order Info: 3016-3 - TSH Order Info: 3024-7 - T4F Result Comment: Chol esterol level, Desirable <200 mg/dL Borderline high cholesterol 200-239 mg/dL High cholesterol >=240 mg/dL Recommendations of the NCEP Adult Treatment Panel for the following risk-cutoff thresholds for the [place] population. Performed By: #### L 500.4100, L501.9985, L500.4050, L100.0100 #### [facility] [address] [place], [address] Cholesterol in HDL [Mass/Vol] 43 mg/dL Normal [facility] Comment on above: Order Comment: Order Date: 08/21/24 Order Info: 0786-1 - CMP Order Info: [id number] - LIPID Order Info: [id number] - MG Order Info: 3 - TSH Order Info: 7 - T4F Result Comment: Sandra onal Cholesterol Education Program (NCEP) guidelines: <40 mg/dL: Low HDL-cholesterol (major risk factor for CHD) >= 60 mg/dL: High HDL-cholesterol (negative risk factor for CHD) HDL-cholesterol is affected by a number of factors, e.g. smoking, exercise, hormones, sex and age. Performed By: #### L 500.4100, L501.9985, L500.4050, L100.0100 #### [facility] [address] [place], [address] Cholesterol in LDL [Mass/Vol] 51 mg/dL Normal [facility] Comment on above: Order Comment: Order Date: 08/21/24 Order Info: 0786 - CMP Order Info: - LIPID Order Info: [id number] - MG Order Info: 3 - TSH Order Info: 3023-11 - T4F Result Comment: Bord cjmmrc=640-408 mg/dL Higher Obtg=048 mg/dL or greater Performed By: #### L 500.4100, L501.9985, L500.4050, L100.0100 #### [facility] [address] [place], [address] Cholesterol in VLDL [Mass/Vol] 29 mg/dL Normal 5-40 [facility] Comment on above: Order Comment: Order Date: 08/21/24 Order Info: 0786-1 - CMP Order Info: [id number] - LIPID Order Info: [id number] - MG Order Info: 3 - TSH Order Info: 7 - T4F Performed By: #### L 500.4100, L501.9985, L500.4050, L100.0100 #### [facility] [address] [place], [address] Triglyceride [Mass/Vol] 144 mg/dL Normal [facility] Comment on above: Order Comment: Order Date: 08/21/24 Order Info: 0786-1 - CMP Order Info: [id number] - LIPID Order Info: [id number] - MG Order Info: 3 - TSH Order Info: 3023-11 - T4F Result Comment: The drugs N-Acetylcysteine and Metamizole may falsely depress this assay. Normal range: <150 mg/dL Borderline High: 150-199 mg/dL High: 200-499 mg/dL Very High: >500 mg/dL Performed By: #### L 500.4100, L501.9985, L500.4050, L100.0100 #### [facility] [address] [place], [address] Lymphocytes Auto (Unsp spec) [#/Vol]Ordered By: Garry Dillon on 08-21-2024 Lymphocytes (Bld) [#/Vol] 1.76 10*3/uL 0.83-4.51 [facility] Lymphocytes/100 WBC Auto (Un sp spec)Ordered By: Garry Dillon on 08-21-2024 Lymphocytes/100 WBC (Bld) 28.2 % 19-41 [facility] MCV (mean corpuscular volume ) determinationOrdered By: Garry Dillon on 08-21-2024 MCV (RBC) [Entitic vol] 93.8 fL 81-99 [facility] Magnesiumon 08-21-2024 Magnesium [Mass/Vol] 2.3 mg/dL High 1.5-2.2 [facility] Comment on above: Order Comment: Order Date: 08/21/24 Order Info: 0786-1 - CMP Order Info: [id number] - LIPID Order Info: [id number] - MG Order Info: 3 - TSH Order Info: 3023-11 - T4F Performed By: #### L 500.4100, L501.9985, L500.4050, L100.0100 #### [facility] [address] [place], [address] Magnesium (Unsp spec) [Mass/ Vol]Ordered By: Garry Dillon on 08-21-2024 Magnesium [Mass/Vol] 2.3 mg/dL High 1.5-2.2 [facility] Mean corpuscular hemoglobin (MCH) determinationOrdered By: Garry Dillon on 08-21-2024 MCH (RBC) [Entitic mass] 29.9 pg 27.0-32.0 [facility] Mean corpuscular hemoglobin concentration (MCHC) determinationOrdered By: Garry Dillon on 08-21-2024 MCHC (RBC) [Mass/Vol] 31.8 g/dL Low 32-36 [facility] Mean platelet volume determi nationOrdered By: Garry Dillon on 08-21-2024 Platelet mean volume (Bld) [Entitic vol] 10.7 fL 6.2-12.0 [facility] Monocyte percentageOrdered B y: Garry Dillon on 08-21-2024 Monocytes/100 WBC (Bld) 9.3 % 0-10 [facility] Neutrophil percentageOrdered By: Garry Dillon on 08-21-2024 Neutrophils/100 WBC (Bld) 59.8 % 47-70 [facility] Nucleated red blood cell per centageOrdered By: Garry Dillon on 08-21-2024 Nucleated RBC/100 WBC (Bld) [Ratio] 0 % 0-5 [facility] Platelet countOrdered By: Gill Dillon on 08-21-2024 Platelets (Bld) [#/Vol] 248 10*3/uL 150-450 [facility] Potassium ([facility] spec) [Mass/ Vol]Ordered By: Garry Dillon on 08-21-2024 Potassium [Moles/Vol] 4.5 mmol/L 3.3-5.1 [facility] RBC Auto (Bld) [#/Vol]Ordere d By: Garry Dillon on 08-21-2024 RBC (Bld) [#/Vol] 4.22 10*6/uL 4.2-5.4 [facility] Screening total cholesterol/ high density lipoprotein (HDL) cholesterol ratioOrdered By: Garry Dillon on 08-21-2024 Cholesterol.total/Choles terol in HDL [Mass ratio] 2.86 {ratio} [facility] Serum creatinine measurement (mass/volume)Ordered By: Garry Dillon on 08-21-2024 Creatinine [Mass/Vol] 1.19 mg/dL 0.70-1.20 [facility] Serum globulin measurementOr dered By: Garry Dillon on 08-21-2024 Globulin (S) [Mass/Vol] 2.9 g/dL 2.2-4.2 [facility] Serum glucose measurement (m ass/volume)Ordered By: Garry Dillon on 08-21-2024 Glucose [Mass/Vol] 104 mg/dL High 70-99 [facility] Serum or plasma alanine coley otransferase (ALT) measurementOrdered By: Garry Dillon on 08-21-2024 ALT [Catalytic activity/Vol] 10 U/L <35 [facility] Serum or plasma albumin diann urement (mass/volume)Ordered By: Garry Dillon on 08-21-2024 Albumin [Mass/Vol] 4.1 g/dL 3.4-4.8 [facility] Serum or plasma albumin/glob ulin mass ratioOrdered By: Garry Dillon on 08-21-2024 Albumin/Globulin [Mass ratio] 1.4 {ratio} 0.9-2.4 [facility] Serum or plasma alkaline thanh sphatase measurementOrdered By: Garry Dillon on 08-21-2024 ALP [Catalytic activity/Vol] 101 U/L 35-104 [facility] Serum or plasma calcium diann urement (mass/volume)Ordered By: Garry Dillon on 08-21-2024 Calcium [Mass/Vol] 9.5 mg/dL 7.6-11.0 [facility] Serum or plasma cholesterol in HDL measurement (mass/volume)Ordered By: Garry Dillon on 08-21-2024 Cholesterol in HDL [Mass/Vol] 43 mg/dL >40 [facility] Comment on above: National Cholesterol Education Program (NCEP) guidelines:<40 mg/dL: Low HDL-cholesterol (major risk factor for CHD)>= 60 mg/dL: High HDL-cholesterol (negative risk factor for CHD)HDL-cholesterol is affected by a number of factors, e.g. smoking, exercise, hormones, sex and age. Serum or plasma cholesterol measurement (mass/volume)Ordered By: Garry Dillon on 08-21-2024 Cholesterol [Mass/Vol] 122 mg/dL <201 [facility] Comment on above: Cholesterol level, D esirable <200 mg/dLBorderline high cholesterol 200-239 mg/dLHigh cholesterol >=240 mg/dLRecommendations of the NCEP Adult Treatment Panel for the following risk-cutoff thresholds for the [place] population. Serum or plasma urea nitroge n measurement (mass/volume)Ordered By: Garry Dillon on 08-21-2024 Urea nitrogen [Mass/Vol] 22 mg/dL High 4-19 [facility] Sodium levelOrdered By: Garry Dillon on 08-21-2024 Sodium [Moles/Vol] 141 mmol/L 133-145 [facility] T4 Free Directon 08-21-2024 T4 FREE DIRECT 1.10 ng/dL Normal 0.76-1.46 [facility] Comment on above: Order Comment: Order Date: 08/21/24 Order Info: 0786-1 - CMP Order Info: [id number] - LIPID Order Info: [id number] - MG Order Info: 3016-3 - TSH Order Info: 3024-7 - T4F Performed By: #### L 500.4100, L501.9985, L500.4050, L100.0100 #### [facility] [address] [place], [address] T4 freeOrdered By: Garry adair on 08-21-2024 Free T4 [Mass/Vol] 1.10 ng/dL 0.76-1.46 [facility] TSH DL <= 0.005 mIU/L QnOrde red By: Garry Dillon on 08-21-2024 Thyroid Stimulating Hormone (TSH) 2.640 uIU/mL 0.300-4.200 [facility] Thyroid Stim Hormone (TSH)on 08-21-2024 TSH 2.640 uIU/mL Normal 0.300-4.200 [facility] Comment on above: Order Comment: Order Date: 08/21/24 Order Info: 0786-1 - CMP Order Info: [id number] - LIPID Order Info: [id number] - MG Order Info: [id number] - TSH Order Info: 3024-7 - T4F Performed By: #### L 500.4100, L501.9985, L500.4050, L100.0100 #### [facility] [address] [place], [address] Total proteinOrdered By: Emerson Dillon on 08-21-2024 Protein [Mass/Vol] 7.1 g/dL 5.9-8.4 [facility] Triglycerides measurementOrd ered By: Garry Dillon on 08-21-2024 Triglyceride [Mass/Vol] 144 mg/dL <199 [facility] Comment on above: The drugs N-Acetylcy steine and Metamizole may falsely depress this assay. Normal range: <150 mg/dLBorderline High: 150-199 mg/dLHigh: 200-499 mg/dLVery High: >500 mg/dL Vitamin D, 25-hydroxyOrdered By: Garry Dillon on 08-21-2024 Vitamin D 25-Hydroxy 29.1 ng/mL Low 30-100 [facility] Comment on above: Vitamin D StatusDefi ciency: <20 ng/mL (50nmol/L)Insufficiency: 20-30 ng/mL (50-75 nmol/L)Sufficiency: 30-100 ng/mL (75-250 nmol/L)Toxicity: >100 ng/mL (>250 nmol/L) White blood cell (WBC) count Ordered By: Garry Dillon on 08-21-2024 WBC (Bld) [#/Vol] 6.2 10*3/uL 4.4-11.0 [facility] CBC W/Diff, Automatedon 01-28 Absolute Lymph 1.82 X10 3/uL Normal 0.83-4.51 [facility] Comment on above: Order Comment: Order Date: 02/07/24 Order Info: 0184-1 - CBCD Performed By: #### L 500.4050, L501.9985, L100.0100, L509.1000, L500.4100, L506.1000 #### [facility] [address] [place], [address] Absolute Neut 3.7 X10 3/uL Normal 2.0-7.7 [facility] Comment on above: Order Comment: Order Date: 02/07/24 Order Info: 0184-1 - CBCD Performed By: #### L 500.4050, L501.9985, L100.0100, L509.1000, L500.4100, L506.1000 #### [facility] [address] [place], [address] Basophils/100 WBC (Bld) 0.5 % Normal 0-1 [facility] Comment on above: Order Comment: Order Date: 02/07/24 Order Info: 0184- - CBCD Performed By: #### L 500.4050, L501.9985, L100.0100, L509.1000, L500.4100, L506.1000 #### [facility] [address] [place], [address] Eosinophils/100 WBC (Bld) 2.8 % Normal 0-5 [facility] Comment on above: Order Comment: Order Date: 02/07/24 Order Info: 0184- - CBCD Performed By: #### L 500.4050, L501.9985, L100.0100, L509.1000, L500.4100, L506.1000 #### [facility] [address] [place], [address] Erythrocyte distribution width (RBC) [Ratio] 12.7 % Normal 11.6-14.6 [facility] Comment on above: Order Comment: Order Date: 02/07/24 Order Info: 0184-1 - CBCD Performed By: #### L 500.4050, L501.9985, L100.0100, L509.1000, L500.4100, L506.1000 #### [facility] [address] [place], [address] Hematocrit (Bld) [Volume fraction] 40.9 % Normal 37-47 [facility] Comment on above: Order Comment: Order Date: 02/07/24 Order Info: 0184-1 - CBCD Performed By: #### L 500.4050, L501.9985, L100.0100, L509.1000, L500.4100, L506.1000 #### [facility] [address] [place], [address] Hemoglobin (Bld) [Mass/Vol] 12.3 g/dL Normal 12.0-15.0 [facility] Comment on above: Order Comment: Order Date: 02/07/24 Order Info: 0184- - CBCD Performed By: #### L 500.4050, L501.9985, L100.0100, L509.1000, L500.4100, L506.1000 #### [facility] [address] [place], [address] IG% 0.300 Normal 0.0-0.9 [facility] Comment on above: Order Comment: Order Date: 02/07/24 Order Info: 0184- - CBCD Result Comment: IG% - Immature Granulocytes (promyelocytes, myelocytes and metamyelocytes) > 1% indicates that a LEFT SHIFT is Present. Performed By: #### L 500.4050, L501.9985, L100.0100, L509.1000, L500.4100, L506.1000 #### [facility] [address] [place], [address] Lymphocytes/100 WBC (Bld) 28.3 % Normal 19-41 [facility] Comment on above: Order Comment: Order Date: 02/07/24 Order Info: 0184-1 - CBCD Performed By: #### L 500.4050, L501.9985, L100.0100, L509.1000, L500.4100, L506.1000 #### [facility] [address] [place], [address] MCH (RBC) [Entitic mass] 28.8 pg Normal 27.0-32.0 [facility] Comment on above: Order Comment: Order Date: 02/07/24 Order Info: 0184-1 - CBCD Performed By: #### L 500.4050, L501.9985, L100.0100, L509.1000, L500.4100, L506.1000 #### [facility] [address] [place], [address] MCHC (RBC) [Mass/Vol] 30.1 g/dL Low 32-36 [facility] Comment on above: Order Comment: Order Date: 02/07/24 Order Info: 0184- - CBCD Performed By: #### L 500.4050, L501.9985, L100.0100, L509.1000, L500.4100, L506.1000 #### [facility] [address] [place], [address] MCV (RBC) [Entitic vol] 95.8 fL Normal 81-99 [facility] Comment on above: Order Comment: Order Date: 02/07/24 Order Info: 0184- - CBCD Performed By: #### L 500.4050, L501.9985, L100.0100, L509.1000, L500.4100, L506.1000 #### [facility] [address] [place], [address] Monocytes/100 WBC (Bld) 10.4 % High 0-10 [facility] Comment on above: Order Comment: Order Date: 02/07/24 Order Info: 0184-1 - CBCD Performed By: #### L 500.4050, L501.9985, L100.0100, L509.1000, L500.4100, L506.1000 #### [facility] [address] [place], [address] Neutrophils/100 WBC (Bld) 57.7 % Normal 47-70 [facility] Comment on above: Order Comment: Order Date: 02/07/24 Order Info: 0184-1 - CBCD Performed By: #### L 500.4050, L501.9985, L100.0100, L509.1000, L500.4100, L506.1000 #### [facility] [address] [place], [address] Nucleated RBC (Bld) [#/Vol] 0 10*3/uL Normal 0-5 [facility] Comment on above: Order Comment: Order Date: 02/07/24 Order Info: 0184- - CBCD Performed By: #### L 500.4050, L501.9985, L100.0100, L509.1000, L500.4100, L506.1000 #### [facility] [address] [place], [address] Platelet mean volume (Bld) [Entitic vol] 10.7 fL Normal 6.2-12.0 [facility] Comment on above: Order Comment: Order Date: 02/07/24 Order Info: 0184-1 - CBCD Performed By: #### L 500.4050, L501.9985, L100.0100, L509.1000, L500.4100, L506.1000 #### [facility] [address] [place], [address] Platelets (Bld) [#/Vol] 266 10*3/uL Normal 150-450 [facility] Comment on above: Order Comment: Order Date: 02/07/24 Order Info: 0184-1 - CBCD Performed By: #### L 500.4050, L501.9985, L100.0100, L509.1000, L500.4100, L506.1000 #### [facility] [address] [place], [address] RBC (Bld) [#/Vol] 4.27 10*6/uL Normal 4.2-5.4 [facility] Comment on above: Order Comment: Order Date: 02/07/24 Order Info: 0184-1 - CBCD Performed By: #### L 500.4050, L501.9985, L100.0100, L509.1000, L500.4100, L506.1000 #### [facility] [address] [place], [address] RDW SD 44.9 fl High 35.1-43.9 [facility] Comment on above: Order Comment: Order Date: 02/07/24 Order Info: 0184- - CBCD Performed By: #### L 500.4050, L501.9985, L100.0100, L509.1000, L500.4100, L506.1000 #### [facility] [address] [place], [address] WBC (Bld) [#/Vol] 6.4 10*3/uL Normal 4.4-11.0 [facility] Comment on above: Order Comment: Order Date: 02/07/24 Order Info: 0184 - CBCD Performed By: #### L 500.4050, L501.9985, L100.0100, L509.1000, L500.4100, L506.1000 #### [facility] [address] [place], [address] Comprehensive Metabolic Prof [facility] 02-07-2024 Albumin [Mass/Vol] 3.7 g/dL Normal 3.2-5.0 [facility] Comment on above: Order Comment: Order Date: 08/21/24 Order Info: 0786-1 - CMP Order Info: [id number] - LIPID Order Info: [id number] - MG Order Info: 3016-3 - TSH Order Info: 3024-7 - T4F Performed By: #### L 500.4100, L501.9985, L500.4050, L100.0100 #### [facility] [address] [place], [address] Albumin/Globulin [Mass ratio] 1.0 {ratio} Normal 0.9-2.4 [facility] Comment on above: Order Comment: Order Date: 08/21/24 Order Info: 86-1 - CMP Order Info: [id number] - LIPID Order Info: [id number] - MG Order Info: 3016-3 - TSH Order Info: 3024-7 - T4F Performed By: #### L 500.4100, L501.9985, L500.4050, L100.0100 #### [facility] [address] [place], [address] ALK P 95 U/L Normal 45-117 [facility] Comment on above: Order Comment: Order Date: 08/21/24 Order Info: 86-1 - CMP Order Info: [id number] - LIPID Order Info: [id number] - MG Order Info: [id number] - TSH Order Info: 3024-7 - T4F Performed By: #### L 500.4100, L501.9985, L500.4050, L100.0100 #### [facility] [address] [place], [address] ALT [Catalytic activity/Vol] 17 U/L Normal 13-56 [facility] Comment on above: Order Comment: Order Date: 08/21/24 Order Info: 86-1 - CMP Order Info: [id number] - LIPID Order Info: [id number] - MG Order Info: 3016-3 - TSH Order Info: 3024-7 - T4F Performed By: #### L 500.4100, L501.9985, L500.4050, L100.0100 #### [facility] [address] [place], [address] AST [Catalytic activity/Vol] 13 U/L Low 15-37 [facility] Comment on above: Order Comment: Order Date: 08/21/24 Order Info: 0786-1 - CMP Order Info: [id number] - LIPID Order Info: [id number] - MG Order Info: 3016-3 - TSH Order Info: 3024-7 - T4F Performed By: #### L 500.4100, L501.9985, L500.4050, L100.0100 #### [facility] [address] [place], [address] Bilirubin [Mass/Vol] 1.10 mg/dL High 0.20-1.00 [facility] Comment on above: Order Comment: Order Date: 08/21/24 Order Info: 0786-1 - CMP Order Info: [id number] - LIPID Order Info: [id number] - MG Order Info: 3016-3 - TSH Order Info: 3024-7 - T4F Result Comment: For patients on eltrombopag therapy, use of Dimension Jackson TBIL is not recommended. Performed By: #### L 500.4100, L501.9985, L500.4050, L100.0100 #### [facility] [address] [place], [address] BUN/CRE 15.9 RATIO Normal 10-20 [facility] Comment on above: Order Comment: Order Date: 08/21/24 Order Info: 0786-1 - CMP Order Info: [id number] - LIPID Order Info: [id number] - MG Order Info: 3016-3 - TSH Order Info: 3024-7 - T4F Performed By: #### L 500.4100, L501.9985, L500.4050, L100.0100 #### [facility] [address] [place], [address] CA,Total 9.4 mg/dL Normal 8.5-10.1 [facility] Comment on above: Order Comment: Order Date: 08/21/24 Order Info: 0786-1 - CMP Order Info: [id number] - LIPID Order Info: [id number] - MG Order Info: 3016-3 - TSH Order Info: 3024-7 - T4F Performed By: #### L 500.4100, L501.9985, L500.4050, L100.0100 #### [facility] [address] [place], [address] Chloride [Moles/Vol] 106 mmol/L Normal 98-107 [facility] Comment on above: Order Comment: Order Date: 08/21/24 Order Info: 86-1 - CMP Order Info: [id number] - LIPID Order Info: [id number] - MG Order Info: 3016-3 - TSH Order Info: 3024-7 - T4F Performed By: #### L 500.4100, L501.9985, L500.4050, L100.0100 #### [facility] [address] [place], [address] CO2 [Moles/Vol] 25.0 mmol/L Normal 21.0-32.0 [facility] Comment on above: Order Comment: Order Date: 08/21/24 Order Info: 86-1 - CMP Order Info: [id number] - LIPID Order Info: [id number] - MG Order Info: 3 - TSH Order Info: 3027 - T4F Performed By: #### L 500.4100, L501.9985, L500.4050, L100.0100 #### [facility] [address] [place], [address] Creatinine [Mass/Vol] 1.38 mg/dL High 0.55-1.02 [facility] Comment on above: Order Comment: Order Date: 08/21/24 Order Info: 86-1 - CMP Order Info: [id number] - LIPID Order Info: [id number] - MG Order Info: 3 - TSH Order Info: 3024-7 - T4F Result Comment: The validity of the calculated GFR GFRAA in patients over 70 years has not been determined. Clinical correlation is essential. Performed By: #### L 500.4100, L501.9985, L500.4050, L100.0100 #### [facility] [address] [place], [address] EST GFR - AA 48 mL/min Low >60 [facility] Comment on above: Order Comment: Order Date: 08/21/24 Order Info: 0786-1 - CMP Order Info: [id number] - LIPID Order Info: [id number] - MG Order Info: 3 - TSH Order Info: 7 - T4F Result Comment: Afri can Montenegrin GFR Calc Performed By: #### L 500.4100, L501.9985, L500.4050, L100.0100 #### [facility] [address] [place], [address] GAP 6 Normal 5-15 [facility] Comment on above: Order Comment: Order Date: 08/21/24 Order Info: 86-1 - CMP Order Info: [id number] - LIPID Order Info: [id number] - MG Order Info: 3 - TSH Order Info: 7 - T4F Performed By: #### L 500.4100, L501.9985, L500.4050, L100.0100 #### [facility] [address] [place], [address] GFR/1.73 sq M.predicted among non-blacks MDRD (S/P/Bld) [Vol rate/Area] 39 mL/min/{1.73_m2} Low >60 [facility] Comment on above: Order Comment: Order Date: 08/21/24 Order Info: 0786-1 - CMP Order Info: [id number] - LIPID Order Info: [id number] - MG Order Info: 3 - TSH Order Info: 7 - T4F Result Comment: Non- GFR Calc Performed By: #### L 500.4100, L501.9985, L500.4050, L100.0100 #### [facility] [address] [place], [address] Globulin (S) [Mass/Vol] 3.7 g/dL Normal 2.2-4.2 [facility] Comment on above: Order Comment: Order Date: 08/21/24 Order Info: 0786-1 - CMP Order Info: [id number] - LIPID Order Info: [id number] - MG Order Info: 3 - TSH Order Info: 3027 - T4F Performed By: #### L 500.4100, L501.9985, L500.4050, L100.0100 #### [facility] [address] [place], [address] Glucose [Mass/Vol] 106 mg/dL Normal 74-106 [facility] Comment on above: Order Comment: Order Date: 08/21/24 Order Info: 0786-1 - CMP Order Info: [id number] - LIPID Order Info: [id number] - MG Order Info: 3016-3 - TSH Order Info: 3024-7 - T4F Result Comment: Fast ing Glucose result from 100 to 125 mg/dL suggests IMPAIRED HOMEOSTASIS per A.D.A. criteria. Performed By: #### L 500.4100, L501.9985, L500.4050, L100.0100 #### [facility] [address] [place], [address] Potassium [Moles/Vol] 4.3 mmol/L Normal 3.5-5.1 [facility] Comment on above: Order Comment: Order Date: 08/21/24 Order Info: 785-1 - CMP Order Info: [id number] - LIPID Order Info: [id number] - MG Order Info: 3016-3 - TSH Order Info: 3024-7 - T4F Performed By: #### L 500.4100, L501.9985, L500.4050, L100.0100 #### [facility] [address] [place], [address] Sodium [Moles/Vol] 137 mmol/L Normal 136-145 [facility] Comment on above: Order Comment: Order Date: 08/21/24 Order Info: 0786-1 - CMP Order Info: [id number] - LIPID Order Info: [id number] - MG Order Info: 3016-3 - TSH Order Info: 3024-7 - T4F Performed By: #### L 500.4100, L501.9985, L500.4050, L100.0100 #### [facility] [address] [place], [address] T PROT 7.4 g/dL Normal 6.4-8.2 [facility] Comment on above: Order Comment: Order Date: 08/21/24 Order Info: 0786-1 - CMP Order Info: [id number] - LIPID Order Info: [id number] - MG Order Info: 3016-3 - TSH Order Info: 302-7 - T4F Performed By: #### L 500.4100, L501.9985, L500.4050, L100.0100 #### [facility] [address] [place], [address] Urea nitrogen [Mass/Vol] 22 mg/dL High 7-18 [facility] Comment on above: Order Comment: Order Date: 08/21/24 Order Info: 0786-1 - CMP Order Info: [id number] - LIPID Order Info: [id number] - MG Order Info: 6-3 - TSH Order Info: 302-7 - T4F Performed By: #### L 500.4100, L501.9985, L500.4050, L100.0100 #### [facility] [address] [place], [address] Hemoglobin A1con 02-07-2024 HbA1c (Bld) [Mass fraction] 6.3 % High 3.8-5.6 [facility] Comment on above: Order Comment: Order Date: 08/21/24 Order Info: 0786-1 - CMP Order Info: [id number] - LIPID Order Info: [id number] - MG Order Info: 3016-3 - TSH Order Info: 3024-7 - T4F Result Comment: Norm al < 5.7 % Prediabetic 5.7 - 6.4 % Diabetic >or= 6.5 % Please note range changes. Performed By: #### L 500.4100, L501.9985, L500.4050, L100.0100 #### [facility] [address] [place], [address] Lipid Profileon 02-07-2024 Cholesterol [Mass/Vol] 133 mg/dL Normal 200 [facility] Comment on above: Order Comment: Order Date: 08/21/24 Order Info: 0786-1 - CMP Order Info: [id number] - LIPID Order Info: [id number] - MG Order Info: 3 - TSH Order Info: 302-7 - T4F Result Comment: <200 mg/dL Desirable 200-240 mg/dL Borderline >240 mg/dL High Risk Performed By: #### L 500.4100, L501.9985, L500.4050, L100.0100 #### [facility] [address] [place], [address] Cholesterol in HDL [Mass/Vol] 50 mg/dL Normal [facility] Comment on above: Order Comment: Order Date: 08/21/24 Order Info: 07-1 - CMP Order Info: [id number] - LIPID Order Info: [id number] - MG Order Info: 3 - TSH Order Info: 7 - T4F Result Comment: The drugs N-Acetylcysteine and Metamizole may falsely depress this assay. Reference Range HDL <40 mg/dL Low HDL Cholesterol HDL >or= 60 mg/dL High HDL Cholesterol Performed By: #### L 500.4100, L501.9985, L500.4050, L100.0100 #### [facility] [address] [place], [address] Cholesterol in LDL [Mass/Vol] 48 mg/dL Normal 0-130 [facility] Comment on above: Order Comment: Order Date: 08/21/24 Order Info: 0786-1 - CMP Order Info: [id number] - LIPID Order Info: [id number] - MG Order Info: 3 - TSH Order Info: 7 - T4F Performed By: #### L 500.4100, L501.9985, L500.4050, L100.0100 #### [facility] [address] [place], [address] Cholesterol in VLDL [Mass/Vol] 35 mg/dL Normal 5-40 [facility] Comment on above: Order Comment: Order Date: 08/21/24 Order Info: 785- - CMP Order Info: - LIPID Order Info: [id number] - MG Order Info: 3015-3 - TSH Order Info: 7 - T4F Performed By: #### L 500.4100, L501.9985, L500.4050, L100.0100 #### [facility] [address] [place], [address] Triglyceride [Mass/Vol] 175 mg/dL Normal [facility] Comment on above: Order Comment: Order Date: 08/21/24 Order Info: 785- - CMP Order Info: [id number] - LIPID Order Info: [id number] - MG Order Info: 6-3 - TSH Order Info: 3027 - T4F Result Comment: The drugs N-Acetylcysteine and Metamizole may falsely depress this assay. Serum Triglycerides Reference Interval Normal <150 mg/dL Borderline high 150 - 199 mg/dL High 200 - 499 mg/dL Very High > or = 500 mg/dL Performed By: #### L 500.4100, L501.9985, L500.4050, L100.0100 #### [facility] [address] [place], [address] PTHINon 02-07-2024 PTH 122.6 pg/mL High 18.4-80.1 [facility] Comment on above: Order Comment: Order Date: 08/21/24 Order Info: 07- - CMP Order Info: [id number] - LIPID Order Info: [id number] - MG Order Info: 3015-3 - TSH Order Info: 7 - T4F Performed By: #### L 500.4100, L501.9985, L500.4050, L100.0100 #### [facility] [address] [place], [address] Vitamin D,25 Hydroxyon 02-06 Vitamin D 25-OH 57.3 ng/mL Normal [facility] [facility] Comment on above: Order Comment: Order Date: 08/21/24 Order Info: 0786-1 - CMP Order Info: [id number] - LIPID Order Info: [id number] - MG Order Info: 3016-3 - TSH Order Info: 3024-7 - T4F Result Comment: Vanessa min D 25(OH) Status Range Deficiency <20 ng/mL (50nmol/L) Insufficiency 20 - 30 ng/mL (50 - 75 nmol/L) Sufficiency 30 - 100 ng/mL (75 - 250 nmol/L) Toxicity >100 ng/mL (>250 nmol/L) Performed By: #### L 500.4100, L501.9985, L500.4050, L100.0100 #### [facility] [address] 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 She is now about 10 years from her surgery. She reports that she is doing very well with her shoulder is very pleased with the result has minimal pain and is able to do all of her functional activities. She reports low functional demand. Her SANE score was 90 points. I discussed with her getting new x-rays of the shoulder but she did not have an interest in doing this. Judd Sal M.D. Allergies As of Date: 11/21/2023 Noted Allergy Reaction CHLORTHALIDONE 09/28/2007 5 - Intolerance Comments: difficulty breathing and dizzy CODEINE 01/28/2005 Comments: VOMITING DOXYCYCLINE 08/17/2011 8 - GI Upset PENICILLINS 01/28/2005 10 - Anaphylaxis SULFA (SULFONAMIDE ANTIBIOTICS) 01/28/2005 5 - Intolerance Comments: Childhood, reaction uncertain VOLTAREN (DICLOFENAC SODIUM) 01/28/2005 16 - Unknown Date Reviewed: 04/02/2020 Reviewed by: Sherly Santiago (Machelle) - Fully Assessed Prescriptions as of 11/21/2023 - metoprolol tartrate, short acting, (LOPRESSOR) 100 mg tablet Take 1 tablet by mouth twice daily. - losartan (COZAAR) 100 mg tablet Take 1 tablet by mouth once daily. - diphenoxylate-atropi ne (LOMOTIL) 2.5-0.025 mg per tablet Take 1 tablet by mouth four times daily as needed for Diarrhea for up to 30 days. - mirtazapine (REMERON) 15 mg tablet Take 1 tablet by mouth daily at bedtime. - sertraline (ZOLOFT) 50 mg tablet TAKE 1 TABLET EVERY DAY - diphenoxylate-atropi ne (LOMOTIL) 2.5-0.025 mg per tablet Take 1 tablet by mouth four times daily for 90 days. - clotrimazole-betamet hasone (LOTRISONE) cream Apply 1 application to affected area twice daily. - VIT C/VIT E AC/LUT/COPPER/ZINC (PRESERVISION LUTEIN ORAL) Take by mouth. - Acidophilus-Bif Animalis (DIGESTIVE PROBIOTIC) 10 billion cell cap daily - omeprazole (PRILOSEC) 20 mg capsule Take 1 capsule by mouth daily before breakfast. 1/2 hr before meal. Problem List As Of Date 11/21/2023 Noted Resolved Essential hypertension, benign [I10] 03/25/2005 Headache [R51] 03/25/2005 03/31/2020 Myalgia and myositis, unspecified [PFD1521] 03/25/2005 03/31/2020 Osteoarthrosis, unspecified whether generalized*03/25/20 05 Anxiety disorder [F41.9] 03/25/2005 Chronic depression [F32.A] [...] 09/27/2013 02/27/2014 Chronic migraine without aura, with intractable*09/28/19 14 Chronic tension type headache [G44.229] 09/27/2013 Migraine without aura [G43.009] 02/27/2014 03/31/2020 Chronic renal insufficiency, stage 3 (moderate)* 9 Hypertensive kidney disease with stage 3 chroni*03/31/2020 Encounter Status:Closed by JUDD SAL on 11/21/23 Normal [facility] CBC W/Diff, Automatedon - Absolute Lymph 1.58 X10 3/uL Normal 0.83-4.51 [facility] Comment on above: Order Comment: Order Date: 10/11/23 Order Info: 0184-1 - CBCD Performed By: #### L 100.0100, L500.4050, L500.4100, L501.2300, L506.1000 #### [facility] [address] [place], [address] Absolute Neut 3.9 X10 3/uL Normal 2.0-7.7 [facility] Comment on above: Order Comment: Order Date: 10/11/23 Order Info: 0184 - CBCD Performed By: #### L 100.0100, L500.4050, L500.4100, L501.2300, L506.1000 #### [facility] [address] [place], [address] Basophils/100 WBC (Bld) 0.6 % Normal 0-1 [facility] Comment on above: Order Comment: Order Date: 10/11/23 Order Info: 0184- - CBCD Performed By: #### L 100.0100, L500.4050, L500.4100, L501.2300, L506.1000 #### [facility] [address] [place], [address] Eosinophils/100 WBC (Bld) 2.5 % Normal 0-5 [facility] Comment on above: Order Comment: Order Date: 10/11/23 Order Info: 0184- - CBCD Performed By: #### L 100.0100, L500.4050, L500.4100, L501.2300, L506.1000 #### [facility] [address] [place], [address] Erythrocyte distribution width (RBC) [Ratio] 12.8 % Normal 11.6-14.6 [facility] Comment on above: Order Comment: Order Date: 10/11/23 Order Info: 0184-1 - CBCD Performed By: #### L 100.0100, L500.4050, L500.4100, L501.2300, L506.1000 #### [facility] [address] [place], [address] Hematocrit (Bld) [Volume fraction] 39.7 % Normal 37-47 [facility] Comment on above: Order Comment: Order Date: 10/11/23 Order Info: 0184-1 - CBCD Performed By: #### L 100.0100, L500.4050, L500.4100, L501.2300, L506.1000 #### [facility] [address] [place], [address] Hemoglobin (Bld) [Mass/Vol] 12.4 g/dL Normal 12.0-15.0 [facility] Comment on above: Order Comment: Order Date: 10/11/23 Order Info: 0184-1 - CBCD Performed By: #### L 100.0100, L500.4050, L500.4100, L501.2300, L506.1000 #### [facility] [address] [place], [address] IG% 1.100 High 0.0-0.9 [facility] Comment on above: Order Comment: Order Date: 10/11/23 Order Info: 0184-1 - CBCD Result Comment: IG% - Immature Granulocytes (promyelocytes, myelocytes and metamyelocytes) > 1% indicates that a LEFT SHIFT is Present. Performed By: #### L 100.0100, L500.4050, L500.4100, L501.2300, L506.1000 #### [facility] [address] [place], [address] Lymphocytes/100 WBC (Bld) 25.0 % Normal 19-41 [facility] Comment on above: Order Comment: Order Date: 10/11/23 Order Info: 0184-1 - CBCD Performed By: #### L 100.0100, L500.4050, L500.4100, L501.2300, L506.1000 #### [facility] [address] [place], [address] MCH (RBC) [Entitic mass] 29.5 pg Normal 27.0-32.0 [facility] Comment on above: Order Comment: Order Date: 10/11/23 Order Info: 018- - CBCD Performed By: #### L 100.0100, L500.4050, L500.4100, L501.2300, L506.1000 #### [facility] [address] [place], [address] MCHC (RBC) [Mass/Vol] 31.2 g/dL Low 32-36 [facility] Comment on above: Order Comment: Order Date: 10/11/23 Order Info: 018- - CBCD Performed By: #### L 100.0100, L500.4050, L500.4100, L501.2300, L506.1000 #### [facility] [address] [place], [address] MCV (RBC) [Entitic vol] 94.5 fL Normal 81-99 [facility] Comment on above: Order Comment: Order Date: 10/11/23 Order Info: 0184- - CBCD Performed By: #### L 100.0100, L500.4050, L500.4100, L501.2300, L506.1000 #### [facility] [address] [place], [address] Monocytes/100 WBC (Bld) 9.7 % Normal 0-10 [facility] Comment on above: Order Comment: Order Date: 10/11/23 Order Info: 0184-1 - CBCD Performed By: #### L 100.0100, L500.4050, L500.4100, L501.2300, L506.1000 #### [facility] [address] [place], [address] Neutrophils/100 WBC (Bld) 61.1 % Normal 47-70 [facility] Comment on above: Order Comment: Order Date: 10/11/23 Order Info: 0184-1 - CBCD Performed By: #### L 100.0100, L500.4050, L500.4100, L501.2300, L506.1000 #### [facility] [address] [place], [address] Nucleated RBC (Bld) [#/Vol] 0 10*3/uL Normal 0-5 [facility] Comment on above: Order Comment: Order Date: 10/11/23 Order Info: 0184- - CBCD Performed By: #### L 100.0100, L500.4050, L500.4100, L501.2300, L506.1000 #### [facility] [address] [place], [address] Platelet mean volume (Bld) [Entitic vol] 10.5 fL Normal 6.2-12.0 [facility] Comment on above: Order Comment: Order Date: 10/11/23 Order Info: 0184- - CBCD Performed By: #### L 100.0100, L500.4050, L500.4100, L501.2300, L506.1000 #### [facility] [address] [place], [address] Platelets (Bld) [#/Vol] 257 10*3/uL Normal 150-450 [facility] Comment on above: Order Comment: Order Date: 10/11/23 Order Info: 0184-1 - CBCD Performed By: #### L 100.0100, L500.4050, L500.4100, L501.2300, L506.1000 #### [facility] [address] [place], [address] RBC (Bld) [#/Vol] 4.20 10*6/uL Normal 4.2-5.4 [facility] Comment on above: Order Comment: Order Date: 10/11/23 Order Info: 0184-1 - CBCD Performed By: #### L 100.0100, L500.4050, L500.4100, L501.2300, L506.1000 #### [facility] [address] [place], [address] RDW SD 44.2 fl High 35.1-43.9 [facility] Comment on above: Order Comment: Order Date: 10/11/23 Order Info: 0184- - CBCD Performed By: #### L 100.0100, L500.4050, L500.4100, L501.2300, L506.1000 #### [facility] [address] [place], [address] WBC (Bld) [#/Vol] 6.3 10*3/uL Normal 4.4-11.0 [facility] Comment on above: Order Comment: Order Date: 10/11/23 Order Info: 0184-1 - CBCD Performed By: #### L 100.0100, L500.4050, L500.4100, L501.2300, L506.1000 #### [facility] [address] [place], [address] Comprehensive Metabolic Prof [facility] 10-11-2023 Albumin [Mass/Vol] 3.6 g/dL Normal 3.2-5.0 [facility] Comment on above: Order Comment: Order Date: 10/11/23 Order Info: 0786-1 - CMP Order Info: [id number] - LIPID Order Info: [id number] - PHOS Performed By: #### L 100.0100, L500.4050, L500.4100, L501.2300, L506.1000 #### [facility] [address] [place], [place], [address] Albumin/Globulin [Mass ratio] 1.0 {ratio} Normal 0.9-2.4 [facility] Comment on above: Order Comment: Order Date: 10/11/23 Order Info: 0786- - CMP Order Info: [id number] - LIPID Order Info: [id number] - PHOS Performed By: #### L 100.0100, L500.4050, L500.4100, L501.2300, L506.1000 #### [facility] [address] [place], [address] ALK P 95 U/L Normal 45-117 [facility] Comment on above: Order Comment: Order Date: 10/11/23 Order Info: 0786- - CMP Order Info: [id number] - LIPID Order Info: [id number] - PHOS Performed By: #### L 100.0100, L500.4050, L500.4100, L501.2300, L506.1000 #### [facility] [address] [place], [address] ALT [Catalytic activity/Vol] 18 U/L Normal 13-56 [facility] Comment on above: Order Comment: Order Date: 10/11/23 Order Info: 0786- - CMP Order Info: [id number] - LIPID Order Info: [id number] - PHOS Performed By: #### L 100.0100, L500.4050, L500.4100, L501.2300, L506.1000 #### [facility] [address] [place], [address] AST [Catalytic activity/Vol] 19 U/L Normal 15-37 [facility] Comment on above: Order Comment: Order Date: 10/11/23 Order Info: 0786- - CMP Order Info: [id number] - LIPID Order Info: [id number] - PHOS Performed By: #### L 100.0100, L500.4050, L500.4100, L501.2300, L506.1000 #### [facility] [address] [place], [address] Bilirubin [Mass/Vol] 0.90 mg/dL Normal 0.20-1.00 [facility] Comment on above: Order Comment: Order Date: 10/11/23 Order Info: 07-1 - CMP Order Info: [id number] - LIPID Order Info: 2777- - PHOS Result Comment: For patients on eltrombopag therapy, use of Dimension Jackson TBIL is not recommended. Performed By: #### L 100.0100, L500.4050, L500.4100, L501.2300, L506.1000 #### [facility] [address] [place], [address] BUN/CRE 19.8 RATIO Normal 10-20 [facility] Comment on above: Order Comment: Order Date: 10/11/23 Order Info: 785-05 - CMP Order Info: [id number] - LIPID Order Info: [id number] - PHOS Performed By: #### L 100.0100, L500.4050, L500.4100, L501.2300, L506.1000 #### [facility] [address] [place], [address] CA,Total 9.2 mg/dL Normal 8.5-10.1 [facility] [place] Comment on above: Order Comment: Order Date: 10/11/23 Order Info: [id number] - CMP Order Info: [id number] - LIPID Order Info: [id number] - PHOS Performed By: #### L 100.0100, L500.4050, L500.4100, L501.2300, [id number] #### [facility] [address] [place], [address] Chloride [Moles/Vol] 109 mmol/L High 98-107 [facility] Comment on above: Order Comment: Order Date: 10/11/23 Order Info: [id number] - CMP Order Info: [id number] - LIPID Order Info: [id number] - PHOS Performed By: #### L 100.0100, L500.4050, L500.4100, L501.2300, [id number] #### [facility] [address] [place], [address] CO2 [Moles/Vol] 25.0 mmol/L Normal 21.0-32.0 [facility] [place] Comment on above: Order Comment: Order Date: 10/11/23 Order Info: [id number] - CMP Order Info: [id number] - LIPID Order Info: [id number] - PHOS Performed By: #### L 100.0100, L500.4050, L500.4100, L501.2300, L506.1000 #### [facility] [address] [place], [address] Creatinine [Mass/Vol] 1.21 mg/dL High 0.55-1.02 [facility] Comment on above: Order Comment: Order Date: 10/11/23 Order Info: 07 - CMP Order Info: [id number] - LIPID Order Info: [id number] - PHOS Result Comment: The validity of the calculated GFR GFRAA in patients over 70 years has not been determined. Clinical correlation is essential. Performed By: #### L 100.0100, L500.4050, L500.4100, L501.2300, L506.1000 #### [facility] [place] [facility] [address] [place], [address] EST GFR - AA 55 mL/min Low >60 [facility] Comment on above: Order Comment: Order Date: 10/11/23 Order Info: [id number]- - CMP Order Info: [id number] - LIPID Order Info: [id number] - PHOS Result Comment: Afri can Mont[place] GFR Calc Performed By: #### L 100.0100, L500.4050, L500.4100, L501.2300, L506.1000 #### [facility] [address] [place], [address] GAP 6 Normal 5-15 [facility] [place] Comment on above: Order Comment: Order Date: 10/11/23 Order Info: [id number]- - CMP Order Info: [id number] - LIPID Order Info: [id number] - PHOS Performed By: #### L 100.0100, L500.4050, L500.4100, L501.2300, L506.1000 #### [facility] [address] [place], [address] GFR/1.73 sq M.predicted among non-blacks MDRD (S/P/Bld) [Vol rate/Area] 46 mL/min/{1.73_m2} Low >60 [facility] [place] Comment on above: Order Comment: Order Date: 10/11/23 Order Info: 07- - CMP Order Info: [id number] - LIPID Order Info: [id number] - PHOS Result Comment: Non- GFR Calc Performed By: #### L 100.0100, L500.4050, L500.4100, L501.2300, L506.1000 #### [facility] [place] [facility] [address] [place], [address] Globulin (S) [Mass/Vol] 3.7 g/dL Normal 2.2-4.2 [facility] Comment on above: Order Comment: Order Date: 10/11/23 Order Info: [id number]- - CMP Order Info: [id number] - LIPID Order Info: [id number] - PHOS Performed By: #### L 100.0100, L500.4050, L500.4100, L501.2300, [id number] #### [facility] [place] [facility] [address] [place], [address] Glucose [Mass/Vol] 108 mg/dL High 74-106 [facility] Comment on above: Order Comment: Order Date: 10/11/23 Order Info: [id number]- - CMP Order Info: [id number] - LIPID Order Info: [id number] - PHOS Result Comment: Fast ing Glucose result from 100 to 125 mg/dL suggests IMPAIRED HOMEOSTASIS per A.D.A. criteria. Performed By: #### L 100.0100, L500.4050, L500.4100, L501.2300, L506.1000 #### [facility] [place] [facility] [address] [place], [address] Potassium [Moles/Vol] 4.5 mmol/L Normal 3.5-5.1 [facility] Comment on above: Order Comment: Order Date: 10/11/23 Order Info: [id number] - CMP Order Info: [id number] - LIPID Order Info: [id number] - PHOS Performed By: #### L 100.0100, L500.4050, L500.4100, L501.2300, L506.1000 #### [facility] [place] [facility] [address] [place], [address] Sodium [Moles/Vol] 140 mmol/L Normal 136-145 [facility] Comment on above: Order Comment: Order Date: 10/11/23 Order Info: [id number] - CMP Order Info: [id number] - LIPID Order Info: [id number] - PHOS Performed By: #### L 100.0100, L500.4050, L500.4100, L501.2300, L506.1000 #### [facility] [place] [facility] [address] [place], [address] T PROT 7.3 g/dL Normal 6.4-8.2 [facility] [place] Comment on above: Order Comment: Order Date: 10/11/23 Order Info: [id number] - CMP Order Info: [id number] - LIPID Order Info: [id number] - PHOS Performed By: #### L 100.0100, L500.4050, L500.4100, L501.2300, L506.1000 #### [facility] [place] [facility] [address] [place], [address] Urea nitrogen [Mass/Vol] 24 mg/dL High 7-18 [facility] [place] Comment on above: Order Comment: Order Date: 10/11/23 Order Info: [id number] - CMP Order Info: - LIPID Order Info: [id number] - PHOS Performed By: #### L 100.0100, L500.4050, L500.4100, L501.2300, [id number] #### [facility] [place] [facility] [address] [place], [address] Lipid Profileon 10-11-2023 Cholesterol [Mass/Vol] 130 mg/dL Normal 200 [facility] Comment on above: Order Comment: Order Date: 10/11/23 Order Info: [id number] - CMP Order Info: - LIPID Order Info: [id number] - PHOS Result Comment: <200 mg/dL Desirable 200-240 mg/dL Borderline >240 mg/dL High Risk Performed By: #### L 100.0100, L500.4050, L500.4100, L501.2300, L506.1000 #### [facility] [place] [facility] [address] [place], [address] Cholesterol in HDL [Mass/Vol] 49 mg/dL Normal [facility] [place] Comment on above: Order Comment: Order Date: 10/11/23 Order Info: [id number] - CMP Order Info: - LIPID Order Info: [id number] - PHOS Result Comment: The drugs N-Acetylcysteine and Metamizole may falsely depress this assay. Reference Range HDL <40 mg/dL Low HDL Cholesterol HDL >or= 60 mg/dL High HDL Cholesterol Performed By: #### L 100.0100, L500.4050, L500.4100, L501.2300, L506.1000 #### [facility] [place] [facility] [address] [place], [address] Cholesterol in LDL [Mass/Vol] 58 mg/dL Normal 0-130 [facility] [place] Comment on above: Order Comment: Order Date: 10/11/23 Order Info: 07 - CMP Order Info: - LIPID Order Info: [id number] - PHOS Performed By: #### L 100.0100, L500.4050, L500.4100, L501.2300, L506.1000 #### [facility] [place] [facility] [address] [place], [address] Cholesterol in VLDL [Mass/Vol] 23 mg/dL Normal 5-40 [facility] [place] Comment on above: Order Comment: Order Date: 10/11/23 Order Info: [id number]- - CMP Order Info: [id number] - LIPID Order Info: [id number] - PHOS Performed By: #### L 100.0100, L500.4050, L500.4100, L501.2300, L506.1000 #### [facility] [place] [facility] [address] [place], [address] Triglyceride [Mass/Vol] 114 mg/dL Normal [facility] Comment on above: Order Comment: Order Date: 10/11/23 Order Info: [id number] - CMP Order Info: [id number] - LIPID Order Info: [id number] - PHOS Result Comment: The drugs N-Acetylcysteine and Metamizole may falsely depress this assay. Serum Triglycerides Reference Interval Normal <150 mg/dL Borderline high 150 - 199 mg/dL High 200 - 499 mg/dL Very High > or = 500 mg/dL Performed By: #### L 100.0100, L500.4050, L500.4100, L501.2300, L506.1000 #### [facility] [place] [facility] [address] [place], [address] Phosphoruson 10-11-2023 Phosphate [Mass/Vol] 4.0 mg/dL Normal 2.5-4.9 [facility] Comment on above: Order Comment: Order Date: 10/11/23 Order Info: [id number] - CMP Order Info: [id number] - LIPID Order Info: [id number] - PHOS Performed By: #### L 100.0100, L500.4050, L500.4100, L501.2300, L506.1000 #### [facility] [place] [facility] [address], [address] Vitamin D,25 Hydroxyon 10-10 Vitamin D 25-OH 107.7 ng/mL Normal [facility] [place] Comment on above: Order Comment: Order Date: 10/11/23 Order Info: [id number] - [id number] Result Comment: Vanessa min D 25(OH) Status Range Deficiency <20 ng/mL (50nmol/L) Insufficiency 20 - 30 ng/mL (50 - 75 nmol/L) Sufficiency 30 - 100 ng/mL (75 - 250 nmol/L) Toxicity >100 ng/mL (>250 nmol/L) Evidence suggests that patients undergoing fluorescein dye angiography can retain small amounts of fluorescein in the body for up to 48 to 72 hours post-treatment. In the cases of patients with renal insufficiency, retention could be much longer. Samples containing fluorescein can produce falsely elevated values when tested with the Advia Centaur Vitamin D assay. With fluorescein interference, observed Vitamin D values can be as high as >150 ng/mL (>375 nmol/L). Samples should be resubmitted post fluorescein clearance to ensure there is no interference with Vitamin D test results. Performed By: #### L 100.0100, L500.4050, L500.4100, L501.2300, L506.1000 #### [facility] [place] [facility] [address] [place], [address] Absolute lymphocyte countOrd ered By: Garry Dillon on 06-14-2023 Lymphocytes Auto (Unsp spec) [#/Vol] 1.86 10*3/uL 0.83-4.51 [facility] [place] Automated lymphocyte count a s percentage of total leukocytesOrdered By: Garry Dillon on 06-14-2023 Lymphocytes/100 WBC Auto (Unsp spec) 32.2 % 19-41 [facility] Basophil percentageOrdered B y: Garry Dillon on 06-14-2023 Basophil percentage 3.3 mg/dL 2.5-4.9 [facility] Basophils/100 WBC (Bld) 0.9 % 0-1 [facility] Bilirubin [Mass/Vol] 0.90 mg/dL 0.20-1.00 [facility] Comment on above: For patients on eltr ombopag therapy, use of Dimension [place] TBIL is not recommended. Chloride [Moles/Vol] 109 mmol/L 98-107 [facility] Cholesterol [Mass/Vol] 132 mg/dL <200 [facility] Comment on above: <200 mg/dL Desirable 200-240 mg/dL Borderline >240 mg/dL High Risk Eosinophils/100 WBC (Bld) 2.2 % 0-5 [facility] Glucose [Mass/Vol] 112 mg/dL 74-106 [facility] Comment on above: Fasting Glucose resu lt from 100 to 125 mg/dL suggests IMPAIRED HOMEOSTASIS per A.D.A. criteria. Hemoglobin (Bld) [Mass/Vol] 12.6 g/dL 12.0-15.0 [facility] Monocytes/100 WBC (Bld) 11.4 % 0-10 [facility] Neutrophils (Bld) [#/Vol] 3.1 10*3/uL 2.0-7.7 [facility] Neutrophils/100 WBC (Bld) 52.8 % 47-70 [facility] Potassium [Moles/Vol] 4.7 mmol/L 3.5-5.1 [facility] Protein [Mass/Vol] 7.2 g/dL 6.4-8.2 [facility] Sodium [Moles/Vol] 141 mmol/L 136-145 [facility] Triglyceride [Mass/Vol] 149 mg/dL <199 [facility] Comment on above: The drugs N-Acetylcy steine and Metamizole may falsely depress this assay.Serum Triglycerides Reference Interval Normal <150 mg/dL Borderline high 150 - 199 mg/dL High 200 - 499 mg/dL Very High > or = 500 mg/dL WBC (Bld) [#/Vol] 5.8 10*3/uL 4.4-11.0 [facility] Determination of erythrocyte mean corpuscular volume (MCV)Ordered By: Garry Dillon on 06-14-2023 MCV (RBC) [Entitic vol] 95.2 fL 81-99 [facility] Erythrocyte distribution wid th ratioOrdered By: Garry Dillon on 06-14-2023 Erythrocyte distribution width (RBC) [Ratio] 13.0 % 11.6-14.6 [facility] Erythrocyte distribution wid th standard deviationOrdered By: Garry Dillon on 06-14-2023 Erythrocyte distribution width (RBC) [Entitic vol] 45.1 fL 35.1-43.9 [facility] Hematocrit Auto (Bld) [Volum e fraction]Ordered By: Garry Dillon on 06-14-2023 Hematocrit (Bld) [Volume fraction] 40.0 % 37-47 [facility] High density lipoprotein (HD L) measurementOrdered By: Garry Dillon on 06-14-2023 Cholesterol in HDL (Body fld) [Mass/Vol] 48 mg/dL >40 [facility] Comment on above: The drugs N-Acetylcy steine and Metamizole may falsely depress this assay. Reference Range HDL <40 mg/dL Low HDL Cholesterol HDL >or= 60 mg/dL High HDL Cholesterol Immature granulocytes/100 WB C Auto (Bld)Ordered By: Garry Dillon on 06-14-2023 Immature granulocytes/100 WBC (Bld) 0.500 % 0.0-0.9 [facility] Comment on above: IG% - Immature Granu locytes (promyelocytes, myelocytes and metamyelocytes) > 1% indicates that a LEFT SHIFT is Present. Intact parathyroid hormone ( iPTH) measurementOrdered By: Garry Dillon on 06-14-2023 Parathyrin.intact (Tissue fine needle aspirate) [Mass/Vol] 115.8 pg/mL 18.4-80.1 [facility] - Chemistry and C hemistry - challengeOrdered By: Garry Dillon on 06-14-2023 Albumin/Globulin [Mass ratio] 1.0 {ratio} 0.9-2.4 [facility] ALP [Catalytic activity/Vol] 92 U/L 45-117 [facility] ALT [Catalytic activity/Vol] 15 U/L 13-56 [facility] CO2 [Moles/Vol] 27.0 mmol/L 21.0-32.0 [facility] Globulin (S) [Mass/Vol] 3.6 g/dL 2.2-4.2 [facility] Magnesium [Mass/Vol] 2.4 mg/dL 1.6-2.6 [facility] Urea nitrogen/Creatinine [Mass ratio] 15.7 mg/mg 10-20 [facility] - Hematology and Cell countsOrdered By: Garry Dillon on 06-14-2023 MCH (RBC) [Entitic mass] 30.0 pg 27.0-32.0 [facility] MCHC (RBC) [Mass/Vol] 31.5 g/dL 32-36 [facility] Nucleated RBC/100 WBC (Bld) [Ratio] 0 % 0-5 [facility] Platelets (Bld) [#/Vol] 265 10*3/uL 150-450 [facility] Low density lipoprotein (LDL ) cholesterol measurementOrdered By: Garry Dillon on 06-14-2023 Cholesterol in LDL (Body fld) [Moles/Vol] 54 mg/dL 0-130 [facility] No Panel InformationOrdered By: Garry Dillon on 06-14-2023 Estimated GFR (MDRD) Amer 49 mL/min >60 [facility] Comment on above: GFR Calc Estimated GFR (MDRD) Non-Af Amer 41 mL/min >60 [facility] Comment on above: Non- GFR Calc Vitamin D 25-Hydroxy 97.9 ng/mL [facility] Comment on above: Vitamin D 25(OH) Sta tus Range Deficiency <20 ng/mL (50nmol/L) Insufficiency 20 - 30 ng/mL (50 - 75 nmol/L) Sufficiency 30 - 100 ng/mL (75 - 250 nmol/L) Toxicity >100 ng/mL (>250 nmol/L) Platelet mean volume Jose R-Ec ker (Bld) [Entitic vol]Ordered By: Garry Dillon on 06-14-2023 Platelet mean volume (Bld) [Entitic vol] 10.4 fL 6.2-12.0 [facility] RBC Auto (Bld) [#/Vol]Ordere d By: Garry Dillon on 06-14-2023 RBC (Bld) [#/Vol] 4.20 10*6/uL 4.2-5.4 [facility] Serum or plasma calcium diann urement (mass/volume)Ordered By: Garry Dillon on 06-14-2023 Calcium [Mass/Vol] 9.3 mg/dL 8.5-10.1 [facility] Serum or plasma creatinine m easurement (mass/volume)Ordered By: Garry Dillon on 06-14-2023 Creatinine [Mass/Vol] 1.34 mg/dL 0.55-1.02 [facility] Comment on above: The validity of the calculated GFR & GFRAA in patients over 70 years has not been determined. Clinical correlation is essential. Serum or plasma thyroid stim ulating hormone (TSH) measurement (units/volume)Ordered By: Garry Dillon on 06-14-2023 TSH Qn 2.17 uIU/mL 0.358-3.74 [facility] Serum or plasma urea nitroge n measurement (mass/volume)Ordered By: Garry Dillon on 06-14-2023 Urea nitrogen [Mass/Vol] 21 mg/dL 7-18 [facility] Thin prep Papanicolaou smear with manual screeningOrdered By: Garry Dillon on 06-14-2023 Thin prep Papanicolaou smear with manual screening 3.6 g/dL 3.2-5.0 [facility] Thin prep Papanicolaou smear with manual screening 24 U/L 15-37 [facility] Thin prep Papanicolaou smear with manual screening 5 5-15 [facility] Very low density lipoprotein (VLDL) cholesterol measurementOrdered By: Garry Dillon on 06-14-2023 Cholesterol in VLDL Calc [Moles/Vol] 30 mg/dL 5-40 [facility] Whole blood hemoglobin A1c/t otal hemoglobin ratio (mass fraction)Ordered By: Garry Dillon on 06-14-2023 HbA1c (Bld) [Mass fraction] 6.2 % 3.8-5.6 [facility] Comment on above: Normal < 5.7 % Predi abetic 5.7 - 6.4 % Diabetic >or= 6.5 % Please note range changes. Absolute lymphocyte countOrd ered By: Garry Dillon on 12-08-2022 Lymphocytes Auto (Unsp spec) [#/Vol] 1.68 10*3/uL 0.83-4.51 [facility] Basophil percentageOrdered B y: Garry Dillon on 12-08-2022 Basophils/100 WBC (Bld) 0.8 % 0-1 [facility] Bilirubin [Mass/Vol] 0.80 mg/dL 0.20-1.00 [facility] Comment on above: For patients on eltr ombopag therapy, use of Dimension [place] TBIL is not recommended. Chloride [Moles/Vol] 108 mmol/L 98-107 [facility] Cholesterol [Mass/Vol] 122 mg/dL <200 [facility] Comment on above: <200 mg/dL Desirable 200-240 mg/dL Borderline >240 mg/dL High Risk Eosinophils/100 WBC (Bld) 2.6 % 0-5 [facility] Glucose [Mass/Vol] 112 mg/dL 74-106 [facility] Comment on above: Fasting Glucose resu lt from 100 to 125 mg/dL suggests IMPAIRED HOMEOSTASIS per A.D.A. criteria. Neutrophils (Bld) [#/Vol] 3.9 10*3/uL 2.0-7.7 [facility] Neutrophils/100 WBC (Bld) 60.0 % 47-70 [facility] Potassium [Moles/Vol] 4.3 mmol/L 3.5-5.1 [facility] Protein [Mass/Vol] 7.2 g/dL 6.4-8.2 [facility] Sodium [Moles/Vol] 139 mmol/L 136-145 [facility] Triglyceride [Mass/Vol] 166 mg/dL <199 [facility] Comment on above: The drugs N-Acetylcy steine and Metamizole may falsely depress this assay.Serum Triglycerides Reference Interval Normal <150 mg/dL Borderline high 150 - 199 mg/dL High 200 - 499 mg/dL Very High > or = 500 mg/dL WBC (Bld) [#/Vol] 6.5 10*3/uL 4.4-11.0 [facility] Blood erythrocytes count (nu mber/volume)Ordered By: Garry Dillon on 12-08-2022 RBC (Bld) [#/Vol] 4.25 10*6/uL 4.2-5.4 [facility] Blood hemoglobin measurement (mass/volume)Ordered By: Garry Dillon on 12-08-2022 Hemoglobin (Bld) [Mass/Vol] 12.4 g/dL 12.0-15.0 [facility] Blood lymphocytes/100 leukoc ytesOrdered By: Garry Dillon on 12-08-2022 Lymphocytes/100 WBC (Bld) 25.7 % 19-41 [facility] Blood monocytes/100 leukocyt esOrdered By: Garry Dillon on 12-08-2022 Monocytes/100 WBC (Bld) 10.3 % 0-10 [facility] Blood platelet mean volumeOr dered By: Garry Dillon on 12-08-2022 Platelet mean volume (Bld) [Entitic vol] 10.8 fL 6.2-12.0 [facility] Determination of erythrocyte mean corpuscular volume (MCV)Ordered By: Garry Dillon on 12-08-2022 MCV (RBC) [Entitic vol] 95.5 fL 81-99 [facility] Hematocrit Auto (Bld) [Volum e fraction]Ordered By: Garry Dillon on 12-08-2022 Hematocrit (Bld) [Volume fraction] 40.6 % 37-47 [facility] - Chemistry and C hemistry - challengeOrdered By: Garry Dillon on 12-08-2022 ALP [Catalytic activity/Vol] 101 U/L 45-117 [facility] ALT [Catalytic activity/Vol] 17 U/L 13-56 [facility] CO2 [Moles/Vol] 25.0 mmol/L 21.0-32.0 [facility] Globulin (S) [Mass/Vol] 3.7 g/dL 2.2-4.2 [facility] Urea nitrogen/Creatinine [Mass ratio] 17.2 mg/mg 10-20 [facility] - Hematology and Cell countsOrdered By: Garry Dillon on 12-08-2022 Erythrocyte distribution width (RBC) [Entitic vol] 44.1 fL 35.1-43.9 [facility] Erythrocyte distribution width (RBC) [Ratio] 12.6 % 11.6-14.6 [facility] Immature granulocytes/100 WBC (Bld) 0.600 % 0.0-0.9 [facility] Comment on above: IG% - Immature Granu locytes (promyelocytes, myelocytes and metamyelocytes) > 1% indicates that a LEFT SHIFT is Present. MCH (RBC) [Entitic mass] 29.2 pg 27.0-32.0 [facility] Nucleated RBC/100 WBC (Bld) [Ratio] 0 % 0-5 [facility] MCHC Auto (RBC) [Mass/Vol]Or dered By: Garry Dillon on 12-08-2022 MCHC (RBC) [Mass/Vol] 30.5 g/dL 32-36 [facility] No Panel InformationOrdered By: Garry Dillon on 12-08-2022 Estimated GFR (MDRD) Amer 49 mL/min >60 [facility] Comment on above: GFR Calc Estimated GFR (MDRD) Non-Af Amer 41 mL/min >60 [facility] Comment on above: Non- GFR Calc Vitamin D 25-Hydroxy 92.2 ng/mL [facility] Comment on above: Vitamin D 25(OH) Sta tus Range Deficiency <20 ng/mL (50nmol/L) Insufficiency 20 - 30 ng/mL (50 - 75 nmol/L) Sufficiency 30 - 100 ng/mL (75 - 250 nmol/L) Toxicity >100 ng/mL (>250 nmol/L) Platelets bldOrdered By: Emerson Dillon on 12-08-2022 Platelets (Bld) [#/Vol] 270 10*3/uL 150-450 [facility] Serum or plasma albumin diann urement (mass/volume)Ordered By: Garry Dillon on 12-08-2022 Albumin [Mass/Vol] 3.5 g/dL 3.2-5.0 [facility] Serum or plasma albumin/glob ulin mass ratioOrdered By: Garry Dillon on 12-08-2022 Albumin/Globulin [Mass ratio] 0.9 {ratio} 0.9-2.4 [facility] Serum or plasma calcium diann urement (mass/volume)Ordered By: Garry Dillon on 12-08-2022 Calcium [Mass/Vol] 9.3 mg/dL 8.5-10.1 [facility] Serum or plasma cholesterol in HDL measurement (mass/volume)Ordered By: Garry Dillon on 12-08-2022 Cholesterol in HDL [Mass/Vol] 47 mg/dL >40 [facility] Comment on above: The drugs N-Acetylcy steine and Metamizole may falsely depress this assay. Reference Range HDL <40 mg/dL Low HDL Cholesterol HDL >or= 60 mg/dL High HDL Cholesterol Serum or plasma cholesterol in VLDL measurement (mass/volume)Ordered By: Garry Dillon on 12-08-2022 Cholesterol in VLDL [Mass/Vol] 33 mg/dL 5-40 [facility] Serum or plasma creatinine m easurement (mass/volume)Ordered By: Garry Dillon on 12-08-2022 Creatinine [Mass/Vol] 1.34 mg/dL 0.55-1.02 [facility] Comment on above: The validity of the calculated GFR & GFRAA in patients over 70 years has not been determined. Clinical correlation is essential. Serum or plasma low density lipoprotein (LDL) cholesterol measurement (mass/volume)Ordered By: Garry Dillon on 12-08-2022 Cholesterol in LDL [Mass/Vol] 42 mg/dL 0-130 [facility] Serum or plasma urea nitroge n measurement (mass/volume)Ordered By: Garry Dillon on 12-08-2022 Urea nitrogen [Mass/Vol] 23 mg/dL 7-18 [facility] Thin prep Papanicolaou smear with manual screeningOrdered By: Garry Dillon on 12-08-2022 Thin prep Papanicolaou smear with manual screening 19 U/L 15-37 [facility] Thin prep Papanicolaou smear with manual screening 6 5-15 [facility] Whole blood hemoglobin A1c/t otal hemoglobin ratio (mass fraction)Ordered By: Garry Dillon on 12-08-2022 HbA1c (Bld) [Mass fraction] 6.5 % 3.8-5.6 [facility] Comment on above: Normal < 5.7 % Predi abetic 5.7 - 6.4 % Diabetic >or= 6.5 % Please note range changes. Absolute lymphocyte countOrd ered By: Dr. Dillon on 08-11-2022 Lymphocytes Auto (Unsp spec) [#/Vol] 1.76 10*3/uL 0.83-4.51 [facility] Basophil percentageOrdered B y: Dr. Dillon on 08-11-2022 Basophil percentage 3.9 mg/dL 2.5-4.9 [facility] Basophils/100 WBC (Bld) 0.6 % 0-1 [facility] Bilirubin [Mass/Vol] 0.80 mg/dL 0.20-1.00 [facility] Comment on above: For patients on eltr ombopag therapy, use of Dimension [place] TBIL is not recommended. Chloride [Moles/Vol] 106 mmol/L 98-107 [facility] Cholesterol [Mass/Vol] 122 mg/dL <200 [facility] Comment on above: <200 mg/dL Desirable 200-240 mg/dL Borderline >240 mg/dL High Risk Eosinophils/100 WBC (Bld) 2.2 % 0-5 [facility] Glucose [Mass/Vol] 105 mg/dL 74-106 [facility] Comment on above: Fasting Glucose resu lt from 100 to 125 mg/dL suggests IMPAIRED HOMEOSTASIS per A.D.A. criteria. Neutrophils (Bld) [#/Vol] 4.2 10*3/uL 2.0-7.7 [facility] Neutrophils/100 WBC (Bld) 59.8 % 47-70 [facility] Potassium [Moles/Vol] 4.4 mmol/L 3.5-5.1 [facility] Protein [Mass/Vol] 7.1 g/dL 6.4-8.2 [facility] Sodium [Moles/Vol] 139 mmol/L 136-145 [facility] Triglyceride [Mass/Vol] 159 mg/dL <199 [facility] Comment on above: The drugs N-Acetylcy steine and Metamizole may falsely depress this assay.Serum Triglycerides Reference Interval Normal <150 mg/dL Borderline high 150 - 199 mg/dL High 200 - 499 mg/dL Very High > or = 500 mg/dL WBC (Bld) [#/Vol] 6.9 10*3/uL 4.4-11.0 [facility] Blood erythrocytes count (nu mber/volume)Ordered By: Dr. Dillon on 08-11-2022 RBC (Bld) [#/Vol] 4.21 10*6/uL 4.2-5.4 [facility] Blood hemoglobin measurement (mass/volume)Ordered By: Dr. Dillon on 08-11-2022 Hemoglobin (Bld) [Mass/Vol] 12.7 g/dL 12.0-15.0 [facility] Blood lymphocytes/100 leukoc ytesOrdered By: Dr. Dillon on 08-11-2022 Lymphocytes/100 WBC (Bld) 25.4 % 19-41 [facility] Blood monocytes/100 leukocyt esOrdered By: Dr. Dillon on 08-11-2022 Monocytes/100 WBC (Bld) 11.7 % 0-10 [facility] Blood platelet mean volumeOr dered By: Dr. Dillon on 08-11-2022 Platelet mean volume (Bld) [Entitic vol] 11.1 fL 6.2-12.0 [facility] Determination of erythrocyte mean corpuscular volume (MCV)Ordered By: Dr. Dillon on 08-11-2022 MCV (RBC) [Entitic vol] 96.4 fL 81-99 [facility] Hematocrit Auto (Bld) [Volum e fraction]Ordered By: Dr. Dillon on 08-11-2022 Hematocrit (Bld) [Volume fraction] 40.6 % 37-47 [facility] Laboratory - Chemistry and C hemistry - challengeOrdered By: Dr. Dillon on 08-11-2022 ALP [Catalytic activity/Vol] 85 U/L 45-117 [facility] ALT [Catalytic activity/Vol] 19 U/L 13-56 [facility] CO2 [Moles/Vol] 24.0 mmol/L 21.0-32.0 [facility] Globulin (S) [Mass/Vol] 3.5 g/dL 2.2-4.2 [facility] Urea nitrogen/Creatinine [Mass ratio] 16.8 mg/mg 10-20 [facility] Laboratory - Hematology and Cell countsOrdered By: Dr. Dillon on 08-11-2022 Erythrocyte distribution width (RBC) [Entitic vol] 46.2 fL 35.1-43.9 [facility] Erythrocyte distribution width (RBC) [Ratio] 13.0 % 11.6-14.6 [facility] Immature granulocytes/100 WBC (Bld) 0.300 % 0.0-0.9 [facility] Comment on above: IG% - Immature Granu locytes (promyelocytes, myelocytes and metamyelocytes) > 1% indicates that a LEFT SHIFT is Present. MCH (RBC) [Entitic mass] 30.2 pg 27.0-32.0 [facility] Nucleated RBC/100 WBC (Bld) [Ratio] 0 % 0-5 [facility] Auto (RBC) [Mass/Vol]Or dered By: Dr. Dillon on 08-11-2022 MCHC (RBC) [Mass/Vol] 31.3 g/dL 32-36 [facility] No Panel InformationOrdered By: Dr. Dillon on 08-11-2022 Estimated GFR (MDRD) Amer 54 mL/min >60 [facility] Comment on above: GFR Calc Estimated GFR (MDRD) Non-Af Amer 44 mL/min >60 [facility] Comment on above: Non- GFR Calc Parathyroid Hormone (Intact) 96.9 pg/mL 18.4-80.1 [facility] Platelets bldOrdered By: Dr. Dillon on 08-11-2022 Platelets (Bld) [#/Vol] 277 10*3/uL 150-450 [facility] Serum or plasma albumin diann urement (mass/volume)Ordered By: Dr. Dillon on 08-11-2022 Albumin [Mass/Vol] 3.6 g/dL 3.2-5.0 [facility] Serum or plasma albumin/glob ulin mass ratioOrdered By: Dr. Dillon on 08-11-2022 Albumin/Globulin [Mass ratio] 1.0 {ratio} 0.9-2.4 [facility] Serum or plasma calcium diann urement (mass/volume)Ordered By: Dr. Dillon on 08-11-2022 Calcium [Mass/Vol] 9.7 mg/dL 8.5-10.1 [facility] Serum or plasma cholesterol in HDL measurement (mass/volume)Ordered By: Dr. Dillon on 08-11-2022 Cholesterol in HDL [Mass/Vol] 46 mg/dL >40 [facility] Comment on above: The drugs N-Acetylcy steine and Metamizole may falsely depress this assay. Reference Range HDL <40 mg/dL Low HDL Cholesterol HDL >or= 60 mg/dL High HDL Cholesterol Serum or plasma cholesterol in VLDL measurement (mass/volume)Ordered By: Dr. Dillon on 08-11-2022 Cholesterol in VLDL [Mass/Vol] 32 mg/dL 5-40 [facility] Serum or plasma creatinine m easurement (mass/volume)Ordered By: Dr. Dillon on 08-11-2022 Creatinine [Mass/Vol] 1.25 mg/dL 0.55-1.02 [facility] Comment on above: The validity of the calculated GFR & GFRAA in patients over 70 years has not been determined. Clinical correlation is essential. Serum or plasma low density lipoprotein (LDL) cholesterol measurement (mass/volume)Ordered By: Dr. Dillon on 08-11-2022 Cholesterol in LDL [Mass/Vol] 44 mg/dL 0-130 [facility] Serum or plasma urea nitroge n measurement (mass/volume)Ordered By: Dr. Dillon on 08-11-2022 Urea nitrogen [Mass/Vol] 21 mg/dL 7-18 [facility] Thin prep Papanicolaou smear with manual screeningOrdered By: Dr. Dillon on 08-11-2022 Thin prep Papanicolaou smear with manual screening 23 U/L 15-37 [facility] Thin prep Papanicolaou smear with manual screening 9 5-15 [facility] Whole blood hemoglobin A1c/t otal hemoglobin ratio (mass fraction)Ordered By: Dr. Dillon on 08-11-2022 HbA1c (Bld) [Mass fraction] 6.4 % 3.8-5.6 [facility] Comment on above: Normal < 5.7 % Predi abetic 5.7 - 6.4 % Diabetic >or= 6.5 % Please note range changes. Absolute lymphocyte counton 04-16-2022 Lymphocytes Auto (Unsp spec) [#/Vol] 1.57 10*3/uL 0.83-4.51 [facility] Work Phone: Basophil percentageon 2021 Basophil percentage 4.0 mg/dL 2.5-4.9 [facility] Work Phone: Basophils/100 WBC (Bld) 0.6 % 0-1 [facility] Work Phone: Bilirubin [Mass/Vol] 0.80 mg/dL 0.20-1.00 [facility] Work Phone: Comment on above: For patients on eltr ombopag therapy, use of Dimension [place] TBIL is not recommended. Chloride [Moles/Vol] 107 mmol/L 98-[address] [facility] Work Phone: [phone] Cholesterol [Mass/Vol] 133 mg/dL <200 [facility] Work Phone: [phone] Comment on above: <200 mg/dL Desirable 200-240 mg/dL Borderline >240 mg/dL High Risk Eosinophils/100 WBC (Bld) 1.5 % 0-5 [facility] Work Phone: [phone] Glucose [Mass/Vol] 103 mg/dL 74-106 [facility] Work Phone: [phone] Comment on above: Fasting Glucose resu lt from 100 to 125 mg/dL suggests IMPAIRED HOMEOSTASIS per A.D.A. criteria. Neutrophils (Bld) [#/Vol] 4.3 10*3/uL 2.0-7.7 [facility] Work Phone: [phone] Neutrophils/100 WBC (Bld) 65.6 % 47-70 [facility] Work Phone: [phone] Potassium [Moles/Vol] 4.3 mmol/L 3.5-5.1 [facility] Work Phone: [phone] Protein [Mass/Vol] 7.3 g/dL 6.4-8.2 [facility] Work Phone: [phone] Sodium [Moles/Vol] 139 mmol/L 136-145 [facility] Work Phone: [phone] Triglyceride [Mass/Vol] 147 mg/dL <199 [facility] Work Phone: [phone] Comment on above: The drugs N-Acetylcy steine and Metamizole may falsely depress this assay.Serum Triglycerides Reference Interval Normal <150 mg/dL Borderline high 150 - 199 mg/dL High 200 - 499 mg/dL Very High > or = 500 mg/dL WBC (Bld) [#/Vol] 6.6 10*3/uL 4.4-11.0 [facility] Work Phone: Blood erythrocytes count (nu mber/volume)on 04-16-2022 RBC (Bld) [#/Vol] 4.40 10*6/uL 4.2-5.4 [facility] Work Phone: Blood hemoglobin measurement (mass/volume)on 04-16-2022 Hemoglobin (Bld) [Mass/Vol] 13.4 g/dL 12.0-15.0 [facility] Work Phone: Blood lymphocytes/100 leukoc yteson 04-16-2022 Lymphocytes/100 WBC (Bld) 23.8 % 19-41 [facility] Work Phone: Blood monocytes/100 leukocyt eson 04-16-2022 Monocytes/100 WBC (Bld) 8.2 % 0-10 [facility] Work Phone: Blood platelet mean volumeon 04-16-2022 Platelet mean volume (Bld) [Entitic vol] 10.7 fL 6.2-12.0 [facility] Work Phone: Determination of erythrocyte mean corpuscular volume (MCV)on 04-16-2022 MCV (RBC) [Entitic vol] 96.4 fL 81-99 [facility] Work Phone: Hematocrit Auto (Bld) [Volum e fraction]on 04-16-2022 Hematocrit (Bld) [Volume fraction] 42.4 % 37-47 [facility] Work Phone: Laboratory - Chemistry and C hemistry - challengeon 04-16-2022 ALP [Catalytic activity/Vol] 95 U/L 45-117 [facility] Work Phone: ALT [Catalytic activity/Vol] 22 U/L 13-56 [facility] Work Phone: CO2 [Moles/Vol] 22.0 mmol/L 21.0-32.0 [facility] Work Phone: Globulin (S) [Mass/Vol] 3.7 g/dL 2.2-4.2 [facility] Work Phone: Urea nitrogen/Creatinine [Mass ratio] 20.9 mg/mg 10-20 [facility] Work Phone: Laboratory - Hematology and Cell countson 04-16-2022 Erythrocyte distribution width (RBC) [Entitic vol] 45.6 fL 35.1-43.9 [facility] Work Phone: Erythrocyte distribution width (RBC) [Ratio] 12.6 % 11.6-14.6 [facility] Work Phone: Immature granulocytes/100 WBC (Bld) 0.300 % 0.0-0.9 [facility] Work Phone: Comment on above: IG% - Immature Granu locytes (promyelocytes, myelocytes and metamyelocytes) > 1% indicates that a LEFT SHIFT is Present. MCH (RBC) [Entitic mass] 30.5 pg 27.0-32.0 [facility] Work Phone: Nucleated RBC/100 WBC (Bld) [Ratio] 0 % 0-5 [facility] Work Phone: MCHC Auto (RBC) [Mass/Vol]on 04-16-2022 MCHC (RBC) [Mass/Vol] 31.6 g/dL 32-36 [facility] Work Phone: No Panel Informationon 04-16 Estimated GFR (MDRD) Amer 59 mL/min >60 [facility] Work Phone: Comment on above: GFR Calc Estimated GFR (MDRD) Non-Af Amer 49 mL/min >60 [facility] Work Phone: Comment on above: Non- GFR Calc Parathyroid Hormone (Intact) 115.3 pg/mL 18.4-80.1 [facility] Work Phone: Thyroid Stimulating Hormone (TSH) 1.92 uIU/mL 0.358-3.74 [facility] Work Phone: Platelets bldon 04-16-2022 Platelets (Bld) [#/Vol] 272 10*3/uL 150-450 [facility] Work Phone: Serum or plasma albumin diann urement (mass/volume)on 04-16-2022 Albumin [Mass/Vol] 3.6 g/dL 3.2-5.0 [facility] Work Phone: Serum or plasma albumin/glob ulin mass ratioon 04-16-2022 Albumin/Globulin [Mass ratio] 1.0 {ratio} 0.9-2.4 [facility] Work Phone: Serum or plasma calcium diann urement (mass/volume)on 04-16-2022 Calcium [Mass/Vol] 8.8 mg/dL 8.5-10.1 [facility] Work Phone: Serum or plasma cholesterol in HDL measurement (mass/volume)on 04-16-2022 Cholesterol in HDL [Mass/Vol] 51 mg/dL >40 [facility] Work Phone: Comment on above: The drugs N-Acetylcy steine and Metamizole may falsely depress this assay. Reference Range HDL <40 mg/dL Low HDL Cholesterol HDL >or= 60 mg/dL High HDL Cholesterol Serum or plasma cholesterol in VLDL measurement (mass/volume)on 04-16-2022 Cholesterol in VLDL [Mass/Vol] 29 mg/dL 5-40 [facility] Work Phone: Serum or plasma creatinine m easurement (mass/volume)on 04-16-2022 Creatinine [Mass/Vol] 1.15 mg/dL 0.55-1.02 [facility] Work Phone: Comment on above: The validity of the calculated GFR & GFRAA in patients over 70 years has not been determined. Clinical correlation is essential. Serum or plasma low density lipoprotein (LDL) cholesterol measurement (mass/volume)on 04-16-2022 Cholesterol in LDL [Mass/Vol] 53 mg/dL 0-130 [facility] Work Phone: Serum or plasma urea nitroge n measurement (mass/volume)on 04-16-2022 Urea nitrogen [Mass/Vol] 24 mg/dL 7-18 [facility] Work Phone: Thin prep Papanicolaou smear with manual screeningon 04-16-2022 Thin prep Papanicolaou smear with manual screening 19 U/L 15-37 [facility] Work Phone: Thin prep Papanicolaou smear with manual screening 10 5-15 [facility] Work Phone: Whole blood hemoglobin A1c/t otal hemoglobin ratio (mass fraction)on 04-16-2022 HbA1c (Bld) [Mass fraction] 6.5 % 3.8-5.6 [facility] Work Phone: Comment on above: Normal < 5.7 % Predi abetic 5.7 - 6.4 % Diabetic >or= 6.5 % Please note range changes. Absolute lymphocyte counton 09-10-2021 Lymphocytes Auto (Unsp spec) [#/Vol] 2.05 10*3/uL 0.83-4.51 [facility] Work Phone: Basophil percentageon 2021 Basophil percentage 3.8 mg/dL 2.5-4.9 [facility] Work Phone: Basophils/100 WBC (Bld) 0.5 % 0-1 [facility] Work Phone: Bilirubin [Mass/Vol] 0.80 mg/dL 0.20-1.00 [facility] Work Phone: Comment on above: For patients on eltr ombopag therapy, use of Dimension [place] TBIL is not recommended. Chloride [Moles/Vol] 108 mmol/L 98-107 [facility] Work Phone: Cholesterol [Mass/Vol] 143 mg/dL <200 [facility] Work Phone: Comment on above: <200 mg/dL Desirable 200-240 mg/dL Borderline >240 mg/dL High Risk Eosinophils/100 WBC (Bld) 1.3 % 0-5 [facility] Work Phone: Glucose [Mass/Vol] 110 mg/dL 74-106 [facility] Work Phone: Comment on above: Fasting Glucose resu lt from 100 to 125 mg/dL suggests IMPAIRED HOMEOSTASIS per A.D.A. criteria. Neutrophils (Bld) [#/Vol] 4.7 10*3/uL 2.0-7.7 [facility] Work Phone: Neutrophils/100 WBC (Bld) 61.2 % 47-70 [facility] Work Phone: Potassium [Moles/Vol] 4.5 mmol/L 3.5-5.1 [facility] Work Phone: Protein [Mass/Vol] 7.8 g/dL 6.4-8.2 [facility] Work Phone: Sodium [Moles/Vol] 138 mmol/L 136-145 [facility] Work Phone: Triglyceride [Mass/Vol] 122 mg/dL [facility] Work Phone: Comment on above: The drugs N-Acetylcy steine and Metamizole may falsely depress this assay.Serum Triglycerides Reference Interval Normal <150 mg/dL Borderline high 150 - 199 mg/dL High 200 - 499 mg/dL Very High > or = 500 mg/dL WBC (Bld) [#/Vol] 7.7 10*3/uL 4.4-11.0 [facility] Work Phone: Blood erythrocytes count (nu mber/volume)on 09-10-2021 RBC (Bld) [#/Vol] 4.64 10*6/uL 4.2-5.4 [facility] Work Phone: Blood hemoglobin measurement (mass/volume)on 09-10-2021 Hemoglobin (Bld) [Mass/Vol] 13.9 g/dL 12.0-15.0 [facility] Work Phone: Blood lymphocytes/100 leukoc yteson 09-10-2021 Lymphocytes/100 WBC (Bld) 26.6 % 19-41 [facility] Work Phone: Blood monocytes/100 leukocyt eson 09-10-2021 Monocytes/100 WBC (Bld) 10.0 % 0-10 [facility] Work Phone: Blood platelet mean volumeon 09-10-2021 Platelet mean volume (Bld) [Entitic vol] 10.6 fL 6.2-12.0 [facility] Work Phone: Determination of erythrocyte mean corpuscular volume (MCV)on 09-10-2021 MCV (RBC) [Entitic vol] 94.4 fL 81-99 [facility] Work Phone: Hematocrit Auto (Bld) [Volum e fraction]on 09-10-2021 Hematocrit (Bld) [Volume fraction] 43.8 % 37-47 [facility] Work Phone: Laboratory - Chemistry and C hemistry - challengeon 09-10-2021 ALP [Catalytic activity/Vol] 105 U/L 45-117 [facility] Work Phone: ALT [Catalytic activity/Vol] 20 U/L 13-56 [facility] Work Phone: CO2 [Moles/Vol] 25.0 mmol/L 21.0-32.0 [facility] Work Phone: Globulin (S) [Mass/Vol] 4.0 g/dL 2.2-4.2 [facility] Work Phone: Urea nitrogen/Creatinine [Mass ratio] 23.9 mg/mg 10-20 [facility] Work Phone: Laboratory - Hematology and Cell countson 09-10-2021 Erythrocyte distribution width (RBC) [Entitic vol] 43.7 fL 35.1-43.9 [facility] Work Phone: Erythrocyte distribution width (RBC) [Ratio] 12.5 % 11.6-14.6 [facility] Work Phone: Immature granulocytes/100 WBC (Bld) 0.400 % 0.0-0.9 [facility] Work Phone: Comment on above: IG% - Immature Granu locytes (promyelocytes, myelocytes and metamyelocytes) > 1% indicates that a LEFT SHIFT is Present. MCH (RBC) [Entitic mass] 30.0 pg 27.0-32.0 [facility] Work Phone: Nucleated RBC/100 WBC (Bld) [Ratio] 0 % 0-5 [facility] Work Phone: MCHC Auto (RBC) [Mass/Vol]on 09-10-2021 MCHC (RBC) [Mass/Vol] 31.7 g/dL 32-36 [facility] Work Phone: No Panel Informationon 09-10 Estimated GFR (MDRD) Amer 58 mL/min >60 [facility] Work Phone: Comment on above: GFR Calc Estimated GFR (MDRD) Non-Af Amer 48 mL/min >60 [facility] Work Phone: Comment on above: Non- GFR Calc Parathyroid Hormone (Intact) 120.5 pg/mL 18.4-80.1 [facility] Work Phone: Thyroid Stimulating Hormone (TSH) 2.36 uIU/mL 0.358-3.74 [facility] Work Phone: Vitamin D 25-Hydroxy 17.0 ng/mL [facility] Work Phone: Comment on above: Vitamin D 25(OH) Sta tus Range Deficiency <20 ng/mL (50nmol/L) Insufficiency 20 - 30 ng/mL (50 - 75 nmol/L) Sufficiency 30 - 100 ng/mL (75 - 250 nmol/L) Toxicity >100 ng/mL (>250 nmol/L) Platelets bldon 09-10-2021 Platelets (Bld) [#/Vol] 315 10*3/uL 150-450 [facility] Work Phone: Serum or plasma albumin diann urement (mass/volume)on 09-10-2021 Albumin [Mass/Vol] 3.8 g/dL 3.2-5.0 [facility] Work Phone: Serum or plasma albumin/glob ulin mass ratioon 09-10-2021 Albumin/Globulin [Mass ratio] 1.0 {ratio} 0.9-2.4 [facility] Work Phone: Serum or plasma calcium diann urement (mass/volume)on 09-10-2021 Calcium [Mass/Vol] 9.2 mg/dL 8.5-10.1 [facility] Work Phone: Serum or plasma cholesterol in HDL measurement (mass/volume)on 09-10-2021 Cholesterol in HDL [Mass/Vol] 50 mg/dL [facility] Work Phone: Comment on above: The drugs N-Acetylcy steine and Metamizole may falsely depress this assay. Reference Range HDL <40 mg/dL Low HDL Cholesterol HDL >or= 60 mg/dL High HDL Cholesterol Serum or plasma cholesterol in VLDL measurement (mass/volume)on 09-10-2021 Cholesterol in VLDL [Mass/Vol] 24 mg/dL 5-40 [facility] Work Phone: Serum or plasma creatinine m easurement (mass/volume)on 09-10-2021 Creatinine [Mass/Vol] 1.17 mg/dL 0.55-1.02 [facility] Work Phone: Comment on above: The validity of the calculated GFR & GFRAA in patients over 70 years has not been determined. Clinical correlation is essential. Serum or plasma low density lipoprotein (LDL) cholesterol measurement (mass/volume)on 09-10-2021 Cholesterol in LDL [Mass/Vol] 69 mg/dL 0-130 [facility] Work Phone: Serum or plasma urea nitroge n measurement (mass/volume)on 09-10-2021 Urea nitrogen [Mass/Vol] 28 mg/dL 7-18 [facility] Work Phone: Thin prep Papanicolaou smear with manual screeningon 09-10-2021 Thin prep Papanicolaou smear with manual screening 17 U/L 15-37 [facility] Work Phone: Thin prep Papanicolaou smear with manual screening 5 5-15 [facility] Work Phone: Whole blood hemoglobin A1c/t otal hemoglobin ratio (mass fraction)on 09-10-2021 HbA1c (Bld) [Mass fraction] 6.4 % 3.8-5.6 [facility] Work Phone: Comment on above: Normal < 5.7 % Predi abetic 5.7 - 6.4 % Diabetic >or= 6.5 % Please note range changes. Vital Signs Date Time Vital Sign Value Performing Clinician Faci lity 11-23-2022 09:31-0400 Body temperature 97.2 [degF] Dr. Garry Dillon Work Phone: [facility] 11-23-2022 09:31-0400 Diastolic blood pressure 56 mm[Hg] Dr. Garry Dillon Work Phone: [facility] 11-23-2022 09:31-0400 Heart rate 67 /min Dr. Garry Dillon Work Phone: [facility] 11-23-2022 09:31-0400 Respiratory rate 18 /min Dr. Garry Dillon Work Phone: [facility] 11-23-2022 09:31-0400 SaO2% (BldA) [Mass fraction] 100 % Dr. Garry Dillon Work Phone: [facility] 11-23-2022 09:31-0400 Systolic blood pressure 132 mm[Hg] Dr. Garry Dillon Work Phone: [facility] 11-23-2022 08:12-0400 Body height 167.[address] Garry Dillon Work Phone: [facility] 11-23-2022 08:12-0400 Body mass index (BMI) [Ratio] 38.5 kg/m2 Dr. Garry Dillon Work Phone: [facility] 11-23-2022 08:12-0400 Body weight 108.[address] Garry Dillon Work Phone: [facility] 10-14-2022 13:24-0400 Body mass index (BMI) [Ratio] 39 kg/m2 Dr. Garry Dillon Work Phone: [facility] 10-14-2022 13:24-0400 Body temperature 97.4 [degF] Dr. Garry Dillon Work Phone: [facility] 10-14-2022 13:24-0400 Body weight 109.[address] Garry Dillon Work Phone: [facility] 10-14-2022 13:24-0400 Diastolic blood pressure 67 mm[Hg] Dr. Garry Dillon Work Phone: [facility] 10-14-2022 13:24-0400 Heart rate 66 /min Dr. Garry Dillon Work Phone: [facility] 10-14-2022 13:24-0400 Respiratory rate 17 /min Dr. Garry Dillon Work Phone: [facility] 10-14-2022 13:24-0400 SaO2% (BldA) [Mass fraction] 94 % Dr. Garry Dillon Work Phone: [facility] 10-14-2022 13:24-0400 Systolic blood pressure 112 mm[Hg] Dr. Garry Dillon Work Phone: [facility] 10-13-2021 10:31-0400 Body temperature 98.1 [degF] Dr. Garry Dillon Work Phone: [facility] Work Phone: 10-13-2021 10:31-0400 Diastolic blood pressure 57 mm[Hg] Dr. Garry Dillon Work Phone: [facility] Work Phone: 10-13-2021 10:31-0400 Heart rate 64 /min Dr. Garry Dillon Work Phone: [facility] Work Phone: 10-13-2021 10:31-0400 Respiratory rate 16 /min Dr. Garry Dillon Work Phone: [facility] Work Phone: 10-13-2021 10:31-0400 SaO2% (BldA) [Mass fraction] 99 % Dr. Garry Dillon Work Phone: [facility] Work Phone: 10-13-2021 10:31-0400 Systolic blood pressure 119 mm[Hg] Dr. Garry Dillon Work Phone: [facility] Work Phone: 10-13-2021 08:25-0400 Body height 167.[address] Garry Dillon Work Phone: [facility] Work Phone: 10-13-2021 08:25-0400 Body mass index (BMI) [Ratio] 37.5 kg/m2 Dr. Garry Dillon Work Phone: [facility] Work Phone: 10-13-2021 08:25-0400 Body weight 105.[address] Garry Dillon Work Phone: [facility] Work Phone: 10-05-2021 14:38-0400 Body mass index (BMI) [Ratio] 38.1 kg/m2 Dr. Garry Dillon Work Phone: [facility] Work Phone: 10-05-2021 14:38-0400 Body temperature 97.9 [degF] Dr. Garry Dillon Work Phone: [facility] Work Phone: 10-05-2021 14:38-0400 Body weight 107.[address] Garry Dillon Work Phone: [facility] Work Phone: 10-05-2021 14:38-0400 Diastolic blood pressure 78 mm[Hg] Dr. Garry Dillon Work Phone: [facility] Work Phone: 10-05-2021 14:38-0400 Heart rate 54 /min Dr. Garry Dillon Work Phone: [facility] Work Phone: 10-05-2021 14:38-0400 Respiratory rate 18 /min Dr. Garry Dillon Work Phone: [facility] Work Phone: 10-05-2021 14:38-0400 SaO2% (BldA) [Mass fraction] 97 % Dr. Garry Dillon Work Phone: [facility] Work Phone: 10-05-2021 14:38-0400 Systolic blood pressure 123 mm[Hg] Dr. Garry Dillon Work Phone: [facility] Work Phone: Encounters Encounter Date Encounter Type Care Provider Facility Start: 08-21-2024 End: 08-21-[address] Garry Dillon MD Work Phone: [facility] Work Phone: Start: 08-21-2024 End: 08-21-[address] Garry Dillon MD -[facility] Start: 08-21-2024 End: 08-21-2024 ambulatory Garry Dillon Facility:[facility] Start: 02-07-2024 End: 02-07-2024 ambulatory Garry Dillon Facility:[facility] Start: 11-21-2023 Telephone encounter Judd lópez MD, PhD Work Phone: Orthopaedics Start: 10-11-2023 End: 10-11-2023 ambulatory Garry Dillon Facility:[facility] Start: 06-14-2023 End: 06-14-2023 ambulatory [facility] Work Phone: Start: 06-14-2023 End: 06-14-2023 Patient encounter procedure [facility] Start: 12-08-2022 End: 12-08-[address] Garry Dillon Work Phone: [facility] Work Phone: Start: 12-08-2022 End: 12-08-[address] Garry Dillon Work Phone: [facility] Start: 11-23-2022 Non-patient / Non-visit Dr. Gill Dillon Work Phone: [facility] Start: 11-23-2022 End: 11-23-2022 Admission to same day surgery center Dr. Garry Dillon Work Phone: [facility] Start: 11-23-2022 End: 11-23-[address] Garry Dillon Work Phone: [facility] Work Phone: Start: 10-14-2022 End: 10-14-[address] Garry Dillon Work Phone: [facility] Start: 08-11-2022 End: 08-11-2022 ambulatory [facility] Work Phone: Start: 08-11-2022 End: 08-11-2022 Patient encounter procedure [facility] Start: 04-16-2022 End: 04-16-2022 ambulatory [facility] Work Phone: Start: 04-16-2022 End: 04-16-2022 Patient encounter procedure [facility] Start: 10-13-2021 Non-patient / Non-visit Dr. Gill Dillon Work Phone: [facility] Start: 10-13-2021 End: 10-13-2021 Admission to same day surgery center Dr. Garry Dillon Work Phone: [facility] Start: 10-05-2021 End: 10-05-[address] Garry Dillon Work Phone: [facility] Start: 09-10-2021 End: 09-10-2021 Patient encounter procedure [facility] Start: 12-26-2008 End: 05-16-2019 Patient encounter status Judd Sal MD, PhD Work Phone: [facility] Procedures Date Procedure Procedure Detail Performing Clinician Start: 11-23-[address] Garry ramos Work Phone: Start: 08-11-2022 X-ray of lumbar spin e, two or three views Start: 04-16-2022 Radiologic examinati on of knee Start: 10-13-[address] Garry ramos Work Phone: Plan of Treatment Date Care Activity Detail Author Start: 01-29-2024 Influenza vaccination Influenz a Vaccine (Season Ended) [facility] Start: 05-30-2023 Advance Directive Discussion Advance Directive Discussion [facility] Start: 05-30-2023 Behavioral Health Screening Behavioral Health Screening [facility] Start: 04-02-2023 Diabetes Screening Diabetes Screenin g [facility] Start: 01-28-2023 Covid-19 Vaccine ( season) Covid-19 Vaccine ( season) [facility] Start: 11-23-2022 Colonoscopy w/biopsy single/multiple COLONOSCOPY AND BIOPSY [facility] Start: 11-23-2022 Colsc flx w/rmvl of tumor polyp lesion snare tq COLONOSCOPY W/LESION REMOVAL [facility] Start: 11-23-2022 Patient discharge [facility] Start: 04-25-2021 Screening for malign ant neoplasm of colon Fecal Occult Blood [facility] Start: 09-16-2018 Urine microalbumin profile DTaP,Tdap,Td Vaccine (3 - Td or Tdap) [facility] Start: 2005 RSV Vaccine (1 - 1-d ose 60+ series) RSV Vaccine (1 - 1-dose 60+ series) [facility] Start: 10-08-1995 Shingrix Vaccine (1 of 2) Shingrix Vaccine (1 of 2) [facility] Patient referral [facility] Work Phone: Immunizations Immunization Date Immunization Notes Care Provider Erick lyons 04-17-2018 influenza virus vacc ine, unspecified formulation Judd Sal MD, PhD Work Phone: [facility] 09-04-2014 pneumococcal conjuga te vaccine, 13 valent Judd Sal MD, PhD Work Phone: [facility] 08-13-2011 pneumococcal polysaccharide vaccine, 23 valent Judd Sal MD, PhD Work Phone: [facility] 09-16-2008 tetanus toxoid, redu garima diphtheria toxoid, and acellular pertussis vaccine, adsorbed Judd Sal MD, PhD Work Phone: [facility] Work Phone: 10-23-1997 diphtheria and tetan us toxoids, adsorbed for pediatric use Judd Sal MD, PhD Work Phone: [facility] Work Phone: Payers Date Payer Category Payer Medicare [id number] 2023 Self-pay [id number] Unknown [id number]. [id number] Unknown [id number] Unknown [id number] .. [id number] Social History Date Type Detail Facility Start: 11-10-2020 End: 11-19-2022 Tobacco smoking status NHIS Unknown if ever smoked [facility] Start: 1945 Sex Assigned At Female W [facility] Start: 10-26-2012 End: 11-19-2022 Tobacco smoking status NHIS Never smoked tobacco [facility] Start: 10-26-2012 Tobacco use and exposure Smokeless tobacco non-user [facility] Start: 04-02-2020 Alcohol intake Current non-dr technical illustrations map inker of alcohol (finding) [facility] Start: 04-02-2020 End: 05-06-2020 History of Social function [facility] Start: 04-02-2020 End: 05-06-2020 Tobacco use panel [facility] Adult Depression Screening Assessment 0 [facility] Start: 1945 Sex Assigned At Not on file [facility] Start: 08-27-2024 Sex Female (finding) [facility] NEGATED: Highlighted row [facility] Medical Equipment Procedure Code Equipment Code Equipment Origin al Text Equipment Identifier Dates Colonoscopy RESOLUTION 360 CLIP 235 CM FDA Start: 10-13-2021 Colonoscopy RESOLUTION 360 CLIP 235 CM FDA Start: 10-13-2021 Colonoscopy RESOLUTION 360 CLIP 235 CM FDA Start: 10-13-2021 Colonoscopy RESOLUTION 360 CLIP 235 CM FDA Start: 10-13-2021 Colonoscopy RESOLUTION 360 CLIP 235 CM FDA Start: 10-13-2021 Colonoscopy RESOLUTION 360 CLIP 235 CM FDA Start: 10-13-2021 Colonoscopy RESOLUTION 360 CLIP 235 CM FDA Start: 10-13-2021 Cement Simplex P Speedset - [id number] Start: 02-15-2013 Zwj-Qb-J-Kind Implant - [id number] Start: 09-03-2010 Comment on above: Description: surgica l simplex p radiopaque bone cement Global Unite Hea d 44x18 Ecc - [id number] Start: 02-15-2013 Comment on above: Description: C1776 G LOBAL UNITE HEAD 44X18 ECC Assemb Tapr 135d Fix - [id number] Start: 09-03-2010 Assemb Tapr Glob Ap Shldr Ball - [id number] Start: 02-15-2013 Comp Miguel 48mm G b Adv Anchr - [id number] Start: 09-03-2010 Stem Hum 10mm Gl ob Ap - [id number] Start: 09-03-2010 Head Hum 18mm 48 mm Shldr Glob - [id number] Start: 09-03-2010 Comp Miguel 44mm G b Adv Anchr - [id number] Start: 02-15-2013 Stem Hum 8mm Ariella b Ap ldr - [id number] Start: 02-15-2013 Goals Date Patient Goal Desired Activity /State Mental Status Date Assessment Result Facility 11-23-2022 Cognitive function Voice/Name [facility] Work Phone: 10-13-2021 Cognitive function Voice/Name [facility] Work Phone: Telephone encounter Note 11-21-2023 Telephone Encounter - Judd Sal MD, PhD - 11/21/2023 12:30 PM EDT Note Date & Type Note Facility 11-21-2023 Telephone encounter Note Sirena Corrigan 1945 78 year old History: I contacted this patient by telephone to get follow-up of her shoulder arthroplasty which was performed on the left side and 2012. She is now about 10 years from her surgery. She reports that she is doing very well with her shoulder is very pleased with the result has minimal pain and is able to do all of her functional activities. She reports low functional demand. Her SANE score was 90 points. I discussed with her getting new x-rays of the shoulder but she did not have an interest in doing this. Judd Sal M.D. [facility] Work Phone: Note 11-21-2023 Telephone Encounter - Judd Sal MD, PhD - 11/21/2023 12:30 PM EDT Note Date & Type Note Facility 11-21-2023 Miscellaneous Notes Formattin g of this note might be different from the original. Sirena Corrigan 1945 78 year old History: I contacted this patient by telephone to get follow-up of her shoulder arthroplasty which was performed on the left side and 2012. She is now about 10 years from her surgery. She reports that she is doing very well with her shoulder is very pleased with the result has minimal pain and is able to do all of her functional activities. She reports low functional demand. Her SANE score was 90 points. I discussed with her getting new x-rays of the shoulder but she did not have an interest in doing this. Judd Sal M.D. documented in this encounter [facility] History and physical note 11-23-2022 Note Date & Type Note Facility 11-23-2022 History and physi dillon note Note Date/Time November 23, 2022 7:59am [facility] Medical Records Department [address] [place] [address] History & Physical Exam 11/23/22 0758 MR#: [id number] Acct: [id number] Name: SIRENA CORRIGAN Rep #:[id number] : 1945 77 From: Tom Parnell MD PCP: Dr. Garry Dillon MD Status:[facility] Location: [place] [address] History and Physical Date of Admission: 11/23/22 Intake Visit Reasons:?Yearly C-Scope Chief Complaint: yearly c-scope Allergies Penicillins Allergy (Verified 10/14/22 13:25) HivesSulfa (Sulfonamide Antibiotics) Allergy (Verified 10/14/22 13:25) Hivesmorphine Adverse Reaction (Verified 10/14/22 13:25) Nausea/Vom/Diarrhea Medications diphenoxylate-atropine 2.5 mg-0.025 mg tablet (Lomotil) 1 tab PO DAILY PRN Diarrhea 10/06/20 [History Confirmed 10/14/22] losartan 100 mg tablet 100 mg PO DAILY 10/06/20 [History Confirmed 10/14/22] metoprolol succinate 100 mg tablet,extended release 24 hr 100 mg PO BID 10/06/20[History Confirmed 10/14/22] omeprazole 20 mg capsule,delayed release 20 mg PO DAILY 10/06/20 [History Confirmed 10/14/22] sertraline 100 mg tablet 100 mg PO DAILY 10/06/20 [History Confirmed 10/14/22] vit C 250 mg-vit E 90 mg-zinc 40 mg-copper 1 ib-axtdhd-rluxmg capsule (PreserVision AREDS-2) 1 tab PO DAILY 10/30/20 [History Confirmed 10/14/22] ergocalciferol (vitamin D2) 1,250 mcg (50,000 unit) capsule 50,000 unit PO MO 10/05/21 [History Confirmed 10/14/22] gabapentin 100 mg capsule 100 mg PO DAILY 10/05/21 [History Confirmed 10/14/22] PFSH Medical History?(Updated 10/09/21 @ 13:29 by Megan Evangelista) Abdominal pain Arthritis Back pain Cancer Complete edentulism, class III Depression Diarrhea Gastric reflux GERD (gastroesophageal reflux disease) History of edema History of irregular heartbeat History of pain when walking History of renal disease History of stress test HTN (hypertension) Hx of echocardiogram Macular degeneration Migraine headache Non-smoker Restless legs Wears glasses Surgical History?(Updated 10/09/21 @ 13:29 by Megan Evangelista) History of colonoscopy (~2020) S/P carpal tunnel release S/P laparoscopic cholecystectomy S/P shoulder replacement S/P tonsillectomy Family History? Father Colon cancerGrandmother CVA (cerebral vascular accident)Grandfather CVA (cerebral vascular accident)Mother Heart disease Social History? Smoking Status:? Never smoker alcohol intake:? current alcohol intake frequency: holidays/special occasions only HPI HPI HPI: 77-year-old female presents today to discuss a surveillance colonoscopy.? Her most recent procedure was performed by myself on October 13, 2021.? She has a personal history of colon polyps.? At that setting a 6 mm polyp was seen in the proximal ascending colon removed with hot snare.? A 25 mm polyp was found at thehepatic flexure.? This was sessile.? Combination of hot snare and cold forcep biopsy was attempted to remove the entire polyp.? At the completion a hemostaticclip was placed.? Additionally there were 2 sessile polyps seen in the proximal descending colon.? Those were removed with hot snare.? She has extensive diverticular disease of the sigmoid and descending colon as well. Presents with her daughter today.? The patient actually has had several falls.? She supposed to be using a walker but does not do that.? Mostly lives a sedentary lifestyle.? No current complaints of abdominal pain black stools or blood in her stools. ROS General General: Yes fatigue; No weight change, appetite, colon cancer, breast cancer or weakness HEENT HEENT: No difficulty swallowing, eye injury, eye surgery, swollen glands or hoarseness Endo Endocrine: No thyroid disease, diabetes mellitus, thyroid cancer, Hair loss, heat intolerance or cold intolerance Skin Skin: No rash or changing moles Musc Musculoskeletal: Yes back problems and arthritis; No rheumatoid arthritis, gout or joint pain Cardio Cardiovascular: Yes murmur and high blood pressure; No pacemaker, heart disease, atrial fibrillation, heart attack, heart stent, palpitations, shortness of breat with exertion or chest pain Psych Psychiatric: Yes depression and anxiety; No hearing voices Resp Respiratory: No shortness of breath, No sleep apnea, No cough, No COPD, No asthma, No emphysema and No wheezing Gastro Gastrointestinal: No abdominal pain, No nausea or vomiting, Yes diarrhea, Yes constipation, Yes blood in stool, Yes acid reflux, Yes hemorrhoids, No ulcers, No gallbladder problem and No black,tarry stools Matthias Hematologic: No blood thinners, No blood disorders, No bleeding, No anemia and No blood clots Neuro Neurologic: No system reviewed and no additional complaints, except as documented, No as per HPI, No abnormal gait, No abnormal hearing, No abnormal movements, No abnormal speech, No behavioral changes, No burning sensations, No confusion, No convulsions, No disequilibrium, No dizziness, No localized weakness, No frequent falls, No headache(s), No lack of coordination, No loss ofvision, No memory loss, Yes numbness, No other visual disturbances, No radicularpain, No restless legs, No sensory deficit, No syncope, Yes tingling, No tremor(s), No weakness and No other Exam Const General: cooperative and comfortable Nutritional Appearance: obese morbidly obese [facility] Head: normal to inspection Neck Neck: normal visual inspection Resp Effort & Inspection: normal respiratory effort Auscultation: clear to auscultation bilaterally Cardio Rate: regular rate Rhythm: regular rhythm GI Palpation: soft and no hepatosplenomegaly Other: Patient has a large abdomen, I am not able to detect any internal organs, no focal tenderness Musc Cervical Spine: normal cervical lordosis Neuro General: patient alert, patient awake and patient oriented x3 Extrem General: no calf tenderness Assessment and Plan Assessment and Plan (1) Family history of colon cancer in father: ?Status:?Acute ?Plan: 77-year-old female who is felt to be at higher risk due to the number of colon polyps she had and the size and location at the hepatic flexure of the previous polyp.? She presents now for surveillance to assure clearance.? She has had an opportunity to ask and have questions answered.? We will schedule procedure at her discretion. Regarding the patient's falls at home I would concur with the patient's daughterthat the patient should be using a support device as needed.? I have cautioned her that falls place her at significant risk.? She is had an opportunity to ask and have questions answered and seems to understand. I appreciate the ongoing opportunity of assisting with her surgical care Copy: Dr Garry Parnell M.D., F.A.C.S I have examined the patient and the H&P has been reviewed. There are no clinicalchanges since date of exam. Tom Parnell M.D., F.A.C.S. 11/23/22 0759 <Electronically signed by Tom Parnell MD> Cosigner Signature (if applicable): CC: Dr. Garry Dillon MD; Dr. Tom Parnell MD~ Signed [facility] Work Phone: Procedure note 11-23-2022 Note Date & Type Note Facility 11-23-2022 Procedure note [facility] Procedure note 11-23-2022 Note Date & Type Note Facility 11-23-2022 Procedure note [facility] Evaluation note Note Date & Type Note Facility Evaluation note No assessment information availa ble [facility] Work Phone: Evaluation note Note Date & Type Note Facility Evaluation note Diagnosis Onset Date Adenomatous colon polyp acut e [facility] Work Phone: Evaluation note Note Date & Type Note Facility Evaluation note Diagnosis Onset Date Family history of colon cancer in father acute [place] [facility] Work Phone: Reason for referral (narrative) Note Date & Type Note Facility Reason for referral (narrative) No reason for referral information available [facility] Work Phone: Family History No Family History Records Found Relationship Condition Age at Onset Recorded Date/T sergio father Malignant neoplasm of colon Unknown grandmother Cerebrovascular accident (CVA) Unknown grandfather Cerebrovascular accident (CVA) Unknown mother Cardiac disease Unknown Advance Directives No Advanced Directives Records Found Advance Directive Response Recorded Date/ Time Living Will Yes October 30, 2020 1 0:47am Power of Supervisor [employer] Yes October 30, 2020 10:47am Advance Directive Response Recorded Date/ Time Living Will No October 09, 2021 1 :20pm Power of Supervisor [employer] No October 09, 2021 1:20pm Advance Directive Response Recorded Date/ Time Living Will No October 09, 2021 1 2:20pm Power of Supervisor [employer] No October 09, 2021 12:20pm Advance Directive Response Recorded Date/ Time Living Will No November 19, 2022 2:41pm Power of Supervisor [employer] No November 19 2:41pm Advance Directive Response Recorded Date/ Time Living Will No November 19, 2022 1:41pm Power of Supervisor [employer] No November 19 3 1:41pm Chief Complaint and Reason for Visit Chief Complaint YEARLY COLONOSCOPY D UE TO POLYPS Reason for Visit Adenomatous colon po lyp Chief Complaint ADD XRAY/ KNEE PAIN Chief Complaint ADD XRAYS- FACET ART HROPATHY Chief Complaint ADD XRAYS- FACET ART HROPATHY Yearly C-Scope Reason for Visit Family history of co jacquelyn cancer in father History of colonic polyps Chief Complaint Yearly C-Scope Reason for Visit Family history of co jacquelyn cancer in father History of colonic polyps Summary Purpose Additional Source Comments Goals (unrecognized section and content) Goals may be documented in a n alternate sectionGoals may be documented in an alternate sectionGoals may be documented in an alternate sectionGoals may be documented in an alternate sectionGoals may be documented in an alternate sectionGoals may be documented in an alternate sectionGoals may be documented in an alternate section Care Teams (unrecognized sec tion and content) Team Status: Active Member Role Status Dates Dr. Hadley Escoto MD Family Provider Active Dr. Garry Dillon MD Primary Care Provider Active Team Status: Inactive Member Role Status Dates Dr. Garry Dillon MD Primary Care Pr ovider, Attending Provider, Referring Provider Active Team Status: Inactive Member Role Status Dates Dr. Garry Dillon MD Primary Care Provider Active Dr. Tom Parnell MD Attending Provider, Referring Provider Active Team Status: Active Member Role Status Dates Dr. Garry Dillon MD Primary Care Provider, Referr ing Provider Active Dr. Tom Parnell MD Attending Provider, Other Prov ider Active Team Status: Inactive Member Role Status Dates Dr. Garry Dillon MD Primary Care Provider, Referr ing Provider Active Dr. Tom Parnell MD Attending Provider Active Team Status: Inactive Member Role Status Dates Dr. Garry Dillon MD Primary Care Provider, Attend ing Provider Active Team Status: Inactive Member Role Status Dates Dr. Garry Dillon MD Primary Care Provider Active Start: August 21, 2024 End: August 21, 2024 Dr. Garry Dillon MD Attending Provider Active Start: August 21, 2024 End: August 21, 2024 Dr. Garry Dillon MD Referring Provider Active Start: August 21, 2024 End: August 21, 2024 Source Comments (unrecognize d section and content) In the event this informatio n is protected by the Federal Confidentiality of Alcohol and Drug Abuse Patient Records regulations: The Federal rules restrict any use of the information to criminally investigate or prosecute any alcohol or drug abuse patient.[facility] INFORMATION SOURCE (unrecogn ized section and content) DATE CREATED AUTHOR 11/22/2023 [facility] DATE CREATED AUTHOR AUTHOR'S ORGANIZ ATION 09/03/2024 [facility] FOR RECORDS PERTAINING TO PATIENTS WHO ARE [...] BE BASED ON THE PRIMARY CLINICAL RECORDS. [employer] provides no warranty or guarantee of the accuracy or completeness of information in this document.
== END | disposition home or self-care (01) ==
LOC: MFPLAB 15:09
PROVIDERS: PCP Family Medicine; Referring Provider Family Medicine; Visit Provider Family Medicine
DX: E55.9 Vitamin D deficiency, unspecified (principal); E11.22 Type 2 diabetes mellitus with diabetic chronic kidney disease; N18.9 Chronic kidney disease, unspecified
CPT/HCPCS: 36415; 80053; 80061; 81001; 82043; 82306; 82570; 83036; 84156; 85025; 85652

== ENCOUNTER 2025-03-10 18:25 | Emergency (ER) | payer MEDICARE, SELFPAY ==
[2025-03-10 18:26] VITALS: BP 138/60; PULSE 71; RESP 18; TEMP 36.3; O2SAT 96; BMI 39.1
--- NOTE | 2025-03-10 18:38 | RAD_ITS ---
EXAM: XR Left Wrist Complete, 3 or More Views CLINICAL INDICATION: PAIN TECHNIQUE: Frontal, lateral and oblique views of the left wrist. COMPARISON: No relevant prior studies available. FINDINGS: BONES/JOINTS: Severe degenerative changes of the 1st carpometacarpal joint. Apparent flattening of the trapezium and scaphoid with sclerosis could be performed prior injury. Clinical correlation is recommended. No acute fracture. No dislocation. SOFT TISSUES: Soft tissue swelling. No radiopaque foreign body. RAD/Wrist min 3 Views IMPRESSION: 1. Soft tissue swelling. 2. Apparent flattening of the trapezium and scaphoid with sclerosis could be p erformed prior injury. Clinical correlation is recommended. 3. If symptoms persist, further evaluation with MRI is recommended. Reading Location: [facility]
--- NOTE | 2025-03-10 19:49 | EX.ED.UPPERE ---
HPI History of Present Illness HPI Narrative: Patient presents with left wrist injury that occurred 2 days ago. Patient states she hit the back of her hand against a chair. Patient states that yesterday she was trying to get into a pickup truck when she fell and landed on her left wrist again. Patient states she landed on the dorsal aspect of her left wrist and hand. Patient describes her pain as aching and stabbing. Patient states it is worse with movement and palpation. Patient is nothing makes it better. Patient admits to occasional tingling into the tips of her fingers. Patient denies any weakness. Patient denies any head injury or loss of consciousness. Patient denies any other injuries. Chief Complaint: Upper Extremity Injury Informant: patient Occured/Mechanism Mechanism/Context: Yes direct blow and Yes fall Onset/Context/Timing Onset: Days (2) Timing: Continuous Quality of Pain: Aching and Stabbing Location: Left wrist Worsened by: Palpation, movement Relieved by: Nothing Associated Symptoms Associated Symptoms: Positive for Parasthesia; Negative for Weakness or Loss of Funtion PFSH [facility] Medical History Loss of hearing Wears partial dentures Wears dentures Neuropathy History of diverticulitis Cancer History of pain when walking Abdominal pain Wears glasses Arthritis Back pain Migraine headache Gastric reflux Non-smoker History of edema Hx of echocardiogram History of stress test HTN (hypertension) Macular degeneration Diarrhea Depression GERD (gastroesophageal reflux disease) Home Medications ?Medication ?Instructions ?Recorded ?Last Taken ?Type diphenoxylate-atropine 2.5 1 tab PO DAILY PRN Diarrhea 10/06/20 Unknown History mg-0.025 mg tablet (Lomotil) losartan 100 mg tablet 100 mg PO DAILY 10/06/20 11/23/22 History metoprolol succinate 100 mg 100 mg PO BID 10/06/20 11/23/22 History tablet,extended release 24 hr omeprazole 20 mg capsule,delayed 20 mg PO DAILY 10/06/20 11/23/22 History release sertraline 100 mg tablet 100 mg PO DAILY 10/06/20 Unknown History vit C 250 mg-vit E 90 mg-zinc 40 1 tab PO DAILY 10/30/20 Unknown History mg-copper 1 [id number] capsule (PreserVision AREDS-2) ergocalciferol (vitamin D2) 1,250 50,000 unit PO MO 10/05/21 Unknown History mcg (50,000 unit) capsule gabapentin 100 mg capsule 300 mg PO TID 10/05/21 11/23/22 History Allergy/AdvReac Type Severity Reaction Status Date / Time Penicillins Allergy Hives Verified 03/10/25 18:28 Sulfa (Sulfonamide Allergy Hives Verified 03/10/25 18:28 Antibiotics) morphine AdvReac Nausea/Vom/ Verified 03/10/25 18:28 Diarrhea Family History Father Colon cancer Grandmother CVA (cerebral vascular accident) Grandfather CVA (cerebral vascular accident) Mother Heart disease Surgical History Hx of right cataract extraction History of colonoscopy (~2020) S/P tonsillectomy S/P shoulder replacement S/P carpal tunnel release S/P laparoscopic cholecystectomy Social History housing: house Smoking Status: Never smoker alcohol intake: current alcohol intake frequency: holidays/special occasions only ROS ROS ED Constitutional Constitutional ED: Denies chills or fever(s) Eyes Eyes: Denies blurry vision or change in vision ENT ENT ED: Denies rhinorrhea or sore throat Cardiovascular Cardiovascular: Denies chest pain or palpitations Respiratory/Chest Respiratory/Chest: Denies cough or dyspnea Gastrointestinal Gastrointestinal: Denies nausea or vomiting Genitourinary Genitourinary ED: Denies dysuria or hematuria Musculoskeletal Musculoskeletal: Denies back pain or neck pain Integumentary Denies abscess or rash Neurologic Neurologic: Denies headache(s) or weakness Allergic/Immunologic Allergic/Immunologic ED: Denies mouth swelling or urticaria EXAM Physical Exam Const Vital Signs: 03/10/25 18:26 Temperature 97.4 F L Temperature Source Temporal Pulse Rate 71 Respiratory Rate 18 Blood Pressure 138/60 H Blood Pressure Mean 86 Pulse Ox 96 Oxygen Delivery Method Room Air Positive well nourished and well developed General Appearance ED: well developed and NAD HEENT Reports moist mucous membranes Neck full ROM Extremity Extremity Narrative: There is tenderness with mild edema over the left wrist. There is no obvious deformity noted. Range of motion is limited in all motions of the left wrist secondary to pain. Radial pulses are equal bilaterally. Strength is 5/5 in the radial, median, and ulnar areas. Sensation was intact to light touch in the radial, median, and ulnar areas. Neuro oriented x3, CN's II-XII intact bilaterally, moves all extremities, no focal motor deficits and no sensory deficits noted Sensorium / Orientation: alert Motor Exam: strength 5/5 throughout Psych mental status grossly normal MDM MDM MDM Narrative Medical decision making narrative: Differential diagnosis includes fracture, sprain, and contusion. X-rays of the left wrist will be obtained to assess for fracture. Radiography Diagnostic Testing: Clinical Impression(s) from Imaging Studies Wrist X-Ray 03/10/25 18:38 IMPRESSION: 1. Soft tissue swelling. 2. Apparent flattening of the trapezium and scaphoid with sclerosis could be performed prior injury. Clinical correlation is recommended. 3. If symptoms persist, further evaluation with MRI is recommended. Reading Location: [facility] X-rays of the left wrist were obtained. There are 4 views. On my independent interpretation, there is no acute fracture noted. There are degenerative changes noted. Radiologist also interpreted the x-rays and agrees. Treatment and Re-Evaluation Narrative: Patient was advised of her findings. Patient was given a thumb spica brace. Patient was instructed to ice and elevate the left wrist. Patient was instructed to take Tylenol or ibuprofen as needed for pain. Patient was instructed to return if worse in any way. Patient understood and was agreeable with the plan. All questions were answered Discharge Plan Triage Chief Complaint: Upper Extremity Injury ED Provider: Alexander Montoya Dx/Rx/DC Orders Clinical Impression: Left wrist sprain, Fall Instructions: ED Wrist Sprain Prescriptions: No Action losartan 100 mg tablet 100 mg PO DAILY metoprolol succinate 100 mg tablet extended release 24 hr 100 mg PO BID sertraline 100 mg tablet 100 mg PO DAILY diphenoxylate-atropine [Lomotil] 2.5-0.025 mg tablet 1 tab PO DAILY PRN (Reason: Diarrhea) omeprazole 20 mg capsule,delayed release(DR/EC) 20 mg PO DAILY ergocalciferol (vitamin D2) 1,250 mcg (50,000 unit) capsule 50,000 unit PO MO gabapentin 100 mg capsule 300 mg PO TID PreserVision AREDS-2 250-90-40-1 mg Capsule 1 tab PO DAILY Primary Care Provider: Garry Dillon Referrals: Garry Dillon MD [Primary Care Provider, [facility]] - 5-7 Days Print Language: Icelandic Disposition Disposition: Home, Self Care
[2025-03-10 20:14] VITALS: BP 138/60; PULSE 71; RESP 18; TEMP 36.3; O2SAT 96
== END 2025-03-10 20:55 | disposition home or self-care (01) ==
PROVIDERS: Emergency Provider Emergency Medicine; PCP Family Medicine; Visit Provider Emergency Medicine
DX: S63.92XA Sprain of unspecified part of left wrist and hand, initial encounter (principal); W19.XXXA Unspecified fall, initial encounter
CPT/HCPCS: 73110; 99283

== ENCOUNTER → 2025-04-17 | Outpatient (CLI) | payer MEDICARE, SELFPAY ==
[2025-04-17 17:38] LABS: Hematocrit 37.6 % (37-47); Hemoglobin 11.9 g/dL (12.0-15.0); Immature Granulocytes Count 0.030 X10^3/uL (0.0-0.0); Mean Corp Hgb Conc 31.6 g/dL (32-36); Mean Corpuscular Volume 93.5 fL (81-99); Mean Platelet Vol. 10.4 fl (6.2-12.0); NRBC Flagged by Analyzer 0 % (0-5); Platelet Count 236 K/mm3 (150-450); RBC Distribution Width CV 13.0 % (11.6-14.6); RBC Distribution Width SD 44.5 fl (35.1-43.9); Red Blood Count 4.02 M/mm3 (4.2-5.4); White Blood Count 7.1 K/mm3 (4.4-11.0)
[2025-04-17 18:27] LABS: AST(SGOT) 20 U/L (<=31); Alanine Aminotransfer ALT/SGPT 10 U/L (<=34); Albumin, Serum 4.2 g/dL (3.4-4.8); Alkaline Phosphatase 89 U/L (35-104); Anion Gap 9 (5-15); BUN 24 mg/dL (4-19); BUN/Creat Ratio 20.8 RATIO (10-20); Calcium,Total 9.5 mg/dL (7.6-11.0); Carbon Dioxide 26.9 mmol/L (21.0-32.0); Chloride 106 mmol/L (98-108); Cholesterol 135 mg/dL (<=200); Globulin 2.9 g/dL (2.2-4.2); Glucose 106 mg/dL (70-99); Low Density Lipoprotein Calc. 63 mg/dL; Potassium 4.5 mmol/L (3.3-5.1); Triglycerides 172 mg/dL; Very Low Density Lipoprotein 34 mg/dL (5-40); Vitamin D,25 Hydroxy 26.9 ng/mL (30-100); cholesterol:hdl ratio screen 3.10
== END | disposition home or self-care (01) ==
LOC: MTLAB 14:09
PROVIDERS: PCP Family Medicine; Referring Provider Family Medicine; Visit Provider Family Medicine
DX: E11.59 Type 2 diabetes mellitus with other circulatory complications (principal); E55.9 Vitamin D deficiency, unspecified
CPT/HCPCS: 36415; 80053; 80061; 82306; 83036; 85025